=== PATIENT | female | born 1940 | race American Indian/Alaskan Native ===

== ENCOUNTER 2017-04-19 16:22 | Inpatient (IN) | payer MEDICARE, MEDICAID ==
[2017-04-19] MEDS ORDERED: Pantoprazole 40 MG in Sodium Chloride 0.9% 100 ML IV STA (16:45)
[2017-04-19] MEDS ORDERED: Sodium Chloride 0.9% 500 ML IV ONE (16:46)
--- NOTE | 2017-04-19 16:49 | ED PDOC ---
Arrival/HPI - General Chief Complaint: Abdominal Pain Time Seen by Provider: 04/19/17 16:27 Historian: Patient, EMS - History of Present Illness Time/Duration: Other (This morning) Symptom Onset: Gradual Symptom Course: Worsening Quality: Aching, Cramping Severity Level: Moderate Activities at Onset: Rest Associated Symptoms (Text): 04/19/17 16:47 Patient complains of generalized abdominal pain along with nausea vomiting and diarrhea beginning sometime this morning. There is chronic abdominal pain. She had CT scan and ultrasound of the abdomen in the spring which revealed cholelithiasis only. She denies fever or chills. Denies radiation. No back pain. No chest pain palpitations or dyspnea. No genitourinary symptoms. She is thin cachectic and chronically ill-appearing. Past Medical History - Infectious Disease Hx of Infectious Diseases: None - Reproductive Menopause: Yes - Cardiac Hx CT: Yes Hx Pacemaker: No - Neurological Hx Paralysis: No - Hematological/Oncological Hx Blood Transfusions: No Hx Blood Transfusion Reaction: No - Musculoskeletal/Rheumatological Hx Musculoskeletal Disorders: Yes - Psychiatric Hx Emotional Abuse: No Hx Physical Abuse: No Hx Substance Use: Yes (MARIJANA DAILY) - Surgical History Hx Hysterectomy: Yes - Anesthesia Hx Anesthesia: Yes Hx Anesthesia Reactions: No Hx Malignant Hyperthermia: No - Suicidal Assessment Feels Threatened In Home Enviroment: No Family/Social History - Physician Review Nursing Documentation Reviewed: Yes Family/Social History: Unknown Family HX Smoking Status: Never Smoked Hx Alcohol Use: Yes (6 PK/DAY BEER) Hx Substance Use: Yes (MARIJANA DAILY) Allergies/Home Meds Allergies/Adverse Reactions: Allergies No Known Allergies Allergy (Verified 07/06/13 11:01) Home Medications: Home Meds Medication Instructions Recorded Confirmed Atorvastatin Calcium [Lipitor] 40 mg PO DAILY 07/06/13 04/19/17 Esomeprazole Magnesium [Nexium] 40 mg PO DAILY 07/06/13 04/19/17 Aspirin [Ecotrin] 81 mg PO DAILY 04/04/16 04/19/17 Cholecalciferol (Vitamin D3) 1,000 unit PO DAILY 04/04/16 04/19/17 [Vitamin D3] Metoprolol Succinate [Metoprolol 100 mg PO DAILY 04/04/16 04/19/17 Succinate Xl] Valsartan [Diovan] 80 mg PO DAILY 04/04/16 04/19/17 Review of Systems - Physician Review All systems were reviewed & negative as marked: Yes - Review of Systems Constitutional: Fatigue. absent: Fevers Respiratory: absent: SOB, Cough, Wheezing Cardiovascular: absent: Chest Pain, Palpitations, Syncope Gastrointestinal: Abdominal Pain, Diarrhea, Nausea, Vomiting Genitourinary Female: absent: Dysuria, Frequency, Hematuria Neurological: absent: Headache, Dizziness Physical Exam Vital Signs Temp Pulse Resp BP Pulse Ox 04/19/17 18:29 60 15 147/82 100 04/19/17 17:45 57 L 13 151/80 H 100 04/19/17 16:31 98.6 F 57 L 19 150/78 100 Temperature: Afebrile Blood Pressure: Normal Pulse: Regular Respiratory Rate: Normal Appearance: Positive for: Well-Appearing, Non-Toxic, Uncomfortable, Cachectic Pain Distress: Mild Mental Status: Positive for: Alert and Oriented X 3 - Systems Exam Head: Present: Atraumatic, Normocephalic Pupils: Present: PERRL Extroacular Muscles: Present: EOMI Conjunctiva: Present: Normal Mouth: Present: Moist Mucous Membranes Pharnyx: No: ERYTHEMA, EXUDATE, TONSILS ENLARGED Neck: Present: Normal Range of Motion Respiratory/Chest: Present: Clear to Auscultation, Good Air Exchange, Decreased Breath Sounds. No: Respiratory Distress, Accessory Muscle Use Cardiovascular: Present: Regular Rate and Rhythm, Normal S1, S2. No: Murmurs Abdomen: Present: Tenderness (mild generalized tenderness with no guarding and no rebound), Normal Bowel Sounds. No: Distention, Peritoneal Signs, Rebound, Guarding Back: Present: Normal Inspection. No: CVA Tenderness, Midline Tenderness, Paraspinal Tenderness Upper Extremity: Present: Normal Inspection. No: Cyanosis, Edema Lower Extremity: Present: Normal Inspection. No: Edema Neurological: Present: GCS=15, CN II-XII Intact, Speech Normal, Motor Func Grossly Intact Skin: Present: Warm, Dry, Normal Color. No: Rashes Psychiatric: Present: Alert, Oriented x 3, Normal Insight, Normal Concentration Medical Decision Making ED Course and Treatment: 04/19/17 17:14 EKG shows normal sinus rhythm rate approximately 55 with poor R waves and no acute ST or T-wave changes 04/19/17 18:13 CT scan of the abdomen and pelvis as read by the radiologist shows a possible early small bowel obstruction. 04/19/17 18:34 Patient of 's. Hospitalist will admit - Lab Interpretations Lab Results: 04/19/17 17:05 04/19/17 17:05 Lab Results 04/19/17 17:26: Urine Color Yellow, Urine Appearance Clear, Urine pH 6.0, Ur Specific [place] 1.020, Urine Protein Negative, Urine Glucose (UA) Negative, Urine Ketones Negative, Urine Blood Small H, Urine Nitrate Negative, Urine Bilirubin Negative, Urine Urobilinogen 0.2, Ur Leukocyte Esterase Small H, Urine RBC 5 - 10, Urine WBC 10 - 15, Ur Epithelial Cells Many, Amorphous Sediment Small, Urine Bacteria Many, Urine Other Uyeast 04/19/17 17:05: Alcohol, Quantitative < 10 04/19/17 17:05: Sodium 140, Potassium 3.9, Chloride 107, Carbon Dioxide 22, Anion Gap 15, BUN 12, Creatinine 0.7, Est GFR ( Amer) > 60, Est GFR (Non- Af Amer) > 60, Random Glucose 114 H, Calcium 10.0, Total Bilirubin 0.5, AST 37 H , ALT 36, Alkaline Phosphatase 55, Lactate Dehydrogenase 550, Total Creatine Kinase 41, Troponin I < 0.01, Total Protein 7.0, Albumin 4.3, Globulin 2.7, Albumin/Globulin Ratio 1.6, Lipase 67 04/19/17 17:05: PT 10.2, INR 0.94, APTT 20.8 L 04/19/17 17:05: WBC 10.5 D, RBC 3.61, Hgb 12.7, Hct 36.6, MCV 101.4, MCH 35.2 H , MCHC 34.7, RDW 12.6, Plt Count 242, MPV 8.8, Gran % 75.4 H, Lymph % (Auto) 20.1 L, [place] % (Auto) 4.0, Eos % (Auto) 0.3 L, Baso % (Auto) 0.2, Gran # 7.90 H , Lymph # 2.1, [place] # 0.4, Eos # 0.0, Baso # 0.02 - RAD Interpretation Radiology Orders: 04/19/17 16:45 ABD & PELVIS W/O PO OR IV CONT [CT] Stat CHEST PORTABLE [RAD] Stat chest 1 view shows no infiltrate or effusion or cardiomegaly 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 - Medication Orders Current Medication Orders: Discontinued Medications Pantoprazole Sodium 40 mg/ (Sodium Chloride) 100 mls @ 400 mls/hr IV STAT STA Stop: 04/19/17 16:59 Last Admin: 04/19/17 17:00 Dose: 400 mls/hr eMAR Start Stop Document 04/19/17 17:00 GMI (Rec: 04/19/17 17:09 GMI [id number]) Intravenous Solution Start Date 04/19/17 Start Time 17:09 End Date 04/19/17 End time 17:50 Total Infusion Time 41 Sodium Chloride (Sodium Chloride 0.9%) 500 mls @ 500 mls/hr IV ONCE ONE Stop: 04/19/17 17:45 Last Admin: 04/19/17 17:06 Dose: 500 mls/hr eMAR Start Stop Document 04/19/17 17:06 GMI (Rec: 04/19/17 17:08 GMI [id number]) Intravenous Solution Start Date 04/19/17 Start Time 17:08 Ketorolac Tromethamine (Toradol) 15 mg IVP STAT STA Stop: 04/19/17 16:46 Last Admin: 04/19/17 17:20 Dose: 15 mg MAR Pain Assessment Document 04/19/17 17:20 GMI (Rec: 04/19/17 17:21 GMI [id number]) Pain Reassessment Is this a pain reassessment? Yes Sleep Is patient sleeping during reassessment? No Presence of Pain Presence of Pain Yes Pain Scale Used Pain Scale Used Numeric Location Pain Location Body Site Abdomen Description Description Constant Intensity of Pain at present 9 Pain Behavior Facial Grimacing Alleviating Factors/Management Position Change Techniques Distraction IVP Administration Document 04/19/17 17:20 GMI (Rec: 04/19/17 17:21 GMI [id number]) Charges for Administration # of IVP Administrations 1 Ondansetron HCl (Zofran Inj) 4 mg IVP STAT STA Stop: 04/19/17 16:46 Last Admin: 04/19/17 17:06 Dose: 4 mg IVP Administration Document 04/19/17 17:06 GMI (Rec: 04/19/17 17:06 GMI [id number]) Charges for Administration # of IVP Administrations 1 Disposition/Present on Arrival - Present on Arrival Any Indicators Present on Arrival: No History of DVT/PE: No History of Uncontrolled Diabetes: No Urinary Catheter: No History of Decub. Ulcer: No History Surgical Site Infection Following: None - Disposition Have Diagnosis and Disposition been Completed?: Yes Diagnosis: Abdominal pain, Nausea and vomiting, Partial small bowel obstruction Disposition: HOSPITALIZED Disposition Time: 18:22 Patient Plan: Observation Patient Problems: Current Active Problems Problem Status Onset Abdominal pain Acute Nausea and vomiting Acute Partial small bowel obstruction Acute Condition: FAIR Forms: [employer] (Guatemalan)
[2017-04-19 17:26] LABS: BASO # 0.02 K/mm3 (0.0-2.0); BASO % 0.2 % (0.0-3.0); EOS % 0.3 % (1.5-5.0); GRAN # 7.9 (1.4-6.5); GRAN % 75.4 % (50.0-68.0); HEMATOCRIT 36.6 % (36.0-48.0); LYMPH # 2.1 (1.2-3.4); LYMPH % 20.1 % (22.0-35.0); MEAN CELL VOLUME 101.4 fl (80.0-105.0); MEAN CORPUSCULAR HEMOGLOBIN 35.2 pg (25.0-35.0); MEAN CORPUSCULAR HGB CONC 34.7 g/dl (31.0-37.0); MEAN PLATELET VOLUME 8.8 fl (7.0-11.0); MONO # 0.4 (0.1-0.6); RED CELL DISTRIBUTION WIDTH 12.6 % (11.5-14.5); WHITE BLOOD COUNT 10.5 10^3/ul (4.5-11.0)
[2017-04-19 17:34] LABS: INR 0.94 (0.93-1.08); PARTIAL THROMBOPLASTIN TIME 20.8 Seconds (23.7-30.8)
[2017-04-19 17:38] LABS: URINE BILIRUBIN NEGATIVE (NEGATIVE); URINE BLOOD SMALL (NEGATIVE); URINE GLUCOSE (UA) NEGATIVE (NEGATIVE); URINE KETONE NEGATIVE (NEGATIVE); URINE LEUKOCYTE ESTERASE SMALL Leu/uL (NEGATIVE); URINE PROTEIN NEGATIVE mg/dL (<30 mg/dL); URINE UROBILINOGEN 0.2 E.U./dL (<1 E.U./dL)
[2017-04-19 17:43] LABS: URINE APPEARANCE CLEAR (CLEAR); URINE COLOR YELLOW (YELLOW)
[2017-04-19 17:54] LABS: URINE AMORPHOUS SEDIMENT SMALL; URINE BACTERIA MANY (NEG); URINE EPITHELIAL CELLS MANY /hpf (0-5)
[2017-04-19 17:57] LABS: ALB/GLOB RATIO 1.6 (1.1-1.8); ALKALINE PHOSPHATASE 55 U/L (38-126); ALT/SGPT 36 U/L (7-56); AST/SGOT 37 U/L (14-36); BILIRUBIN,TOTAL 0.5 mg/dL (0.2-1.3); BLOOD UREA NITROGEN 12 mg/dL (7-21); CARBON DIOXIDE 22 mmol/L (21-33); CHLORIDE 107 mmol/L (98-107); GFR AFRICAN-AMERICAN > 60; GLUCOSE,RANDOM 114 mg/dL (70-110); LIPASE 67 U/L (23-300); POTASSIUM 3.9 mmol/L (3.6-5.0); SODIUM 140 mmol/L (132-148)
--- NOTE | 2017-04-19 18:10 | CT ---
PROCEDURE: CT Abdomen and Pelvis without intravenous contrast HISTORY: Abdominal pain COMPARISON: 01/01/2017 CT abdomen and pelvis. 02/03/2017 abdominal ultrasound TECHNIQUE: Unenhanced study. Neither oral nor intravenous contrast administered. Sensitivity and specificity for acute inflammatory processes limited by the absence of oral and intravenous contrast. Radiation dose: Total exam DLP = 219.10 mGy-cm. This CT exam was performed using one or more of the following dose reduction techniques: Automated exposure control, adjustment of the mA and/or kV according to patient size, and/or use of iterative reconstruction technique. FINDINGS: LOWER THORAX: Unremarkable. LIVER: Unremarkable. No gross lesion or ductal dilatation. GALLBLADDER AND BILE DUCTS: Cholelithiasis without CT evidence of acute cholecystitis. PANCREAS: Unremarkable. No gross lesion or ductal dilatation. SPLEEN: Unremarkable. ADRENALS: Unremarkable. No mass. KIDNEYS AND URETERS: Unremarkable. No hydronephrosis. No solid mass. VASCULATURE: Unremarkable. No aortic aneurysm. BOWEL: Dilatation of distal loops of small bowel primarily affecting the ileum. No mechanical obstruction or extrinsic, mass lesion is identified. Distended colon filled with fecal debris. Gastric distension without mechanical, obstructing process. APPENDIX: Unremarkable. Normal appendix. PERITONEUM: Unremarkable. No free fluid. No free air. LYMPH NODES: Unremarkable. No enlarged lymph nodes. BLADDER: Unremarkable. REPRODUCTIVE: Unremarkable. BONES: No acute fracture. OTHER FINDINGS: None. IMPRESSION: Dilated loops of pelvic and right lower quadrant loops of small bowel. More proximally the small bowel is unremarkable. Differential considerations include ileus. Early, incomplete or Closed loop obstruction can also assume this appearance. Additional benign and/or incidental findings described above.
[2017-04-19 18:15] LABS: TROPONIN I < 0.01 ng/mL
[2017-04-19] MEDS ORDERED: Morphine 2 mg/ml ISec IVP PRN (20:40)
--- NOTE | 2017-04-19 20:46 | CP.PCM.HP ---
<Aroldo Bone - Last Filed: 04/20/17 05:03> History of Present Illness - History of Present Illness History of Present Illness: Chief Complaint Abdominal pain associated with severe nausea and vomiting HPI Patient is a 77 year old female with a past medical history of PUD, PVD, HTN, dyslipidemia, DE 96' who presents to [facility] ED on 04/19/17 with abdominal pain associated with nausea and vomiting. Patient states she went about her normal day had fish and grits for breakfast followed by ice cream for lunch. She states that she then took her heart and HTN medications. Around 1 pm while watching television patient states she felt sharp pins and needles diffusely throughout her abdomen radiating to her groin. Patient rated the pain a 10/10 which is exacerbated with any movement but especially towards the right side. Pain has no relieving factors. Patient admits to a surgical history including a hysterectomy which took place around 50 years ago. She states that she in the past frequently had colonoscopies done due to her first episode of bleeding ulcers when she was in her 30's; states that her last colonoscopy was between 5- 10 years prior. Patient admits to feeling dizzy from time to time which began a couple of months ago. Patient denies shortness of breath, headache, diarrhea, dysuria. PMD: Dr. Fitch Surgical history: hysterectomy Social history: states she quit smoking tobacco in 96', drinks 6 beers a day , admits to daily marijuana use Allergies: NKDA Family history: non-contributory Present on Admission - Present on Admission Any Indicators Present on Admission: No Review of Systems - Constitutional Constitutional: absent: Chills, Fever - EENT Eyes: absent: Blurred Vision, Diplopia Ears: absent: Decreased Hearing, Ear Discharge Nose/Mouth/Throat: absent: Nasal Congestion, Nasal Discharge - Cardiovascular Cardiovascular: absent: Chest Pain, Dyspnea, Edema - Respiratory Respiratory: absent: Cough, Dyspnea - Gastrointestinal Gastrointestinal: Abdominal Pain, Nausea, Vomiting - Genitourinary Genitourinary: absent: Change in Urinary Stream, Difficulty Urinating, Dysuria - Musculoskeletal Musculoskeletal: absent: Abnormal Gait, Back Pain - Integumentary Integumentary: absent: Alopecia, Bleeding Lesions - Neurological Neurological: absent: Abnormal Hearing, Abnormal Movements - Psychiatric Psychiatric: absent: Abnormal Sleep Pattern, Anhedonia - Endocrine Endocrine: absent: Change in Body Appearance, Cold Intolorance - Hematologic/Lymphatic Hematologic: absent: Easy Bleeding, Easy Bruising Past Patient History - Infectious Disease Hx of Infectious Diseases: None - Past Social History Smoking Status: Never Smoked - CARDIAC Hx Heart Attack: Yes Hx Pacemaker: No - NEUROLOGICAL Hx Paralysis: No - HEMATOLOGICAL/ONCOLOGICAL Hx Blood Transfusions: No Hx Blood Transfusion Reaction: No - MUSCULOSKELETAL/RHEUMATOLOGICAL Hx Musculoskeletal Disorders: Yes - PSYCHIATRIC Hx Emotional Abuse: No Hx Physical Abuse: No Hx Substance Use: Yes (MARIJANA DAILY) - SURGICAL HISTORY Hx Hysterectomy: Yes - ANESTHESIA Hx Anesthesia: Yes Hx Anesthesia Reactions: No Hx Malignant Hyperthermia: No Meds Allergies/Adverse Reactions: Allergies Allergy/AdvReac Type Severity Reaction Status Date / Time No Known Allergies Allergy Verified 07/06/13 11:01 Physical Exam - Constitutional Appears: Non-toxic - Head Exam Head Exam: ATRAUMATIC, NORMAL INSPECTION, NORMOCEPHALIC - Eye Exam Eye Exam: EOMI, Normal appearance - ENT Exam ENT Exam: Mucous Membranes Moist, Normal Exam - Neck Exam Neck exam: Positive for: Normal Inspection - Respiratory Exam Respiratory Exam: Clear to Auscultation Bilateral, NORMAL BREATHING PATTERN - Cardiovascular Exam Cardiovascular Exam: REGULAR RHYTHM, +S1, +S2. absent: Diastolic murmur, Irregular Rhythm, Systolic Murmur - GI/Abdominal Exam GI & Abdominal Exam: Soft, Tenderness (diffuse). absent: Distended, Normal Bowel Sounds - Back Exam Back exam: NORMAL INSPECTION - Neurological Exam Neurological exam: Alert, CN II-XII Intact, Oriented x3 Results - Vital Signs Recent Vital Signs: Last Vital Signs Temp 98.6 F 04/19/17 16:31 Pulse 60 04/19/17 18:29 Resp 15 04/19/17 18:29 BP 147/82 04/19/17 18:29 Pulse Ox 100 04/19/17 18:29 - Labs Result Diagrams: 04/19/17 17:05 04/19/17 17:05 Assessment & Plan - Assessment and Plan (Free Text) Assessment: Assessment 77 year old female with small bowel ileus Plan 1. Small Bowel Ileus -CT abdomen revealed dilated loops of pelvic and right lower quadrant loops of small bowel - NPO - IVF - Zofran - Toradol - GI consulted; recs appreciated - Surg consulted; recs appreciated 2. PUD - Protonix 3. HTN - Metoprolol 4. PVD - Aspirin 5. Dyslipidemia - Atorvastatin DVT/GI prophylaxis - Heparin/Protonix <Theresa Virgen - Last Filed: 04/20/17 18:45> Results - Vital Signs Recent Vital Signs: Last Vital Signs Temp 98.7 F 04/20/17 16:21 Pulse 61 04/20/17 16:21 Resp 20 04/20/17 16:21 BP 184/94 H 04/20/17 16:21 Pulse Ox 99 04/20/17 16:21 - Labs Result Diagrams: 04/20/17 06:00 04/20/17 06:00 Labs: Laboratory Results - last 24 hr 04/20/17 04/20/17 04/20/17 00:18 06:00 06:00 WBC 9.0 RBC 3.73 Hgb 12.8 Hct 37.7 MCV 101.1 MCH 34.3 MCHC 34.0 RDW 12.6 Plt Count 242 MPV 8.7 Gran % 81.3 H Lymph % (Auto) 15.7 L [place] % (Auto) 2.9 Eos % (Auto) 0.0 L Baso % (Auto) 0.1 Gran # 7.35 H Lymph # 1.4 [place] # 0.3 Eos # 0.0 Baso # 0.01 PT INR APTT Sodium 143 Potassium 3.6 Chloride 108 H Carbon Dioxide 26 Anion Gap 13 BUN 9 Creatinine 0.8 Est GFR ( Amer) > 60 Est GFR (Non-Af Amer) > 60 Random Glucose 116 H Calcium 9.9 Phosphorus 3.0 Magnesium 1.9 Total Bilirubin 0.5 AST 31 ALT 32 Alkaline Phosphatase 60 Total Protein 6.8 Albumin 4.2 Globulin 2.6 Albumin/Globulin Ratio 1.6 Urine Opiates Screen Negative Urine Methadone Screen Negative Ur Barbiturates Screen Negative Ur Phencyclidine Scrn Negative Ur Amphetamines Screen Negative U Benzodiazepines Scrn Negative U Oth Cocaine Metabols Negative U Cannabinoids Screen Positive H 04/20/17 06:00 WBC RBC Hgb Hct MCV MCH MCHC RDW Plt Count MPV Gran % Lymph % (Auto) [place] % (Auto) Eos % (Auto) Baso % (Auto) Gran # Lymph # [place] # Eos # Baso # PT 10.2 INR 0.94 APTT 24.5 Sodium Potassium Chloride Carbon Dioxide Anion Gap BUN Creatinine Est GFR ( Amer) Est GFR (Non-Af Amer) Random Glucose Calcium Phosphorus Magnesium Total Bilirubin AST ALT Alkaline Phosphatase Total Protein Albumin Globulin Albumin/Globulin Ratio Urine Opiates Screen Urine Methadone Screen Ur Barbiturates Screen Ur Phencyclidine Scrn Ur Amphetamines Screen U Benzodiazepines Scrn U Oth Cocaine Metabols U Cannabinoids Screen Attending/Attestation - Attestation I have personally seen and examined this patient.: Yes I have fully participated in the care of the patient.: Yes I have reviewed all pertinent clinical information: Yes Notes (Text): 04/20/17 18:45 Agree with history, physical examination, assessment and plan.
[2017-04-19] MEDS: Sodium Chloride 0.9% 1,000 ML IV SCH (20:49)
[2017-04-19 21:46] VITALS: BMI 17.2
[2017-04-19] MEDS ORDERED: Pneumococcal 23-Valent Vaccine IM ONE (21:47)
--- NOTE | 2017-04-20 00:41 | CP.PCM.CON ---
History of Present Illness - History of Present Illness History of Present Illness: Surgery Consult Note. Dr. Hernandez 77yo F with PMHx of PUD, PVD, HTN, HLD, SD here for evaluation of abdominal pain. Patient states that the pain started around 1PM yesterday afternoon after eating her "heart" and BP meds. She states that she ate fish and grits in the morning around 10AM and a cup of ice cream around 12PM. Abdominal pain is described as sharp and located in the periumbilical region and radiates throughout the entire abdomen. She reports associated nausea and vomiting x3 episodes, non bloody, non bilious. She denies any diarrhea. No recent sick contacts or illnesses. Denies fevers or chills. She also reports dysuria described as burning which started this morning. No headaches. No CP/SOB. PMHx: PUD, PVD, HTN, HLD, SD PSHx: Coronary Balloon Angioplasty ', Hysterectomy, Left breast bx (benign) Family Hx: Denies Social Hx: Lives alone in apartment. Previous heavy ETOH use (last drink in her 20s). Current Daily Marijuana use NKDA Review of Systems - Review of Systems All systems: reviewed and no additional remarkable complaints except - Constitutional Constitutional: absent: Chills, Fever - Cardiovascular Cardiovascular: absent: Chest Pain, Dyspnea - Respiratory Respiratory: absent: Dyspnea - Gastrointestinal Gastrointestinal: Abdominal Pain, Nausea, Vomiting. absent: Diarrhea, Dyspepsia , Hematemesis, Hematochezia, Melena - Genitourinary Genitourinary: Dysuria. absent: Flank Pain - Musculoskeletal Musculoskeletal: absent: Back Pain Past Patient History - Infectious Disease Hx of Infectious Diseases: None - Past Medical History & Family History Past Medical History?: Yes Past Family History: Reviewed and not pertinent - Past Social History Smoking Status: Never Smoked Chewing Tobacco Use: No Cigar Use: No Alcohol: None (Reports heavy ETOH use in her 20s, none currently) Drugs: Cannabis Home Situation {Lives}: Alone - CARDIAC Hx Heart Attack: Yes Hx Pacemaker: No - NEUROLOGICAL Hx Paralysis: No - HEMATOLOGICAL/ONCOLOGICAL Hx Blood Transfusions: No Hx Blood Transfusion Reaction: No - MUSCULOSKELETAL/RHEUMATOLOGICAL Hx Musculoskeletal Disorders: Yes - PSYCHIATRIC Hx Emotional Abuse: No Hx Physical Abuse: No Hx Substance Use: Yes (MARIJANA DAILY) - SURGICAL HISTORY Hx Hysterectomy: Yes - ANESTHESIA Hx Anesthesia: Yes Hx Anesthesia Reactions: No Hx Malignant Hyperthermia: No Meds Allergies/Adverse Reactions: Allergies Allergy/AdvReac Type Severity Reaction Status Date / Time No Known Allergies Allergy Verified 07/06/13 11:01 - Medications Medications: Current Medications Aspirin (Ecotrin) 81 mg PO DAILY [facility] Atorvastatin Calcium (Lipitor) 40 mg PO DAILY [facility] Heparin Sodium (Porcine) (Heparin) 5,000 units SC Q12 [facility] PRN Reason: Protocol Last Admin: 04/19/17 21:00 Dose: 5,000 units Sodium Chloride (Sodium Chloride 0.9%) 1,000 mls @ 100 mls/hr IV .Q10H [facility] Last Admin: 04/19/17 20:49 Dose: 100 mls/hr Ceftriaxone Sodium (Rocephin 1 Gram Ivpb) 1 gm in 100 mls @ 100 mls/hr IVPB DAILY [facility] PRN Reason: Protocol Ketorolac Tromethamine (Toradol) 30 mg IVP Q6 PRN PRN Reason: Nausea/Vomiting Last Admin: 04/19/17 22:03 Dose: 30 mg Metoprolol Succinate (Toprol Xl) 100 mg PO DAILY [facility] Ondansetron HCl (Zofran Inj) 4 mg IVP Q4H PRN PRN Reason: Nausea/Vomiting Last Admin: 04/19/17 21:00 Dose: 4 mg Pantoprazole Sodium (Protonix Inj) 40 mg IVP BID [facility] Physical Exam - Constitutional Appears: Well, No Acute Distress - Head Exam Head Exam: ATRAUMATIC, NORMAL INSPECTION, NORMOCEPHALIC - Eye Exam Eye Exam: EOMI - ENT Exam ENT Exam: Mucous Membranes Moist - Neck Exam Neck exam: Positive for: Full Rom - Respiratory Exam Respiratory Exam: NORMAL BREATHING PATTERN. absent: Decreased Breath Sounds, Rhonchi, Wheezes, Respiratory Distress - Cardiovascular Exam Cardiovascular Exam: RRR, +S1, +S2. absent: JVD - GI/Abdominal Exam GI & Abdominal Exam: Soft, Tenderness. absent: Distended, Firm, Guarding, Rebound, Rigid Additional comments: periumbilical tenderness. Diffusely tender to palpation, worse in lower abdomen. - Extremities Exam Extremities exam: Positive for: normal inspection. Negative for: calf tenderness, pedal edema - Neurological Exam Neurological exam: Alert, Oriented x3 Results - Vital Signs Recent Vital Signs: Last Vital Signs Temp 98.9 F 04/19/17 21:39 Pulse 60 10/07/17 21:39 Resp 15 04/19/17 21:39 BP 147/82 04/19/17 21:39 Pulse Ox 100 04/19/17 18:29 - Labs Result Diagrams: 04/20/17 06:00 04/20/17 06:00 Assessment & Plan - Assessment and Plan (Free Text) Assessment: 77yo F with Partial SBO - CT w/o oral or IV contrast with dilated distal SB, dilated stomach. Unremarkable proximal SB. No evidence of GB disease. - NPO for bowel rest - Zofran prn - Pain management - IVF - Will place NG for proximal decompression if continues to have N/V - F/u GI recs - No acute surgical plans - medical management as per primary Further recs as per Dr. David Cedeno PGY1 surgery pager: [phone]
[2017-04-20] MEDS: Sodium Chloride 0.9% 1,000 ML IV SCH (06:30)
[2017-04-20 07:00] LABS: BASO # 0.01 K/mm3 (0.0-2.0); BASO % 0.1 % (0.0-3.0); GRAN # 7.35 (1.4-6.5); GRAN % 81.3 % (50.0-68.0); HEMATOCRIT 37.7 % (36.0-48.0); LYMPH # 1.4 (1.2-3.4); LYMPH % 15.7 % (22.0-35.0); MEAN CELL VOLUME 101.1 fl (80.0-105.0); MEAN CORPUSCULAR HEMOGLOBIN 34.3 pg (25.0-35.0); MEAN PLATELET VOLUME 8.7 fl (7.0-11.0); MONO # 0.3 (0.1-0.6); MONO % 2.9 % (1.0-6.0); RED CELL DISTRIBUTION WIDTH 12.6 % (11.5-14.5)
[2017-04-20 07:07] LABS: INR 0.94 (0.93-1.08); PARTIAL THROMBOPLASTIN TIME 24.5 Seconds (23.7-30.8)
[2017-04-20 07:12] LABS: ALB/GLOB RATIO 1.6 (1.1-1.8); ALKALINE PHOSPHATASE 60 U/L (38-126); ALT/SGPT 32 U/L (7-56); AST/SGOT 31 U/L (14-36); BILIRUBIN,TOTAL 0.5 mg/dL (0.2-1.3); BLOOD UREA NITROGEN 9 mg/dL (7-21); CALCIUM 9.9 mg/dL (8.4-10.5); CARBON DIOXIDE 26 mmol/L (21-33); CHLORIDE 108 mmol/L (98-107); GFR AFRICAN-AMERICAN > 60; GLUCOSE,RANDOM 116 mg/dL (70-110); MAGNESIUM 1.9 mg/dL (1.7-2.2); POTASSIUM 3.6 mmol/L (3.6-5.0); SODIUM 143 mmol/L (132-148); TOTAL PROTEIN 6.8 g/dL (5.8-8.3)
[2017-04-20] MEDS: cefTRIAXone 1 gm 1 GM/100 ML BAG IVPB SCH (09:00)
[2017-04-20] MEDS: Metoprolol Succinate 100 mg XL Tab PO SCH (09:01)
[2017-04-20] MEDS ORDERED: Iohexol 240 (50 ml) ONE (15:20)
--- NOTE | 2017-04-20 16:20 | RAD ---
HISTORY: s/p NGT COMPARISON: April 19, 2017. FINDINGS: LUNGS: No active pulmonary disease. PLEURA: No significant pleural effusion identified, no pneumothorax apparent. CARDIOVASCULAR: No radiographic findings to suggest acute or significant cardiovascular disease. OSSEOUS STRUCTURES: No significant abnormalities. VISUALIZED UPPER ABDOMEN: Normal. OTHER FINDINGS: Nasogastric tube courses through the esophagus into a decompressed stomach. IMPRESSION: No active disease. Satisfactory position of recently placed nasogastric
--- NOTE | 2017-04-20 16:32 | CON ---
DATE: 04/20/2017 HISTORY OF PRESENT ILLNESS: Ms. De Leon was evaluated this morning. She is a 77-year-old female with a past medical history of coronary artery disease, peptic ulcer disease, hypertension, PA, hysterectomy, admitted with complaints of abdominal pain. She indicated periodic constipation, and for a day or so prior to admission, ate substantial amount of food more than usual. Several hours later, the patient developed diffuse abdominal pain especially in periumbilical area especially with abdominal distention, nausea, and vomiting. No fever or chills. The patient has not had anything like this before or previous episodes of diverticulitis. She has not had any colonic surgery. PHYSICAL EXAMINATION: VITAL SIGNS: I reviewed this patient's vital signs. HEENT: Significant for dry mouth. LUNGS: Decreased breath sounds basilar. HEART: Irregular rhythm. ABDOMEN: Mildly distended. She is tender over the right lower quadrant, right paraumbilical, right upper quadrant, and above the umbilicus to the right. She is also tender in the periumbilical area. The right half of the abdomen appears mildly distended. She has no tenderness elicited over the left upper quadrant nor left paraumbilical. Palpation of the left lower quadrant elicits some radiation and discomfort over to the right side and the periumbilical area. She has irregular bowel sounds. LABORATORY DATA: I reviewed this patient's laboratory results. CBC is noncontributory except for mildly elevated WBC. She has mild elevation of AST on her chemistry, but she is in the range of 115 for glucose. Remainder is noncontributory. Urine is positive for cannabinoids. I reviewed this patient's CT images plus report. The gallbladder shows evidence of some stones. There is no evidence of cholecystitis in the form of pericholecystic fluid with dilated bile duct. View of the bowel loops indicated impaction in the area of the ascending colon extending to the area of the proximal transverse. The distal colon appears decompressed. She does have some stool noted in the distal small bowel, but there are no other fluid levels. Remainder of the CT is noncontributory. ASSESSMENT AND PLAN: This is a 77-year-old female with complaints of abdominal pain, evidence of fecal impaction noted in the area of the proximal one-third of the colon that is involving ascending transverse. This correlates to her physical exam. We would suggest a trial of water enemas to facilitate movement of the impaction distally to the area of the descending colon and sigmoid. Note that because of nausea issues and a dilated small bowel plus proximal colon, a colon prep would most likely not be tolerated. Diet العلي, since recurrent nausea has been issue with this patient, we suggest n.p.o. with ice chips at least temporarily until she become less symptomatic. Surgery will reevaluate this patient later on this morning. Derik Berman DO, PhD MTDVikash
--- NOTE | 2017-04-20 17:08 | RAD ---
HISTORY: Abdominal pain COMPARISON: April 20, 2017. Time of examination 15:16 FINDINGS: LUNGS: No active pulmonary disease. PLEURA: No significant pleural effusion identified, no pneumothorax apparent. CARDIOVASCULAR: Normal. OSSEOUS STRUCTURES: No significant abnormalities. VISUALIZED UPPER ABDOMEN: Normal. OTHER FINDINGS: Removal of support apparatus since the prior study: Nasogastric tube IMPRESSION: No active disease. Concordant results with the preliminary interpretation rendered by the emergency department physician procedure.
--- NOTE | 2017-04-20 19:50 | CARD ---
APPROVED REPORT EKG Measurement Heart [id number] <Conclusion> Sinus bradycardia Cannot rule out Anterior infarct, age undetermined Abnormal ECG
[2017-04-21 07:19] LABS: HEMATOCRIT 41.2 % (36.0-48.0); MEAN CELL VOLUME 100.5 fl (80.0-105.0); MEAN CORPUSCULAR HEMOGLOBIN 34.4 pg (25.0-35.0); MEAN CORPUSCULAR HGB CONC 34.2 g/dl (31.0-37.0); MEAN PLATELET VOLUME 9.1 fl (7.0-11.0); RED CELL DISTRIBUTION WIDTH 12.4 % (11.5-14.5); WHITE BLOOD COUNT 8.6 10^3/ul (4.5-11.0)
[2017-04-21] MEDS ORDERED: Bisacodyl 5mg EC Tab PO ONE (07:23)
[2017-04-21 07:36] LABS: ALB/GLOB RATIO 1.5 (1.1-1.8); ALKALINE PHOSPHATASE 58 U/L (38-126); ALT/SGPT 34 U/L (7-56); AST/SGOT 22 U/L (14-36); BILIRUBIN,TOTAL 0.8 mg/dL (0.2-1.3); BLOOD UREA NITROGEN 10 mg/dL (7-21); CALCIUM 9.4 mg/dL (8.4-10.5); CARBON DIOXIDE 27 mmol/L (21-33); CHLORIDE 106 mmol/L (95-110); GFR AFRICAN-AMERICAN > 60; GLUCOSE,RANDOM 130 mg/dL (70-110); MAGNESIUM 1.9 mg/dL (1.7-2.2); POTASSIUM 5.4 mmol/L (3.6-5.0); SODIUM 141 mmol/L (132-148); TOTAL PROTEIN 6.4 g/dL (5.8-8.3)
--- NOTE | 2017-04-21 08:01 | CP.PCM.CON ---
<TannerCaitlyn - Last Filed: 04/21/17 09:32> History of Present Illness - History of Present Illness History of Present Illness: PGY 4 Initial GI Note Delbert De Leon is a 77F w/ hx of PUD, PVD, HTN, HL, and CAD who presented to the ER with complaints of severe abd pain. Pts stated that the onset was 1 day prior to arrival. She notes that she had a normal breakfast in the AM then proceeded to have Ice cream for lunch. Shortly afterwards, she started to experience 10 out of 10 abd pain and was diffuse. Pt states that initially it may have radiated to her right groin. Concurrently, pt states that she started to experience intractable nausea and vomiting. She states that the vomitus was bile like and denies any blood or coffee-ground emesis. Pt states that she then proceeded to to the ER for fever eval. Prior to the ER visit, the patient states that she was having daily BM and they there formed, but she recalls the feeling of incomplete evacuation. CT of the abd and pelvis revealed fecalization of the distal small bowel and dilated small bowel loops. She was kept NPO and given a water enema without significant relief. Eventually an NG tube was place for refractory vomiting. As per pt, 1.5 wall containers have been emptied. Today, the pt states that her pain is 4/5 out of 10. She notes that she is still nauseous., She states that she was an episode of flatus in the AM, but denies any additional BM. Pt established care with Dr Rodriguez and an outpt in 03/2016 for dysphagia and screening colonoscopy. EGD and colonoscopy on 04/08/16 revealed + h. pylori, 2 sessile polyps, gastritis, and diverticuli. Pt was then treated for H. Pylori with triple abx regiment. Breath test 2 months afterwards confirmed eradication. Pt was supposed to be on PPI daily for dyspepsia and dysphagia. PMHx: PUD, PVD, HTN, HLD, CA PSHx: Coronary Balloon Angioplasty ', Hysterectomy, Left breast bx (benign) Family Hx: Denies Social Hx: Lives alone in apartment. Previous heavy ETOH use (last drink in her 20s). Current Daily Marijuana use Endoscopy Hx: 07/09/13 EGD (Dr. Traylor): gastritis ; 04/08/16 EGD (Dr. Rodriguez) gastritis, + h.pylori, neg eosinophilic esophagitis; 04/08/16 Colonoscopy: diverticuli and x2 sessile poylps Past Patient History - Infectious Disease Hx of Infectious Diseases: None - Past Medical History & Family History Past Medical History?: Yes Past Family History: Reviewed and not pertinent - Past Social History Smoking Status: Never Smoked Chewing Tobacco Use: No Cigar Use: No Alcohol: None (Reports heavy ETOH use in her 20s, none currently) Drugs: Cannabis Home Situation {Lives}: Alone - CARDIAC Hx Heart Attack: Yes Hx Pacemaker: No - NEUROLOGICAL Hx Paralysis: No - HEMATOLOGICAL/ONCOLOGICAL Hx Blood Transfusions: No Hx Blood Transfusion Reaction: No - MUSCULOSKELETAL/RHEUMATOLOGICAL Hx Musculoskeletal Disorders: Yes - PSYCHIATRIC Hx Emotional Abuse: No Hx Physical Abuse: No Hx Substance Use: Yes (MARIJANA DAILY) - SURGICAL HISTORY Hx Hysterectomy: Yes - ANESTHESIA Hx Anesthesia: Yes Hx Anesthesia Reactions: No Hx Malignant Hyperthermia: No Meds Allergies/Adverse Reactions: Allergies Allergy/AdvReac Type Severity Reaction Status Date / Time No Known Allergies Allergy Verified 07/06/13 11:01 - Medications Medications: Current Medications Atorvastatin Calcium (Lipitor) 40 mg PO DAILY [facility] Last Admin: 04/20/17 09:01 Dose: 40 mg Heparin Sodium (Porcine) (Heparin) 5,000 units SC Q12 [facility] PRN Reason: Protocol Last Admin: 04/20/17 21:52 Dose: 5,000 units Ceftriaxone Sodium (Rocephin 1 Gram Ivpb) 1 gm in 100 mls @ 100 mls/hr IVPB DAILY [facility] PRN Reason: Protocol Last Admin: 04/20/17 09:00 Dose: 100 mls/hr Potassium Chloride 40 meq/ (Sodium Chloride) 1,020 mls @ 100 mls/hr IV .[id number] [facility] Last Admin: 04/20/17 11:52 Dose: 100 mls/hr Ketorolac Tromethamine (Toradol) 30 mg IVP Q6 PRN PRN Reason: Nausea/Vomiting Last Admin: 04/21/17 03:35 Dose: 30 mg Metoprolol Succinate (Toprol Xl) 100 mg PO DAILY [facility] Last Admin: 04/20/17 09:01 Dose: 100 mg Ondansetron HCl (Zofran Inj) 4 mg IVP Q4H PRN PRN Reason: Nausea/Vomiting Last Admin: 04/21/17 03:35 Dose: 4 mg Pantoprazole Sodium (Protonix Inj) 40 mg IVP BID [facility] Last Admin: 04/20/17 17:50 Dose: 40 mg Physical Exam - Head Exam Head Exam: ATRAUMATIC, NORMOCEPHALIC - Eye Exam Eye Exam: Normal appearance - ENT Exam ENT Exam: Mucous Membranes Moist Additional comments: +NG tube - Respiratory Exam Respiratory Exam: Clear to Auscultation Bilateral, NORMAL BREATHING PATTERN. absent: Rales, Rhonchi, Wheezes, Respiratory Distress - Cardiovascular Exam Cardiovascular Exam: REGULAR RHYTHM, +S1, +S2 - GI/Abdominal Exam GI & Abdominal Exam: Normal Bowel Sounds, Soft, Tenderness (Left lower and right lower quadrants). absent: Distended, Guarding, Rebound, Rigid - Extremities Exam Extremities exam: Negative for: joint swelling, pedal edema - Neurological Exam Neurological exam: Alert, Oriented x3 - Psychiatric Exam Psychiatric exam: Normal Affect, Normal Mood - Skin Skin Exam: Dry, Intact, Normal Color, Warm Results - Vital Signs Recent Vital Signs: Last Vital Signs Temp 98.1 F 04/21/17 07:30 Pulse 71 04/21/17 07:30 Resp 20 04/21/17 07:30 BP 177/91 H 04/21/17 07:30 Pulse Ox 98 04/21/17 07:30 - Labs Result Diagrams: 04/21/17 06:45 04/21/17 06:45 Labs: Laboratory Results - last 24 hr 04/21/17 06:45 WBC 8.6 RBC 4.10 Hgb 14.1 Hct 41.2 MCV 100.5 MCH 34.4 MCHC 34.2 RDW 12.4 Plt Count 231 MPV 9.1 Assessment & Plan - Assessment and Plan (Free Text) Assessment: Delbert De Leon is a 77 F w/ hx of H.Pylori s/p tx, PUD, PVD, HTN. HL, and CAD who presented with abd pain, nausea, and vomiting. Etiology of the pain is likely 2/2 ileus vs SBO vs severe constipation 1. Possible complete vs partial SBO 2. Colonic impaction 3. Acute on chronic constipation 3. Hx of incomplete bowel evacuation 4. Hx of H. Pylori s/p tx 5. Hx of dysphagia Plan: -NG NG tube as per surgical team -keep NPO -zofran sceduled -continue water enema q 4 hrs or until substantial relief - Dulcolax 10mg NH - Encourage ambulation - If NG is pulled by surgery, may attempt to start liquid diet - IV Pepcid for now then transition for PO PPI, once pt is able to take PO - Will nee to eventually start Bowel Regiment Will D/w Dr. Walter <Lewis Walter - Last Filed: 04/21/17 09:47> Meds - Medications Medications: Current Medications Atorvastatin Calcium (Lipitor) 40 mg PO DAILY [facility] Last Admin: 04/21/17 09:01 Dose: 40 mg Heparin Sodium (Porcine) (Heparin) 5,000 units SC Q12 [facility] PRN Reason: Protocol Last Admin: 04/21/17 09:01 Dose: 5,000 units Ceftriaxone Sodium (Rocephin 1 Gram Ivpb) 1 gm in 100 mls @ 100 mls/hr IVPB DAILY [facility] PRN Reason: Protocol Last Admin: 04/21/17 09:00 Dose: 100 mls/hr Potassium Chloride 40 meq/ (Sodium Chloride) 1,020 mls @ 100 mls/hr IV .[id number] [facility] Last Admin: 04/21/17 09:00 Dose: 100 mls/hr Ketorolac Tromethamine (Toradol) 30 mg IVP Q6 PRN PRN Reason: Nausea/Vomiting Last Admin: 04/21/17 03:35 Dose: 30 mg Metoprolol Succinate (Toprol Xl) 100 mg PO DAILY [facility] Last Admin: 04/21/17 09:05 Dose: 100 mg Ondansetron HCl (Zofran Inj) 4 mg IVP Q4H PRN PRN Reason: Nausea/Vomiting Last Admin: 04/21/17 03:35 Dose: 4 mg Pantoprazole Sodium (Protonix Inj) 40 mg IVP BID [facility] Last Admin: 04/21/17 09:01 Dose: 40 mg Results - Vital Signs Recent Vital Signs: Last Vital Signs Temp 98.1 F 04/21/17 07:30 Pulse 71 04/21/17 07:30 Resp 20 04/21/17 07:30 BP 177/91 H 04/21/17 09:05 Pulse Ox 98 04/21/17 07:30 - Labs Result Diagrams: 04/21/17 06:45 04/21/17 06:45 Labs: Laboratory Results - last 24 hr 04/20/17 04/21/17 04/21/17 06:00 06:45 06:45 WBC 8.6 RBC 4.10 Hgb 14.1 Hct 41.2 MCV 100.5 MCH 34.4 MCHC 34.2 RDW 12.4 Plt Count 231 MPV 9.1 Sodium 141 Potassium 5.4 H Chloride 106 Carbon Dioxide 27 Anion Gap 13 BUN 10 Creatinine 0.8 Est GFR ( Amer) > 60 Est GFR (Non-Af Amer) > 60 Random Glucose 130 H Hemoglobin A1c 5.5 Calcium 9.4 Magnesium 1.9 Total Bilirubin 0.8 AST 22 ALT 34 Alkaline Phosphatase 58 Total Protein 6.4 Albumin 3.9 Globulin 2.5 Albumin/Globulin Ratio 1.5 Attending/Attestation - Attestation I have personally seen and examined this patient.: Yes I have fully participated in the care of the patient.: Yes I have reviewed all pertinent clinical information: Yes Notes (Text): 04/21/17 09:39 I have seen and examined patient with GI fellow. Agree with above documentation with the following additions. In brief, this is a 77 year old female with history of HTN, hyperlipidemia, CAD who presented to hospital with complaint of sudden onset severe 10/10 intensity abdominal pain which began 2 days ago. Prior to this she was in usual state of health. She describes abdominal pain as diffuse and became worse following meal consumption. This was associated with multiple episodes of nausea and non-bloody emesis. She has a prior history of hysterectomy, no similar prior episodes. She typically has chronic constipation with once daily bowel movements with sensation of incomplete evacuation. She had an EGD/colonoscopy in March 2016 which showed diverticulosis, helicobacter pylori associated gastritis, and rectal non- adenomatous polyps. Additional physical examination: Abdomen: soft, hypoactive bowel sounds, no palpable hepato/splenomegaly HTN Hyperlipidemia CAD Sudden onset abdominal pain, NGT placed with 1.5 liters of bilious output suggestive of small bowel obstruction CT imaging reviewed by me showing fecal retention, dilated small bowel loops - NPO - Continue with IVF hydration therapy, pain control, supportive care - Continue with antibiotic therapy - Continue with NGT, monitor output and follow up surgical recommendations - Enema use for symptomatic relief - Will continue to monitor patient clinical course
[2017-04-21] MEDS ORDERED: Sod Polystyrene Sulf 15 gm/60 ml Susp PR ONE (08:56)
[2017-04-21] MEDS: cefTRIAXone 1 gm 1 GM/100 ML BAG IVPB SCH (09:00)
[2017-04-21] MEDS: Metoprolol Succinate 100 mg XL Tab PO SCH (09:05)
--- NOTE | 2017-04-21 09:32 | CP.PCM.PN ---
Subjective - Date & Time of Evaluation Date of Evaluation: 04/21/17 Time of Evaluation: 09:29 - Subjective Subjective: Surgery Progress Note for Dr. Hernandez HPI: Patient seen and examined at bedside. Still complaining of diffuse abdominal pain. Sore throat secondary to NGT. Passing gas. Ambulating. No other complaints at this time. Denies N/V/D/F/SOB Objective - Vital Signs/Intake and Output Vital Signs (last 24 hours): Temp Pulse Resp BP Pulse Ox 98.1 F 71 20 177/91 H 98 04/21/17 07:30 04/21/17 07:30 04/21/17 07:30 04/21/17 09:05 04/21/17 07:30 Intake and Output: 04/21/17 04/21/17 06:59 18:59 Intake Total 0 Output Total 502 Balance -502 - Medications Medications: Current Medications Atorvastatin Calcium (Lipitor) 40 mg PO DAILY [facility] Last Admin: 04/21/17 09:01 Dose: 40 mg Heparin Sodium (Porcine) (Heparin) 5,000 units SC Q12 [facility] PRN Reason: Protocol Last Admin: 04/21/17 09:01 Dose: 5,000 units Ceftriaxone Sodium (Rocephin 1 Gram Ivpb) 1 gm in 100 mls @ 100 mls/hr IVPB DAILY [facility] PRN Reason: Protocol Last Admin: 04/21/17 09:00 Dose: 100 mls/hr Potassium Chloride 40 meq/ (Sodium Chloride) 1,020 mls @ 100 mls/hr IV .[id number] [facility] Last Admin: 04/21/17 09:00 Dose: 100 mls/hr Ketorolac Tromethamine (Toradol) 30 mg IVP Q6 PRN PRN Reason: Nausea/Vomiting Last Admin: 04/21/17 03:35 Dose: 30 mg Metoprolol Succinate (Toprol Xl) 100 mg PO DAILY [facility] Last Admin: 04/21/17 09:05 Dose: 100 mg Ondansetron HCl (Zofran Inj) 4 mg IVP Q4H PRN PRN Reason: Nausea/Vomiting Last Admin: 04/21/17 03:35 Dose: 4 mg Pantoprazole Sodium (Protonix Inj) 40 mg IVP BID [facility] Last Admin: 04/21/17 09:01 Dose: 40 mg - Labs Labs: 04/21/17 06:45 04/21/17 06:45 PT 10.2 Seconds (9.9-11.8) 04/20/17 06:00 INR 0.94 (0.93-1.08) 04/20/17 06:00 APTT 24.5 Seconds (23.7-30.8) 04/20/17 06:00 - Constitutional Appears: Well, Non-toxic, No Acute Distress - Head Exam Head Exam: ATRAUMATIC, NORMAL INSPECTION, NORMOCEPHALIC - Eye Exam Eye Exam: EOMI Additional comments: NGT secured in place draining 1600 over 24hrs billious fluid - ENT Exam ENT Exam: Mucous Membranes Moist - Respiratory Exam Respiratory Exam: Clear to Ausculation Bilateral, NORMAL BREATHING PATTERN - Cardiovascular Exam Cardiovascular Exam: REGULAR RHYTHM - GI/Abdominal Exam GI & Abdominal Exam: Soft, Tenderness (moderate tenderness to palpation. belly softer than yesterday). absent: Distended, Firm - Extremities Exam Extremities Exam: absent: Joint Swelling, Tenderness - Back Exam Back Exam: absent: CVA tenderness (L), CVA tenderness (R) - Neurological Exam Neurological Exam: Alert, Awake, Oriented x3 - Psychiatric Exam Psychiatric exam: Normal Affect, Normal Mood - Skin Skin Exam: Dry, Intact, Normal Color, Warm Assessment and Plan - Assessment and Plan (Free Text) Assessment: 77F SBO Plan: * NGT * NPO * Ambulate * F/U CT abd/pelvis PO Contrast * Discussed w/ Dr. David Aldana PGY1
[2017-04-21] MEDS ORDERED: POLYETHYLENE GLYCOL 3350 17 GM/Dose PACKET PO SCH (10:00)
[2017-04-21] MEDS ORDERED: Barium Sulfate Susp 2.1% w/v, 2.0% w/w 450 mL Bottle PO ONE (10:08)
--- NOTE | 2017-04-21 13:04 | CP.PCM.PN ---
<Alesia Younger - Last Filed: 04/21/17 13:20> Subjective - Date & Time of Evaluation Date of Evaluation: 04/21/17 Time of Evaluation: 13:00 - Subjective Subjective: Hospitalist Service Progress Note: Patient seen and examined at bedside. Patient states that she is feeling a little better. Still having abdominal pain but denies nausea or vomiting. Passed flatus this morning. Reports NGT discomfort. Offers no other complaints at this time. Denies fevers, chills, headache, dizziness, cp, palpitations, sob , urinary symptoms. Objective - Vital Signs/Intake and Output Vital Signs (last 24 hours): Temp Pulse Resp BP Pulse Ox 98.1 F 71 20 177/91 H 98 04/21/17 07:30 04/21/17 07:30 04/21/17 07:30 04/21/17 09:05 04/21/17 07:30 Intake and Output: 04/21/17 04/21/17 06:59 18:59 Intake Total 0 Output Total 502 Balance -502 - Medications Medications: Current Medications Atorvastatin Calcium (Lipitor) 40 mg PO DAILY [facility] Last Admin: 04/21/17 09:01 Dose: 40 mg Heparin Sodium (Porcine) (Heparin) 5,000 units SC Q12 [facility] PRN Reason: Protocol Last Admin: 04/21/17 09:01 Dose: 5,000 units Ceftriaxone Sodium (Rocephin 1 Gram Ivpb) 1 gm in 100 mls @ 100 mls/hr IVPB DAILY [facility] PRN Reason: Protocol Last Admin: 04/21/17 09:00 Dose: 100 mls/hr Potassium Chloride 40 meq/ (Sodium Chloride) 1,020 mls @ 100 mls/hr IV .[id number] [facility] Last Admin: 04/21/17 09:00 Dose: 100 mls/hr Ketorolac Tromethamine (Toradol) 30 mg IVP Q6 PRN PRN Reason: Nausea/Vomiting Last Admin: 04/21/17 03:35 Dose: 30 mg Metoprolol Succinate (Toprol Xl) 100 mg PO DAILY [facility] Last Admin: 04/21/17 09:05 Dose: 100 mg Ondansetron HCl (Zofran Inj) 4 mg IVP Q4H PRN PRN Reason: Nausea/Vomiting Last Admin: 04/21/17 03:35 Dose: 4 mg Pantoprazole Sodium (Protonix Inj) 40 mg IVP BID [facility] Last Admin: 04/21/17 09:01 Dose: 40 mg - Labs Labs: 04/21/17 06:45 04/21/17 06:45 PT 10.2 Seconds (9.9-11.8) 04/20/17 06:00 INR 0.94 (0.93-1.08) 04/20/17 06:00 APTT 24.5 Seconds (23.7-30.8) 04/20/17 06:00 - Constitutional Appears: Non-toxic, No Acute Distress - Head Exam Head Exam: ATRAUMATIC, NORMAL INSPECTION - Eye Exam Eye Exam: EOMI, Normal appearance - ENT Exam ENT Exam: Mucous Membranes Moist Additional comments: NG tube in place - Neck Exam Neck Exam: Full ROM - Respiratory Exam Respiratory Exam: Clear to Ausculation Bilateral, NORMAL BREATHING PATTERN. absent: Rales, Rhonchi, Wheezes - Cardiovascular Exam Cardiovascular Exam: REGULAR RHYTHM, +S1, +S2 - GI/Abdominal Exam GI & Abdominal Exam: Guarding, Soft, Tenderness (Generalized). absent: Rigid, Rebound - Extremities Exam Extremities Exam: Full ROM, Normal Inspection. absent: Calf Tenderness, Pedal Edema - Back Exam Back Exam: NORMAL INSPECTION - Neurological Exam Neurological Exam: Alert, Awake, Oriented x3 - Psychiatric Exam Psychiatric exam: Normal Affect, Normal Mood - Skin Skin Exam: Normal Color, Warm Assessment and Plan - Assessment and Plan (Free Text) Assessment: 77 year old female with past medical history of HTN, peptic ulcer diease, peripheral vascular disease presents with small bowel obstruction Plan: 1. Small Bowel Obstruction - CT abdomen revealed dilated loops of pelvic and right lower quadrant loops of small bowel - Follow up repeat CT abd/pelvis with contrast - Diet NPO - Continue IVF - Zofran prn nausea - Water enema q4H, ducolax suppository - GI consulted; f/u recommendations - Surg consulted; f/u recommendations 2. Urinary Tract Infection - On Rochepin - F/U urine cx 3. Peptic Ulcer Disease - Continue Protonix 4. Hypertension - Metoprolol - Will add Vastotec prn 5. Peripheral Vascular Disease - Continue Aspirin 6. Dyslipidemia - Atorvastatin 7. Hyperkalemia - Potassium 5.4 today - S/P kayexylate - Will continue to monitor DVT/GI prophylaxis - Heparin/Protonix <Stephenson,Lesley Barnard - Last Filed: 04/22/17 18:13> Objective - Vital Signs/Intake and Output Vital Signs (last 24 hours): Temp Pulse Resp BP Pulse Ox 99.2 F 64 18 177/91 H 100 04/21/17 16:26 04/21/17 16:26 04/21/17 16:26 04/21/17 16:26 04/21/17 16:26 Intake and Output: 04/21/17 04/21/17 06:59 18:59 Intake Total 0 0 Output Total 502 1000 Balance -502 -1000 - Medications Medications: Current Medications Atorvastatin Calcium (Lipitor) 40 mg PO DAILY [facility] Last Admin: 04/21/17 09:01 Dose: 40 mg Heparin Sodium (Porcine) (Heparin) 5,000 units SC Q12 [facility] PRN Reason: Protocol Last Admin: 04/21/17 09:01 Dose: 5,000 units Hydralazine HCl (Apresoline) 10 mg IVP Q6 PRN PRN Reason: hypertension Ceftriaxone Sodium (Rocephin 1 Gram Ivpb) 1 gm in 100 mls @ 100 mls/hr IVPB DAILY [facility] PRN Reason: Protocol Last Admin: 04/21/17 09:00 Dose: 100 mls/hr Sodium Chloride (Sodium Chloride 0.9%) 1,000 mls @ 100 mls/hr IV .Q10H [facility] Last Admin: 04/21/17 13:24 Dose: 100 mls/hr Ketorolac Tromethamine (Toradol) 30 mg IVP Q6 PRN PRN Reason: Nausea/Vomiting Last Admin: 04/21/17 13:25 Dose: 30 mg Metoprolol Succinate (Toprol Xl) 100 mg PO DAILY [facility] Last Admin: 04/21/17 09:05 Dose: 100 mg Ondansetron HCl (Zofran Inj) 4 mg IVP Q4H PRN PRN Reason: Nausea/Vomiting Last Admin: 04/21/17 13:29 Dose: 4 mg Pantoprazole Sodium (Protonix Inj) 40 mg IVP BID [facility] Last Admin: 04/21/17 09:01 Dose: 40 mg - Labs Labs: 04/21/17 06:45 04/21/17 06:45 PT 10.2 Seconds (9.9-11.8) 04/20/17 06:00 INR 0.94 (0.93-1.08) 04/20/17 06:00 APTT 24.5 Seconds (23.7-30.8) 04/20/17 06:00 Attending/Attestation - Attestation I have personally seen and examined this patient.: Yes I have fully participated in the care of the patient.: Yes I have reviewed all pertinent clinical information, including history, physical exam and plan: Yes Notes (Text): I have seen and examined the patient at bedside. Agree with the above note with the following additions/ exceptions: Briefly this is 77 year old female with history of HTN, peptic ulcer disease, peripheral vascular disease presents with small bowel obstruction. She still complains of pain and tenderness in bilateral lower quadrants of abdomen. Abdomen is soft. GI and surgery on board. She remains NPO. Continue IVF, enema as per GI. Plan to repeat CT w contrast. Continue rocephin for UTI. Urine culture pending. BP is very high. Will start hydralazine prn. Upon discharge patient will follow up with Dr Greene. Dr Lesley Stephenson
[2017-04-21] MEDS ORDERED: EnalaprilAT 1.25 mg/ml Inj IVP PRN (13:07)
[2017-04-21] MEDS: Sodium Chloride 0.9% 1,000 ML IV SCH (13:24)
--- NOTE | 2017-04-21 15:04 | PN ---
DATE: 04/21/2017 SUBJECTIVE: The patient is seen to be afebrile. Blood pressure elevated at 180/90, 5 feet 7 inches, 110 pounds. She claims she has had multiple bowel movements, one recently, passing lots of gas. NG tube reportedly about 1600. Her abdomen is softer and nontender. There is a little bit of pain in the right lower quadrant. It is much better than yesterday. I believe this is real small-bowel obstruction and if it is not resolved, might need an operation, but presently she is improving. Carlos Alberto Hernandez MD
--- NOTE | 2017-04-21 17:51 | CT ---
CT abdomen and pelvis without IV contrast Indication: Rule out small bowel obstruction Technique: Contiguous axial images of the abdomen and pelvis. Oral contrast was administered. No IV contrast given. Coronal and Sagittal reformats generated and reviewed. This CT exam was performed using 1 or more of the following dose reduction techniques: Automated exposure control, adjustment of the MAA and/or kV according to patient size, and/or use of iterative reconstruction technique. Radiation dose: Total exam DLP = 212.02 mGy-cm. Comparison: CT of the abdomen and pelvis without oral or IV contrast performed 04/19/17 Findings: Bibasilar atelectasis. There is no visible pleural effusion or pneumothorax. The unenhanced liver, spleen, kidneys, pancreas, adrenal glands, and contracted gallbladder appear grossly unremarkable. Dilated fluid-filled loops of small bowel throughout the central abdomen ; transition point is not clearly identified. Interval development of abdominal and pelvic ascites. There is no definite free air. Dense atherosclerotic calcifications of the aorta and branches. Uterus is absent consistent with hysterectomy. The urinary bladder appears unremarkable. Degenerative changes. Impression: Interval increase in dilated fluid-filled loops of small bowel throughout the central abdomen ; transition point is not clearly identified. Interval development of abdominal and pelvic ascites. Appearance consistent with small bowel obstruction. Correlate clinically. Nasogastric tube extends to the stomach. Bibasilar atelectasis.
[2017-04-22 07:16] LABS: HEMATOCRIT 37.6 % (36.0-48.0); MEAN CELL VOLUME 100.5 fl (80.0-105.0); MEAN CORPUSCULAR HEMOGLOBIN 34.5 pg (25.0-35.0); MEAN CORPUSCULAR HGB CONC 34.3 g/dl (31.0-37.0); RED CELL DISTRIBUTION WIDTH 12.4 % (11.5-14.5); WHITE BLOOD COUNT 7.8 10^3/ul (4.5-11.0)
[2017-04-22 07:25] LABS: ALB/GLOB RATIO 1.4 (1.1-1.8); ALKALINE PHOSPHATASE 47 U/L (38-126); ALT/SGPT 30 U/L (7-56); AST/SGOT 20 U/L (14-36); BILIRUBIN,TOTAL 0.7 mg/dL (0.2-1.3); BLOOD UREA NITROGEN 11 mg/dL (7-21); CALCIUM 9.2 mg/dL (8.4-10.5); CARBON DIOXIDE 23 mmol/L (21-33); CHLORIDE 108 mmol/L (95-110); GFR AFRICAN-AMERICAN > 60; GLUCOSE,RANDOM 87 mg/dL (70-110); SODIUM 140 mmol/L (132-148); TOTAL PROTEIN 5.6 g/dL (5.8-8.3)
--- NOTE | 2017-04-22 08:54 | CP.PCM.PN ---
Subjective - Date & Time of Evaluation Date of Evaluation: 04/22/17 Time of Evaluation: 08:51 - Subjective Subjective: Surgery Progress Note for Dr. Hernandez HPI: Patient seen and examined at bedside. Doing well. Denies any nausea or vomiting. Still having belly pain that has not improved. Not passing gas or having BM. Objective - Vital Signs/Intake and Output Vital Signs (last 24 hours): Temp Pulse Resp BP Pulse Ox 98.8 F 73 18 142/71 99 04/22/17 07:30 04/22/17 07:30 04/22/17 07:30 04/22/17 07:30 04/22/17 07:30 Intake and Output: 04/22/17 04/22/17 06:59 18:59 Intake Total 0 Output Total 1100 Balance -1100 - Medications Medications: Current Medications Atorvastatin Calcium (Lipitor) 40 mg PO DAILY [facility] Last Admin: 04/21/17 09:01 Dose: 40 mg Heparin Sodium (Porcine) (Heparin) 5,000 units SC Q12 [facility] PRN Reason: Protocol Last Admin: 04/21/17 21:15 Dose: 5,000 units Hydralazine HCl (Apresoline) 10 mg IVP Q6 PRN PRN Reason: hypertension Ceftriaxone Sodium (Rocephin 1 Gram Ivpb) 1 gm in 100 mls @ 100 mls/hr IVPB DAILY [facility] PRN Reason: Protocol Last Admin: 04/21/17 09:00 Dose: 100 mls/hr Sodium Chloride (Sodium Chloride 0.9%) 1,000 mls @ 100 mls/hr IV .Q10H [facility] Last Admin: 04/21/17 13:24 Dose: 100 mls/hr Ketorolac Tromethamine (Toradol) 30 mg IVP Q6 PRN PRN Reason: Pain, severe (8-10) Ketorolac Tromethamine (Toradol) 15 mg IVP Q4 PRN PRN Reason: Pain, moderate (4-7) Metoprolol Succinate (Toprol Xl) 100 mg PO DAILY [facility] Last Admin: 04/21/17 09:05 Dose: 100 mg Ondansetron HCl (Zofran Inj) 4 mg IVP Q4H PRN PRN Reason: Nausea/Vomiting Last Admin: 04/21/17 13:29 Dose: 4 mg Pantoprazole Sodium (Protonix Inj) 40 mg IVP BID [facility] Last Admin: 04/21/17 18:07 Dose: 40 mg - Labs Labs: 04/22/17 07:10 04/22/17 07:10 PT 10.2 Seconds (9.9-11.8) 04/20/17 06:00 INR 0.94 (0.93-1.08) 04/20/17 06:00 APTT 24.5 Seconds (23.7-30.8) 04/20/17 06:00 - Constitutional Appears: Well, Non-toxic, No Acute Distress - Head Exam Head Exam: ATRAUMATIC, NORMAL INSPECTION, NORMOCEPHALIC - Eye Exam Eye Exam: EOMI Pupil Exam: NORMAL ACCOMODATION - ENT Exam ENT Exam: Mucous Membranes Moist - Respiratory Exam Respiratory Exam: Clear to Ausculation Bilateral, NORMAL BREATHING PATTERN - Cardiovascular Exam Cardiovascular Exam: REGULAR RHYTHM - GI/Abdominal Exam GI & Abdominal Exam: Soft, Tenderness (tenderness to palpation, moderate, more on the Left than the right. ). absent: Distended - Extremities Exam Extremities Exam: absent: Joint Swelling, Tenderness - Back Exam Back Exam: absent: CVA tenderness (L) - Neurological Exam Neurological Exam: Alert, Awake, Oriented x3 - Psychiatric Exam Psychiatric exam: Normal Affect, Normal Mood - Skin Skin Exam: Dry, Intact, Normal Color, Warm Assessment and Plan - Assessment and Plan (Free Text) Assessment: 77F SBO Plan: * Repeat CT yesterday shows worsening SBO * NPO * NGT * Further reccs per Dr. David Aldana PGY1
--- NOTE | 2017-04-22 09:20 | CP.PCM.PN ---
<Alesia Younger - Last Filed: 04/22/17 12:33> Subjective - Date & Time of Evaluation Date of Evaluation: 04/22/17 Time of Evaluation: 09:18 - Subjective Subjective: Hospitalist Service Progress Note: Patient seen and examined at bedside. Per nursing no acute events overnight. Still having abdominal pain, denies having nausea or vomiting currently but states she was gagging yesterday. Denies passing flatus or BM. Offers no other complaints at this time. Denies headache, dizziness, cp, palpitations, sob, urinary symptoms. Objective - Vital Signs/Intake and Output Vital Signs (last 24 hours): Temp Pulse Resp BP Pulse Ox 98.8 F 73 18 142/71 99 04/22/17 07:30 04/22/17 07:30 04/22/17 07:30 04/22/17 07:30 04/22/17 07:30 Intake and Output: 04/22/17 04/22/17 06:59 18:59 Intake Total 0 Output Total 1100 Balance -1100 - Medications Medications: Current Medications Atorvastatin Calcium (Lipitor) 40 mg PO DAILY [facility] Last Admin: 04/21/17 09:01 Dose: 40 mg Heparin Sodium (Porcine) (Heparin) 5,000 units SC Q12 [facility] PRN Reason: Protocol Last Admin: 04/21/17 21:15 Dose: 5,000 units Hydralazine HCl (Apresoline) 10 mg IVP Q6 PRN PRN Reason: hypertension Ceftriaxone Sodium (Rocephin 1 Gram Ivpb) 1 gm in 100 mls @ 100 mls/hr IVPB DAILY [facility] PRN Reason: Protocol Last Admin: 04/21/17 09:00 Dose: 100 mls/hr Sodium Chloride (Sodium Chloride 0.9%) 1,000 mls @ 100 mls/hr IV .Q10H [facility] Last Admin: 04/21/17 13:24 Dose: 100 mls/hr Ketorolac Tromethamine (Toradol) 30 mg IVP Q6 PRN PRN Reason: Pain, severe (8-10) Ketorolac Tromethamine (Toradol) 15 mg IVP Q4 PRN PRN Reason: Pain, moderate (4-7) Metoprolol Succinate (Toprol Xl) 100 mg PO DAILY [facility] Last Admin: 04/21/17 09:05 Dose: 100 mg Ondansetron HCl (Zofran Inj) 4 mg IVP Q4H PRN PRN Reason: Nausea/Vomiting Last Admin: 04/21/17 13:29 Dose: 4 mg Pantoprazole Sodium (Protonix Inj) 40 mg IVP BID [facility] Last Admin: 04/21/17 18:07 Dose: 40 mg - Labs Labs: 04/22/17 07:10 04/22/17 07:10 PT 10.2 Seconds (9.9-11.8) 04/20/17 06:00 INR 0.94 (0.93-1.08) 04/20/17 06:00 APTT 24.5 Seconds (23.7-30.8) 04/20/17 06:00 - Constitutional Appears: Non-toxic, No Acute Distress - Head Exam Head Exam: ATRAUMATIC, NORMAL INSPECTION - Eye Exam Eye Exam: EOMI, Normal appearance - ENT Exam ENT Exam: Mucous Membranes Moist - Neck Exam Neck Exam: Full ROM - Respiratory Exam Respiratory Exam: Clear to Ausculation Bilateral, NORMAL BREATHING PATTERN. absent: Rales, Rhonchi, Wheezes - Cardiovascular Exam Cardiovascular Exam: REGULAR RHYTHM, +S1, +S2 - GI/Abdominal Exam GI & Abdominal Exam: Guarding, Soft, Tenderness. absent: Rigid, Rebound Additional comments: Diffuse abdominal tenderness to palpation - Extremities Exam Extremities Exam: Normal Inspection. absent: Calf Tenderness - Back Exam Back Exam: NORMAL INSPECTION - Neurological Exam Neurological Exam: Alert, Awake, Oriented x3 - Psychiatric Exam Psychiatric exam: Normal Affect, Normal Mood - Skin Skin Exam: Normal Color, Warm Assessment and Plan - Assessment and Plan (Free Text) Assessment: 77 year old female with past medical history of HTN, peptic ulcer diease, peripheral vascular disease presents with small bowel obstruction Plan: 1. Small Bowel Obstruction - CT abdomen revealed dilated loops of pelvic and right lower quadrant loops of small bowel - Repeat CT with contrast showing interval increase in dilated fluid filled loops of small bowel (see full report) - Diet NPO - Continue IVF - Zofran prn nausea - Toradol prn pain - Enema per GI recs - Likely will go for surgery today - GI consulted; f/u recommendations - Surg consulted; f/u recommendations 2. Urinary Tract Infection - Continue Rochepin - Urine cx showing possible contaminant - Repeat Urine cx 3. Peptic Ulcer Disease - Continue Protonix 4. Hypertension - Metoprolol 100mg daily - Hydralazine 10mg Q6H prn 5. Peripheral Vascular Disease - Continue Aspirin 6. Dyslipidemia - Atorvastatin 40 mg daily 7. Hyperkalemia - Potassium 4.0 today - Will continue to monitor DVT/GI prophylaxis - Heparin/Protonix <Lesley Stephenson - Last Filed: 04/22/17 18:25> Objective - Vital Signs/Intake and Output Vital Signs (last 24 hours): Temp Pulse Resp BP Pulse Ox 97.9 F 72 20 167/89 H 97 04/22/17 16:25 04/22/17 16:25 04/22/17 16:25 04/22/17 16:25 04/22/17 16:25 Intake and Output: 04/22/17 04/22/17 06:59 18:59 Intake Total 0 0 Output Total 1100 Balance -1100 0 - Medications Medications: Current Medications Atorvastatin Calcium (Lipitor) 40 mg PO DAILY [facility] Last Admin: 04/22/17 13:21 Dose: Not Given Fentanyl (Fentanyl) 25 mcg IV Q5M PRN PRN Reason: Pain, moderate (4-7) Heparin Sodium (Porcine) (Heparin) 5,000 units SC Q12 [facility] PRN Reason: Protocol Last Admin: 04/21/17 21:15 Dose: 5,000 units Hydralazine HCl (Apresoline) 10 mg IVP Q6 PRN PRN Reason: hypertension Ceftriaxone Sodium (Rocephin 1 Gram Ivpb) 1 gm in 100 mls @ 100 mls/hr IVPB DAILY [facility] PRN Reason: Protocol Last Admin: 04/22/17 13:22 Dose: Not Given Sodium Chloride (Sodium Chloride 0.9%) 1,000 mls @ 100 mls/hr IV .Q10H [facility] Last Admin: 04/22/17 16:35 Dose: 100 mls/hr Ketorolac Tromethamine (Toradol) 30 mg IVP Q6 PRN PRN Reason: Pain, severe (8-10) Ketorolac Tromethamine (Toradol) 15 mg IVP Q4 PRN PRN Reason: Pain, moderate (4-7) Metoprolol Succinate (Toprol Xl) 100 mg PO DAILY [facility] Last Admin: 04/22/17 13:23 Dose: Not Given Morphine Sulfate (Morphine) 2 mg IVP Q15M PRN PRN Reason: Pain, moderate (4-7) Last Admin: 04/22/17 15:15 Dose: 2 mg Ondansetron HCl (Zofran Inj) 4 mg IVP Q4H PRN PRN Reason: Nausea/Vomiting Last Admin: 04/21/17 13:29 Dose: 4 mg Ondansetron HCl (Zofran Inj) 4 mg IVP ONCE PRN PRN Reason: Nausea/Vomiting Pantoprazole Sodium (Protonix Inj) 40 mg IVP BID [facility] Last Admin: 04/22/17 13:22 Dose: Not Given - Labs Labs: 04/22/17 07:10 04/22/17 07:10 PT 10.2 Seconds (9.9-11.8) 04/20/17 06:00 INR 0.94 (0.93-1.08) 04/20/17 06:00 APTT 24.5 Seconds (23.7-30.8) 04/20/17 06:00 Attending/Attestation - Attestation I have personally seen and examined this patient.: Yes I have fully participated in the care of the patient.: Yes I have reviewed all pertinent clinical information, including history, physical exam and plan: Yes Notes (Text): I have seen and examined the patient at bedside. Agree with the above note with the following additions/ exceptions: Briefly this is 77 year old female with history of HTN, peptic ulcer disease, peripheral vascular disease who was admitted with small bowel obstruction. She still complains of pain and tenderness in bilateral lower quadrants of abdomen. GI and surgery on board. She remains NPO. Repeat CT findings were noted. She did not have any BM or flatus. Patient will go to OR today. Continue IV hydration, analgesics and NGT decompression. Will repeat urine culture. Will continue hydralazine prn. Upon discharge patient will follow up with Dr Greene. Dr Lesley Stephenson
--- NOTE | 2017-04-22 11:43 | CP.PCM.PN ---
<Caitlyn Hart - Last Filed: 04/22/17 11:43> Subjective - Date & Time of Evaluation Date of Evaluation: 04/22/17 Time of Evaluation: 07:00 - Subjective Subjective: PGY4 GI Follow-up Pt seen and examined bedside still has abd pain denies any flatus since yesterday denies any BM still NPO NG oupt slowing down ROS: 10 point ROS conducted, neg other than above Objective - Vital Signs/Intake and Output Vital Signs (last 24 hours): Temp Pulse Resp BP Pulse Ox 98.5 F 69 18 153/73 H 99 04/22/17 11:15 04/22/17 11:15 04/22/17 11:15 04/22/17 11:15 04/22/17 11:15 Intake and Output: 04/22/17 04/22/17 06:59 18:59 Intake Total 0 Output Total 1100 Balance -1100 - Medications Medications: Current Medications Atorvastatin Calcium (Lipitor) 40 mg PO DAILY [facility] Last Admin: 04/21/17 09:01 Dose: 40 mg Heparin Sodium (Porcine) (Heparin) 5,000 units SC Q12 [facility]ALU[facility] PRN Reason: Protocol Last Admin: 04/21/17 21:15 Dose: 5,000 units Hydralazine HCl (Apresoline) 10 mg IVP Q6 PRN PRN Reason: hypertension Ceftriaxone Sodium (Rocephin 1 Gram Ivpb) 1 gm in 100 mls @ 100 mls/hr IVPB DAILY [facility] PRN Reason: Protocol Last Admin: 04/21/17 09:00 Dose: 100 mls/hr Sodium Chloride (Sodium Chloride 0.9%) 1,000 mls @ 100 mls/hr IV .Q10H [facility] Last Admin: 04/21/17 13:24 Dose: 100 mls/hr Ketorolac Tromethamine (Toradol) 30 mg IVP Q6 PRN PRN Reason: Pain, severe (8-10) Ketorolac Tromethamine (Toradol) 15 mg IVP Q4 PRN PRN Reason: Pain, moderate (4-7) Metoprolol Succinate (Toprol Xl) 100 mg PO DAILY [facility] Last Admin: 04/21/17 09:05 Dose: 100 mg Ondansetron HCl (Zofran Inj) 4 mg IVP Q4H PRN PRN Reason: Nausea/Vomiting Last Admin: 04/21/17 13:29 Dose: 4 mg Pantoprazole Sodium (Protonix Inj) 40 mg IVP BID [facility] Last Admin: 04/21/17 18:07 Dose: 40 mg - Labs Labs: 04/22/17 07:10 04/22/17 07:10 PT 10.2 Seconds (9.9-11.8) 04/20/17 06:00 INR 0.94 (0.93-1.08) 04/20/17 06:00 APTT 24.5 Seconds (23.7-30.8) 04/20/17 06:00 - Constitutional Appears: Non-toxic, No Acute Distress - Head Exam Head Exam: ATRAUMATIC, NORMOCEPHALIC - Eye Exam Eye Exam: Normal appearance - ENT Exam ENT Exam: Mucous Membranes Moist, Normal Exam Additional comments: + NG tube, right nostril - Respiratory Exam Respiratory Exam: Clear to Ausculation Bilateral, NORMAL BREATHING PATTERN. absent: Chest Wall Tenderness, Decreased Breath Sounds, Rales, Rhonchi, Wheezes - Cardiovascular Exam Cardiovascular Exam: REGULAR RHYTHM, +S1, +S2 - GI/Abdominal Exam GI & Abdominal Exam: Soft, Tenderness, Hypoactive Bowel Sounds, Normal Bowel Sounds. absent: Firm, Guarding, Rigid Additional comments: lower quadrants B/L - Extremities Exam Extremities Exam: absent: Joint Swelling, Pedal Edema - Neurological Exam Neurological Exam: Alert, Awake, Oriented x3 - Psychiatric Exam Psychiatric exam: Normal Affect, Normal Mood - Skin Skin Exam: Dry, Intact, Normal Color, Warm Assessment and Plan - Assessment and Plan (Free Text) Assessment: Delbert De Leon is a 77 F w/ hx of H.Pylori s/p tx, PUD, PVD, HTN. HL, and CAD who presented with abd pain, nausea, and vomiting. Etiology of the pain is likely 2/2 ileus vs SBO vs severe constipation 1. SBO 2. Colonic impaction 3. Acute on chronic constipation 3. Hx of incomplete bowel evacuation 4. Hx of H. Pylori s/p tx 5. Hx of dysphagia Plan: -going to the OR today, for SBO -zofran scheduled -follow surg recommendations, post op -can continue H2 or PPI for Gi px -will sign off Will D/w Dr. Rodriguez <Pablito Rodriguez - Last Filed: 04/22/17 12:35> Objective - Vital Signs/Intake and Output Vital Signs (last 24 hours): Temp Pulse Resp BP Pulse Ox 98.5 F 69 18 153/73 H 99 04/22/17 11:15 04/22/17 11:15 04/22/17 11:15 04/22/17 11:15 04/22/17 11:15 Intake and Output: 04/22/17 04/22/17 06:59 18:59 Intake Total 0 Output Total 1100 Balance -1100 - Medications Medications: Current Medications Atorvastatin Calcium (Lipitor) 40 mg PO DAILY [facility] Last Admin: 04/21/17 09:01 Dose: 40 mg Heparin Sodium (Porcine) (Heparin) 5,000 units SC Q12 [facility] PRN Reason: Protocol Last Admin: 04/21/17 21:15 Dose: 5,000 units Hydralazine HCl (Apresoline) 10 mg IVP Q6 PRN PRN Reason: hypertension Ceftriaxone Sodium (Rocephin 1 Gram Ivpb) 1 gm in 100 mls @ 100 mls/hr IVPB DAILY [facility] PRN Reason: Protocol Last Admin: 04/21/17 09:00 Dose: 100 mls/hr Sodium Chloride (Sodium Chloride 0.9%) 1,000 mls @ 100 mls/hr IV .Q10H [facility] Last Admin: 04/21/17 13:24 Dose: 100 mls/hr Ketorolac Tromethamine (Toradol) 30 mg IVP Q6 PRN PRN Reason: Pain, severe (8-10) Ketorolac Tromethamine (Toradol) 15 mg IVP Q4 PRN PRN Reason: Pain, moderate (4-7) Metoprolol Succinate (Toprol Xl) 100 mg PO DAILY [facility] Last Admin: 04/21/17 09:05 Dose: 100 mg Ondansetron HCl (Zofran Inj) 4 mg IVP Q4H PRN PRN Reason: Nausea/Vomiting Last Admin: 04/21/17 13:29 Dose: 4 mg Pantoprazole Sodium (Protonix Inj) 40 mg IVP BID [facility] Last Admin: 04/21/17 18:07 Dose: 40 mg - Labs Labs: 04/22/17 07:10 04/22/17 07:10 PT 10.2 Seconds (9.9-11.8) 04/20/17 06:00 INR 0.94 (0.93-1.08) 04/20/17 06:00 APTT 24.5 Seconds (23.7-30.8) 04/20/17 06:00 Attending/Attestation - Attestation I have personally seen and examined this patient.: Yes I have fully participated in the care of the patient.: Yes I have reviewed all pertinent clinical information, including history, physical exam and plan: Yes Notes (Text): 04/22/17 12:34 77 year old female with h/o HTN, HLD, CAD, PVD, PUD, H pylori s/p therapy admitted with small bowel obstruction. 1. Small bowel obstruction Plan: -did not resolve with conservative therapy -agree with plan to go to OR -await OR findings -supportive care with hydration / pain control / NG decompression in the interim
[2017-04-22] MEDS ORDERED: Bupivacaine 0.5% Inj(30mL) ONE (12:23)
[2017-04-22] MEDS ORDERED: cefTRIAXone (Rocephin) 1 gm Inj ONE (12:44)
[2017-04-22] MEDS ORDERED: Midazolam 2 MG/2 ML VIAL ONE (13:00)
[2017-04-22] MEDS ORDERED: Propofol 10 mg/ml Inj (20 ML) ONE (13:00)
[2017-04-22] MEDS: cefTRIAXone 1 gm 1 GM/100 ML BAG IVPB SCH (13:22)
[2017-04-22] MEDS: Metoprolol Succinate 100 mg XL Tab PO SCH (13:23)
[2017-04-22] MEDS ORDERED: Morphine 4 mg/ml ISec ONE (13:36)
[2017-04-22] MEDS ORDERED: Glycopyrrolate 0.2 mg/ml (2ml vial) ONE (13:58)
[2017-04-22] MEDS ORDERED: Neostigmine Methylsulfate 3mg/3ml Syringe IV ONE (14:20)
[2017-04-22] MEDS ORDERED: Labetalol 5 mg/ml Inj 20ML IV ONE (14:25)
--- NOTE | 2017-04-22 14:26 | PCM.SURG1 ---
Surgeon's Initial Post Op Note - Surgeon's Notes Surgeon: Dr. Hernandez Director Of Digital Platforms: Homero PGY2, Christie PGY1, Jovan PGY1, Aram SIERRA Type of Anesthesia: General Endo Anesthesia Administered By: Dr. Ace Pre-Operative Diagnosis: SBO Operative Findings: internal hernia(see operative report) Post-Operative Diagnosis: SBO Operation Performed: Exploratory Laparotomy, lysis of adhesions, internal hernia reduction, and appendectomy Specimen/Specimens Removed: Appendix Estimated Blood Loss: EBL {In ML}: 25 Blood Products Given: N/A Drains Used: No Drains Post-Op Condition: Good Date of Surgery/Procedure: 04/22/17 Time of Surgery/Procedure: 13:30
[2017-04-22] MEDS ORDERED: Lactated Ringer's 1,000 ML IV SCH (14:30)
[2017-04-22] MEDS ORDERED: Morphine 2 mg/ml ISec IVP ONE (14:45)
[2017-04-22] MEDS ORDERED: Morphine 2 mg/ml ISec ONE (15:14)
[2017-04-22] MEDS: Morphine 2 mg/ml ISec IVP PRN ×2 (15:15→19:14)
[2017-04-22] MEDS: Sodium Chloride 0.9% 1,000 ML IV SCH (16:35)
[2017-04-23] MEDS: Sodium Chloride 0.9% 1,000 ML IV SCH ×3 (02:42→21:46)
[2017-04-23 07:14] LABS: HEMATOCRIT 33.9 % (36.0-48.0); MEAN CELL VOLUME 102.4 fl (80.0-105.0); MEAN CORPUSCULAR HEMOGLOBIN 34.7 pg (25.0-35.0); MEAN CORPUSCULAR HGB CONC 33.9 g/dl (31.0-37.0); RED CELL DISTRIBUTION WIDTH 12.4 % (11.5-14.5); WHITE BLOOD COUNT 7.5 10^3/ul (4.5-11.0)
[2017-04-23 07:43] LABS: ALB/GLOB RATIO 1.2 (1.1-1.8); ALKALINE PHOSPHATASE 37 U/L (38-126); ALT/SGPT 24 U/L (7-56); AST/SGOT 19 U/L (14-36); BILIRUBIN,TOTAL 0.5 mg/dL (0.2-1.3); BLOOD UREA NITROGEN 10 mg/dL (7-21); CALCIUM 8.7 mg/dL (8.4-10.5); CARBON DIOXIDE 20 mmol/L (21-33); CHLORIDE 111 mmol/L (98-107); GFR AFRICAN-AMERICAN > 60; GLUCOSE,RANDOM 68 mg/dL (70-110); MAGNESIUM 1.8 mg/dL (1.7-2.2); PHOSPHOROUS 3.2 mg/dL (2.5-4.5); POTASSIUM 4.1 mmol/L (3.6-5.0); SODIUM 143 mmol/L (132-148); TOTAL PROTEIN 5.1 g/dL (5.8-8.3)
--- NOTE | 2017-04-23 07:59 | CP.PCM.PN ---
Subjective - Date & Time of Evaluation Date of Evaluation: 04/23/17 Time of Evaluation: 06:50 - Subjective Subjective: Surgery note for Dr. Freeman 77F seen and examined at bedside. Patient states pain is much more improved. Denies nausea, vomiting, denies Bowel movement and flatus. Objective - Vital Signs/Intake and Output Vital Signs (last 24 hours): Temp Pulse Resp BP Pulse Ox 97.9 F 72 20 167/89 H 97 04/22/17 16:25 04/22/17 16:25 04/22/17 16:25 04/22/17 16:25 04/22/17 16:25 Intake and Output: 04/23/17 04/23/17 06:59 18:59 Intake Total 1200 Balance 1200 - Medications Medications: Current Medications Atorvastatin Calcium (Lipitor) 40 mg PO DAILY [facility] Last Admin: 04/22/17 13:21 Dose: Not Given Fentanyl (Fentanyl) 25 mcg IV Q5M PRN PRN Reason: Pain, moderate (4-7) Heparin Sodium (Porcine) (Heparin) 5,000 units SC Q12 [facility] PRN Reason: Protocol Last Admin: 04/22/17 22:01 Dose: 5,000 units Hydralazine HCl (Apresoline) 10 mg IVP Q6 PRN PRN Reason: hypertension Ceftriaxone Sodium (Rocephin 1 Gram Ivpb) 1 gm in 100 mls @ 100 mls/hr IVPB DAILY [facility] PRN Reason: Protocol Last Admin: 04/22/17 13:22 Dose: Not Given Sodium Chloride (Sodium Chloride 0.9%) 1,000 mls @ 100 mls/hr IV .Q10H [facility] Last Admin: 04/23/17 02:42 Dose: 100 mls/hr Ketorolac Tromethamine (Toradol) 30 mg IVP Q6 PRN PRN Reason: Pain, severe (8-10) Ketorolac Tromethamine (Toradol) 15 mg IVP Q4 PRN PRN Reason: Pain, moderate (4-7) Last Admin: 04/23/17 00:15 Dose: 15 mg Metoprolol Succinate (Toprol Xl) 100 mg PO DAILY [facility] Last Admin: 04/22/17 13:23 Dose: Not Given Morphine Sulfate (Morphine) 2 mg IVP Q15M PRN PRN Reason: Pain, moderate (4-7) Last Admin: 04/22/17 19:14 Dose: 2 mg Ondansetron HCl (Zofran Inj) 4 mg IVP Q4H PRN PRN Reason: Nausea/Vomiting Last Admin: 04/21/17 13:29 Dose: 4 mg Ondansetron HCl (Zofran Inj) 4 mg IVP ONCE PRN PRN Reason: Nausea/Vomiting Pantoprazole Sodium (Protonix Inj) 40 mg IVP BID [facility] Last Admin: 04/22/17 19:34 Dose: 40 mg - Labs Labs: 04/23/17 07:09 04/23/17 07:09 PT 10.2 Seconds (9.9-11.8) 04/20/17 06:00 INR 0.94 (0.93-1.08) 04/20/17 06:00 APTT 24.5 Seconds (23.7-30.8) 04/20/17 06:00 - Constitutional Appears: No Acute Distress - Respiratory Exam Respiratory Exam: Clear to Ausculation Bilateral, NORMAL BREATHING PATTERN - Cardiovascular Exam Cardiovascular Exam: REGULAR RHYTHM, +S1, +S2 - GI/Abdominal Exam GI & Abdominal Exam: Soft, Tenderness. absent: Distended, Firm, Guarding, Rigid , Rebound Additional comments: incision CDI - Neurological Exam Neurological Exam: Alert, Awake - Skin Skin Exam: Dry, Intact, Normal Color, Warm Assessment and Plan - Assessment and Plan (Free Text) Assessment: 77F s/p ex-laparotomy, reduction of internal hernia, lysis of adhesion, appendectomy POD1 Plan: - Continue to monitor for bowel function - pain control - monitor NG tube output - encourage ambulation - incentive spirometer GI/DVT ppx Further recs discuss with Dr. David Valentin, PGY2
--- NOTE | 2017-04-23 09:18 | CP.PCM.PN ---
<Caitlyn Hart - Last Filed: 04/23/17 09:21> Subjective - Date & Time of Evaluation Date of Evaluation: 04/23/17 Time of Evaluation: 07:00 - Subjective Subjective: PGY4 GI Follow-up Pt seen and examined bedside S/P OR Denies any abd pain still NPO NG still in place ROS: 10 point ROS conducted, neg other than above Objective - Vital Signs/Intake and Output Vital Signs (last 24 hours): Temp Pulse Resp BP Pulse Ox 98.6 F 66 20 116/56 L 96 04/23/17 08:00 04/23/17 08:00 04/23/17 08:00 04/23/17 08:00 04/23/17 08:00 Intake and Output: 04/23/17 04/23/17 06:59 18:59 Intake Total 1200 Balance 1200 - Medications Medications: Current Medications Atorvastatin Calcium (Lipitor) 40 mg PO DAILY [facility] Last Admin: 04/22/17 13:21 Dose: Not Given Heparin Sodium (Porcine) (Heparin) 5,000 units SC Q12 [facility] PRN Reason: Protocol Last Admin: 04/22/17 22:01 Dose: 5,000 units Hydralazine HCl (Apresoline) 10 mg IVP Q6 PRN PRN Reason: hypertension Ceftriaxone Sodium (Rocephin 1 Gram Ivpb) 1 gm in 100 mls @ 100 mls/hr IVPB DAILY [facility] PRN Reason: Protocol Last Admin: 04/22/17 13:22 Dose: Not Given Sodium Chloride (Sodium Chloride 0.9%) 1,000 mls @ 100 mls/hr IV .Q10H [facility] Last Admin: 04/23/17 02:42 Dose: 100 mls/hr Ketorolac Tromethamine (Toradol) 30 mg IVP Q6 PRN PRN Reason: Pain, severe (8-10) Ketorolac Tromethamine (Toradol) 15 mg IVP Q4 PRN PRN Reason: Pain, moderate (4-7) Last Admin: 04/23/17 00:15 Dose: 15 mg Metoprolol Succinate (Toprol Xl) 100 mg PO DAILY [facility] Last Admin: 04/22/17 13:23 Dose: Not Given Morphine Sulfate (Morphine) 2 mg IVP Q15M PRN PRN Reason: Pain, moderate (4-7) Last Admin: 04/22/17 19:14 Dose: 2 mg Ondansetron HCl (Zofran Inj) 4 mg IVP Q4H PRN PRN Reason: Nausea/Vomiting Last Admin: 04/21/17 13:29 Dose: 4 mg Ondansetron HCl (Zofran Inj) 4 mg IVP ONCE PRN PRN Reason: Nausea/Vomiting Pantoprazole Sodium (Protonix Inj) 40 mg IVP BID [facility] Last Admin: 04/22/17 19:34 Dose: 40 mg - Labs Labs: 04/23/17 07:09 04/23/17 07:09 PT 10.2 Seconds (9.9-11.8) 04/20/17 06:00 INR 0.94 (0.93-1.08) 04/20/17 06:00 APTT 24.5 Seconds (23.7-30.8) 04/20/17 06:00 - Constitutional Appears: Well, No Acute Distress - Head Exam Head Exam: ATRAUMATIC, NORMOCEPHALIC - Eye Exam Eye Exam: Normal appearance - ENT Exam ENT Exam: Mucous Membranes Moist, Normal Exam - Respiratory Exam Respiratory Exam: Clear to Ausculation Bilateral, NORMAL BREATHING PATTERN. absent: Rales, Rhonchi, Wheezes, Respiratory Distress - Cardiovascular Exam Cardiovascular Exam: REGULAR RHYTHM, +S1, +S2 - GI/Abdominal Exam GI & Abdominal Exam: Soft, Hypoactive Bowel Sounds. absent: Guarding, Rigid, Tenderness, Organomegaly Additional comments: midline incision, bandaged - Psychiatric Exam Psychiatric exam: Normal Affect, Normal Mood - Skin Skin Exam: Dry, Intact, Normal Color, Warm Assessment and Plan - Assessment and Plan (Free Text) Assessment: Delbert De Leon is a 77 F w/ hx of H.Pylori s/p tx, PUD, PVD, HTN. HL, and CAD who presented with abd pain, nausea, and vomiting. Etiology of the pain is likely 2/2 SBO 1. SBO, s/p ex lap, adhesion lysis, internal hernia reduction 2. Chronic constipation 3. Hx of incomplete bowel evacuation 4. Hx of H. Pylori s/p tx 5. Hx of dysphagia Plan: -follow surg recommendations, post op -upon discharge recommend daily miralax for constipation - NG tube management as per surgery -can continue H2 or PPI for Gi px -will sign off D/W Dr. Zuñiga <Jaya Zuñiga MD - Last Filed: 04/23/17 10:12> Objective - Vital Signs/Intake and Output Vital Signs (last 24 hours): Temp Pulse Resp BP Pulse Ox 98.6 F 66 20 116/56 L 96 04/23/17 08:00 04/23/17 08:00 04/23/17 08:00 04/23/17 08:00 04/23/17 08:00 Intake and Output: 04/23/17 04/23/17 06:59 18:59 Intake Total 1200 Balance 1200 - Medications Medications: Current Medications Atorvastatin Calcium (Lipitor) 40 mg PO DAILY [facility] Last Admin: 04/22/17 13:21 Dose: Not Given Heparin Sodium (Porcine) (Heparin) 5,000 units SC Q12 [facility] PRN Reason: Protocol Last Admin: 04/22/17 22:01 Dose: 5,000 units Hydralazine HCl (Apresoline) 10 mg IVP Q6 PRN PRN Reason: hypertension Ceftriaxone Sodium (Rocephin 1 Gram Ivpb) 1 gm in 100 mls @ 100 mls/hr IVPB DAILY [facility] PRN Reason: Protocol Last Admin: 04/22/17 13:22 Dose: Not Given Sodium Chloride (Sodium Chloride 0.9%) 1,000 mls @ 100 mls/hr IV .Q10H [facility] Last Admin: 04/23/17 02:42 Dose: 100 mls/hr Ketorolac Tromethamine (Toradol) 30 mg IVP Q6 PRN PRN Reason: Pain, severe (8-10) Ketorolac Tromethamine (Toradol) 15 mg IVP Q4 PRN PRN Reason: Pain, moderate (4-7) Last Admin: 04/23/17 00:15 Dose: 15 mg Metoprolol Succinate (Toprol Xl) 100 mg PO DAILY [facility] Last Admin: 04/22/17 13:23 Dose: Not Given Morphine Sulfate (Morphine) 2 mg IVP Q15M PRN PRN Reason: Pain, moderate (4-7) Last Admin: 04/22/17 19:14 Dose: 2 mg Ondansetron HCl (Zofran Inj) 4 mg IVP Q4H PRN PRN Reason: Nausea/Vomiting Last Admin: 04/21/17 13:29 Dose: 4 mg Ondansetron HCl (Zofran Inj) 4 mg IVP ONCE PRN PRN Reason: Nausea/Vomiting Pantoprazole Sodium (Protonix Inj) 40 mg IVP BID [facility] Last Admin: 04/22/17 19:34 Dose: 40 mg - Labs Labs: 04/23/17 07:09 04/23/17 07:09 PT 10.2 Seconds (9.9-11.8) 04/20/17 06:00 INR 0.94 (0.93-1.08) 04/20/17 06:00 APTT 24.5 Seconds (23.7-30.8) 04/20/17 06:00 Attending/Attestation - Attestation I have personally seen and examined this patient.: Yes I have fully participated in the care of the patient.: Yes I have reviewed all pertinent clinical information, including history, physical exam and plan: Yes Notes (Text): 04/23/17 10:02 Patient seen with GI fellow on am rounds. Agree with plan. This is a 77 year old female with h/o HTN, HLD, CAD, PVD, PUD, H pylori s/p therapy admitted with small bowel obstruction s/p ex lap and adhesion lysis and hernia repair. Still with NGT with no output. No flatus yet. Rest of plan as per surgery. Will sign off now. Thank you for letting us participate in the care of your patient
[2017-04-23] MEDS: cefTRIAXone 1 gm 1 GM/100 ML BAG IVPB SCH (10:20)
[2017-04-23] MEDS: Metoprolol Succinate 100 mg XL Tab PO SCH (12:43)
--- NOTE | 2017-04-23 13:41 | CP.PCM.PN ---
<Alesia Younger - Last Filed: 04/23/17 13:48> Subjective - Date & Time of Evaluation Date of Evaluation: 04/23/17 Time of Evaluation: 13:39 - Subjective Subjective: Hospitalist Service Progress Note: Patient seen and examined at bedside. Per nursing no acute events overnights. Patient is doing well, pain is controlled. Tolerating ice chips. Denies passing flatus or BM. ISS at the bedside. Denies headaches, dizziness, cp, palpitations , sob, urinary symptom. Objective - Vital Signs/Intake and Output Vital Signs (last 24 hours): Temp Pulse Resp BP Pulse Ox 98.6 F 66 20 116/56 L 96 04/23/17 08:00 04/23/17 08:00 04/23/17 08:00 04/23/17 08:00 04/23/17 08:00 Intake and Output: 04/23/17 04/23/17 06:59 18:59 Intake Total 1200 Balance 1200 - Medications Medications: Current Medications Atorvastatin Calcium (Lipitor) 40 mg PO DAILY [facility] Last Admin: 04/23/17 10:31 Dose: 40 mg Heparin Sodium (Porcine) (Heparin) 5,000 units SC Q12 [facility] PRN Reason: Protocol Last Admin: 04/23/17 10:21 Dose: 5,000 units Hydralazine HCl (Apresoline) 10 mg IVP Q6 PRN PRN Reason: hypertension Ceftriaxone Sodium (Rocephin 1 Gram Ivpb) 1 gm in 100 mls @ 100 mls/hr IVPB DAILY [facility] PRN Reason: Protocol Last Admin: 04/23/17 10:20 Dose: 100 mls/hr Sodium Chloride (Sodium Chloride 0.9%) 1,000 mls @ 100 mls/hr IV .Q10H [facility] Last Admin: 04/23/17 12:47 Dose: 100 mls/hr Ketorolac Tromethamine (Toradol) 30 mg IVP Q6 PRN PRN Reason: Pain, severe (8-10) Last Admin: 04/23/17 10:22 Dose: 30 mg Ketorolac Tromethamine (Toradol) 15 mg IVP Q4 PRN PRN Reason: Pain, moderate (4-7) Last Admin: 04/23/17 00:15 Dose: 15 mg Metoprolol Succinate (Toprol Xl) 100 mg PO DAILY [facility] Last Admin: 04/23/17 12:43 Dose: 100 mg Morphine Sulfate (Morphine) 2 mg IVP Q15M PRN PRN Reason: Pain, moderate (4-7) Last Admin: 04/22/17 19:14 Dose: 2 mg Ondansetron HCl (Zofran Inj) 4 mg IVP Q4H PRN PRN Reason: Nausea/Vomiting Last Admin: 04/23/17 10:22 Dose: 4 mg Ondansetron HCl (Zofran Inj) 4 mg IVP ONCE PRN PRN Reason: Nausea/Vomiting Pantoprazole Sodium (Protonix Inj) 40 mg IVP BID [facility] Last Admin: 04/23/17 10:21 Dose: 40 mg - Labs Labs: 04/23/17 07:09 04/23/17 07:09 PT 10.2 Seconds (9.9-11.8) 04/20/17 06:00 INR 0.94 (0.93-1.08) 04/20/17 06:00 APTT 24.5 Seconds (23.7-30.8) 04/20/17 06:00 - Constitutional Appears: Non-toxic, No Acute Distress - Head Exam Head Exam: ATRAUMATIC, NORMAL INSPECTION - Eye Exam Eye Exam: EOMI, Normal appearance - ENT Exam ENT Exam: Mucous Membranes Moist Additional comments: NGT in place - Neck Exam Neck Exam: Full ROM - Respiratory Exam Respiratory Exam: Clear to Ausculation Bilateral, NORMAL BREATHING PATTERN. absent: Rales, Rhonchi, Wheezes - Cardiovascular Exam Cardiovascular Exam: REGULAR RHYTHM, +S1, +S2 - GI/Abdominal Exam GI & Abdominal Exam: Soft, Tenderness, Hypoactive Bowel Sounds. absent: Guarding, Rigid Additional comments: Dressing c/d/i - Extremities Exam Extremities Exam: Full ROM, Normal Inspection. absent: Calf Tenderness - Back Exam Back Exam: NORMAL INSPECTION - Neurological Exam Neurological Exam: Alert, Awake, Oriented x3 - Psychiatric Exam Psychiatric exam: Normal Affect, Normal Mood - Skin Skin Exam: Dry, Normal Color, Warm Assessment and Plan - Assessment and Plan (Free Text) Assessment: 77 year old female with past medical history of HTN, peptic ulcer diease, peripheral vascular disease presents with small bowel obstruction, S/P exploratory laparotomy, lysis of adhesions, reduction of internal hernia, appendectomy POD#1 Plan: 1. Small Bowel Obstruction, s/p Ex lap, LORRAINE, Internal reduction of hernia, appendectomy POD#1 - Stable, afebrile - Pain control : morphine, toradol prn - Diet NPO - Continue IVF - Zofran prn nausea - F/U ascitic fluid culture - Diet advancement per surgery recs - Encourage ambulation and ISS use - Monitor for return of bowel function - GI consulted; f/u recommendations - Surg consulted; f/u recommendations 2. Urinary Tract Infection - Continue Rochepin - Urine cx showing possible contaminant - F/U repeat Urine cx 3. Peptic Ulcer Disease - Continue Protonix 4. Hypertension - Metoprolol 100mg daily - Hydralazine 10mg Q6H prn 5. Peripheral Vascular Disease - Continue Aspirin 6. Dyslipidemia - Atorvastatin 40 mg daily 7. Hyperkalemia - Potassium 4.1 today - Will continue to monitor DVT/GI prophylaxis - Heparin/Protonix <Lesley Stephenson - Last Filed: 04/24/17 17:48> Objective - Vital Signs/Intake and Output Vital Signs (last 24 hours): Temp Pulse Resp BP Pulse Ox 99.8 F H 79 18 163/81 H 96 04/24/17 09:05 04/24/17 09:05 04/24/17 09:05 04/24/17 09:05 04/24/17 09:05 Intake and Output: 04/24/17 04/24/17 06:59 18:59 Intake Total 1320 Output Total 500 Balance 820 - Medications Medications: Current Medications Atorvastatin Calcium (Lipitor) 40 mg PO DAILY [facility] Last Admin: 04/24/17 09:00 Dose: Not Given Heparin Sodium (Porcine) (Heparin) 5,000 units SC Q12 [facility] PRN Reason: Protocol Last Admin: 04/23/17 21:44 Dose: 5,000 units Hydralazine HCl (Apresoline) 10 mg IVP Q6 PRN PRN Reason: hypertension Ceftriaxone Sodium (Rocephin 1 Gram Ivpb) 1 gm in 100 mls @ 100 mls/hr IVPB DAILY [facility] PRN Reason: Protocol Last Admin: 04/24/17 10:01 Dose: 100 mls/hr Sodium Chloride (Sodium Chloride 0.9%) 1,000 mls @ 100 mls/hr IV .Q10H [facility] Last Admin: 04/24/17 08:55 Dose: 100 mls/hr Ketorolac Tromethamine (Toradol) 30 mg IVP Q6 PRN PRN Reason: Pain, severe (8-10) Last Admin: 04/23/17 17:15 Dose: 30 mg Ketorolac Tromethamine (Toradol) 15 mg IVP Q4 PRN PRN Reason: Pain, moderate (4-7) Last Admin: 04/23/17 00:15 Dose: 15 mg Losartan Potassium (Cozaar) 50 mg PO DAILY [facility] Metoprolol Succinate (Toprol Xl) 100 mg PO DAILY [facility] Last Admin: 04/24/17 09:00 Dose: Not Given Morphine Sulfate (Morphine) 2 mg IVP Q15M PRN PRN Reason: Pain, moderate (4-7) Last Admin: 04/22/17 19:14 Dose: 2 mg Ondansetron HCl (Zofran Inj) 4 mg IVP Q4H PRN PRN Reason: Nausea/Vomiting Last Admin: 04/24/17 03:30 Dose: 4 mg Pantoprazole Sodium (Protonix Inj) 40 mg IVP BID [facility] Last Admin: 04/24/17 10:02 Dose: 40 mg - Labs Labs: 04/24/17 07:20 04/24/17 07:20 PT 10.2 Seconds (9.9-11.8) 04/20/17 06:00 INR 0.94 (0.93-1.08) 04/20/17 06:00 APTT 24.5 Seconds (23.7-30.8) 04/20/17 06:00 Attending/Attestation - Attestation I have personally seen and examined this patient.: Yes I have fully participated in the care of the patient.: Yes I have reviewed all pertinent clinical information, including history, physical exam and plan: Yes Notes (Text): I have seen and examined the patient at bedside. Agree with the above note with the following additions/ exceptions: Briefly this is 77 year old female with history of HTN, peptic ulcer disease, peripheral vascular disease who was admitted with small bowel obstruction. GI and surgery on board. Repeat CT findings were noted and patient was taken to OR for ex-lap, LORRAINE, reduction of internal hernia and appendectomy. Today is POD#1. She had no BM or flatus. Advance diet as per surgery. Will continue hydralazine prn. Upon discharge patient will follow up with Dr Greene. Dr Lesley Stephenson
[2017-04-24 07:35] LABS: HEMATOCRIT 30.4 % (36.0-48.0); MEAN CELL VOLUME 99.3 fl (80.0-105.0); MEAN CORPUSCULAR HEMOGLOBIN 34.3 pg (25.0-35.0); MEAN CORPUSCULAR HGB CONC 34.5 g/dl (31.0-37.0); MEAN PLATELET VOLUME 9.1 fl (7.0-11.0); RED CELL DISTRIBUTION WIDTH 12.2 % (11.5-14.5); WHITE BLOOD COUNT 9.3 10^3/ul (4.5-11.0)
[2017-04-24 07:49] LABS: ALB/GLOB RATIO 1.2 (1.1-1.8); ALKALINE PHOSPHATASE 52 U/L (38-126); ALT/SGPT 32 U/L (7-56); AST/SGOT 22 U/L (14-36); BILIRUBIN,TOTAL 0.7 mg/dL (0.2-1.3); BLOOD UREA NITROGEN 5 mg/dL (7-21); CARBON DIOXIDE 21 mmol/L (21-33); CHLORIDE 109 mmol/L (95-110); GFR AFRICAN-AMERICAN > 60; GLUCOSE,RANDOM 95 mg/dL (70-110); POTASSIUM 3.1 mmol/L (3.6-5.0); SODIUM 141 mmol/L (132-148); TOTAL PROTEIN 5.4 g/dL (5.8-8.3)
--- NOTE | 2017-04-24 07:53 | CP.PCM.PN ---
<Aruna Mckeon - Last Filed: 04/24/17 13:05> Subjective - Date & Time of Evaluation Date of Evaluation: 04/24/17 Time of Evaluation: 07:00 - Subjective Subjective: Dr. Sachin Lewis Pt was seen and examined at bedside. Pt states she was unable to tolerate her dinner last night and experienced an episode of vomitting right after finishing dinner. Pt denied flatus, or bowel movement at this time. Pt states she has been belching, however. Pt has been ambulating with assistance. She states her pain is under control. Abdominal dressing is in place, cdi. Pt denied fever, chills, sob, chest pains, abdominal pains, or urinary symptoms. Objective - Vital Signs/Intake and Output Vital Signs (last 24 hours): Temp Pulse Resp BP Pulse Ox 97.9 F 82 18 161/64 H 98 04/23/17 22:00 04/23/17 22:00 04/23/17 22:00 04/23/17 22:00 04/23/17 22:00 Intake and Output: 04/24/17 04/24/17 06:59 18:59 Intake Total 120 Balance 120 - Medications Medications: Current Medications Atorvastatin Calcium (Lipitor) 40 mg PO DAILY [facility] Last Admin: 04/23/17 10:31 Dose: 40 mg Heparin Sodium (Porcine) (Heparin) 5,000 units SC Q12 [facility] PRN Reason: Protocol Last Admin: 04/23/17 21:44 Dose: 5,000 units Hydralazine HCl (Apresoline) 10 mg IVP Q6 PRN PRN Reason: hypertension Ceftriaxone Sodium (Rocephin 1 Gram Ivpb) 1 gm in 100 mls @ 100 mls/hr IVPB DAILY [facility] PRN Reason: Protocol Last Admin: 04/23/17 10:20 Dose: 100 mls/hr Sodium Chloride (Sodium Chloride 0.9%) 1,000 mls @ 100 mls/hr IV .Q10H [facility] Last Admin: 04/23/17 21:46 Dose: 100 mls/hr Ketorolac Tromethamine (Toradol) 30 mg IVP Q6 PRN PRN Reason: Pain, severe (8-10) Last Admin: 04/23/17 17:15 Dose: 30 mg Ketorolac Tromethamine (Toradol) 15 mg IVP Q4 PRN PRN Reason: Pain, moderate (4-7) Last Admin: 04/23/17 00:15 Dose: 15 mg Metoprolol Succinate (Toprol Xl) 100 mg PO DAILY [facility] Last Admin: 04/23/17 12:43 Dose: 100 mg Morphine Sulfate (Morphine) 2 mg IVP Q15M PRN PRN Reason: Pain, moderate (4-7) Last Admin: 04/22/17 19:14 Dose: 2 mg Ondansetron HCl (Zofran Inj) 4 mg IVP Q4H PRN PRN Reason: Nausea/Vomiting Last Admin: 04/24/17 03:30 Dose: 4 mg Ondansetron HCl (Zofran Inj) 4 mg IVP ONCE PRN PRN Reason: Nausea/Vomiting Pantoprazole Sodium (Protonix Inj) 40 mg IVP BID [facility] Last Admin: 04/23/17 17:11 Dose: 40 mg - Labs Labs: 04/24/17 07:20 04/23/17 07:09 PT 10.2 Seconds (9.9-11.8) 04/20/17 06:00 INR 0.94 (0.93-1.08) 04/20/17 06:00 APTT 24.5 Seconds (23.7-30.8) 04/20/17 06:00 Assessment and Plan - Assessment and Plan (Free Text) Assessment: 77 year old female with past medical history of HTN, peptic ulcer diease, peripheral vascular disease presents with small bowel obstruction, S/P exploratory laparotomy, lysis of adhesions, reduction of internal hernia, appendectomy POD#2 1. Small Bowel Obstruction, s/p Ex lap, LORRAINE, Internal reduction of hernia, appendectomy POD#1 - Stable, afebrile - Pain control : morphine, toradol prn - Diet CLD, advance as tolerated - Continue IVF - Zofran prn nausea - F/U ascitic fluid culture - Diet advancement per surgery recs - Encourage ambulation and ISS use - Monitor for return of bowel function - GI consulted; f/u recommendations - Surg consulted; f/u recommendations 2. Urinary Tract Infection - Continue Rochepin - F/U repeat Urine cx 3. Peptic Ulcer Disease - Continue Protonix 4. Hypertension - Metoprolol 100mg daily - Diovan 80mg - Hydralazine 10mg Q6H prn 5. Peripheral Vascular Disease - Continue Aspirin 6. Dyslipidemia - Atorvastatin 40 mg daily 7. Hyperkalemia - Potassium 4.1 today - Will continue to monitor DVT/GI prophylaxis - Heparin/Protonix Seen reviewed and discussed with attending <Lesley Stephenson - Last Filed: 04/24/17 17:56> Objective - Vital Signs/Intake and Output Vital Signs (last 24 hours): Temp Pulse Resp BP Pulse Ox 99.8 F H 79 18 163/81 H 96 04/24/17 09:05 04/24/17 09:05 04/24/17 09:05 04/24/17 09:05 04/24/17 09:05 Intake and Output: 04/24/17 04/24/17 06:59 18:59 Intake Total 1320 Output Total 500 Balance 820 - Medications Medications: Current Medications Atorvastatin Calcium (Lipitor) 40 mg PO DAILY [facility] Last Admin: 04/24/17 09:00 Dose: Not Given Heparin Sodium (Porcine) (Heparin) 5,000 units SC Q12 [facility] PRN Reason: Protocol Last Admin: 04/23/17 21:44 Dose: 5,000 units Hydralazine HCl (Apresoline) 10 mg IVP Q6 PRN PRN Reason: hypertension Sodium Chloride (Sodium Chloride 0.9%) 1,000 mls @ 100 mls/hr IV .Q10H [facility] Last Admin: 04/24/17 08:55 Dose: 100 mls/hr Ketorolac Tromethamine (Toradol) 30 mg IVP Q6 PRN PRN Reason: Pain, severe (8-10) Last Admin: 04/23/17 17:15 Dose: 30 mg Ketorolac Tromethamine (Toradol) 15 mg IVP Q4 PRN PRN Reason: Pain, moderate (4-7) Last Admin: 04/23/17 00:15 Dose: 15 mg Losartan Potassium (Cozaar) 50 mg PO DAILY [facility] Metoprolol Succinate (Toprol Xl) 100 mg PO DAILY [facility] Last Admin: 04/24/17 09:00 Dose: Not Given Morphine Sulfate (Morphine) 2 mg IVP Q15M PRN PRN Reason: Pain, moderate (4-7) Last Admin: 04/22/17 19:14 Dose: 2 mg Ondansetron HCl (Zofran Inj) 4 mg IVP Q4H PRN PRN Reason: Nausea/Vomiting Last Admin: 04/24/17 03:30 Dose: 4 mg Pantoprazole Sodium (Protonix Inj) 40 mg IVP BID [facility] Last Admin: 04/24/17 10:02 Dose: 40 mg - Labs Labs: 04/24/17 07:20 04/24/17 07:20 PT 10.2 Seconds (9.9-11.8) 04/20/17 06:00 INR 0.94 (0.93-1.08) 04/20/17 06:00 APTT 24.5 Seconds (23.7-30.8) 04/20/17 06:00 Attending/Attestation - Attestation I have personally seen and examined this patient.: Yes I have fully participated in the care of the patient.: Yes I have reviewed all pertinent clinical information, including history, physical exam and plan: Yes Notes (Text): I have seen and examined the patient at bedside. Agree with the above note with the following additions/ exceptions: Briefly this is 77 year old female with history of HTN, peptic ulcer disease, peripheral vascular disease who was admitted with small bowel obstruction now s/p ex-lap, LORRAINE, reduction of internal hernia and appendectomy. Today is POD#2. Patient has been having pain in the abdomen along with coffee ground emesis. She was made NPO and NGT was inserted. Manage as per surgery. Will continue metoprolol, diovan and hydralazine prn. Will stop rocephin. Upon discharge patient will follow up with Dr Greene. Dr Lesley Stephenson
[2017-04-24] MEDS ORDERED: Potassium Chloride 20 mEq ER Tab PO ONE (08:47)
[2017-04-24] MEDS: Sodium Chloride 0.9% 1,000 ML IV SCH ×3 (08:55→20:34)
[2017-04-24] MEDS: Metoprolol Succinate 100 mg XL Tab PO SCH (09:00)
[2017-04-24] MEDS: cefTRIAXone 1 gm 1 GM/100 ML BAG IVPB SCH (10:01)
--- NOTE | 2017-04-24 14:30 | CP.PCM.PN ---
Subjective - Date & Time of Evaluation Date of Evaluation: 04/24/17 Time of Evaluation: 06:50 - Subjective Subjective: Surgery progress note for Dr. Hernandez 77F seen and examined at bedside. Patient continues to complain of nausea and vomiting, denies pain, denies flatus or BM. Objective - Vital Signs/Intake and Output Vital Signs (last 24 hours): Temp Pulse Resp BP Pulse Ox 99.8 F H 79 18 163/81 H 96 04/24/17 09:05 04/24/17 09:05 04/24/17 09:05 04/24/17 09:05 04/24/17 09:05 Intake and Output: 04/24/17 04/24/17 06:59 18:59 Intake Total 1320 Output Total 500 Balance 820 - Medications Medications: Current Medications Atorvastatin Calcium (Lipitor) 40 mg PO DAILY [facility] Last Admin: 04/24/17 09:00 Dose: Not Given Heparin Sodium (Porcine) (Heparin) 5,000 units SC Q12 [facility] PRN Reason: Protocol Last Admin: 04/23/17 21:44 Dose: 5,000 units Hydralazine HCl (Apresoline) 10 mg IVP Q6 PRN PRN Reason: hypertension Ceftriaxone Sodium (Rocephin 1 Gram Ivpb) 1 gm in 100 mls @ 100 mls/hr IVPB DAILY [facility] PRN Reason: Protocol Last Admin: 04/24/17 10:01 Dose: 100 mls/hr Sodium Chloride (Sodium Chloride 0.9%) 1,000 mls @ 100 mls/hr IV .Q10H [facility] Last Admin: 04/24/17 08:55 Dose: 100 mls/hr Ketorolac Tromethamine (Toradol) 30 mg IVP Q6 PRN PRN Reason: Pain, severe (8-10) Last Admin: 04/23/17 17:15 Dose: 30 mg Ketorolac Tromethamine (Toradol) 15 mg IVP Q4 PRN PRN Reason: Pain, moderate (4-7) Last Admin: 04/23/17 00:15 Dose: 15 mg Losartan Potassium (Cozaar) 50 mg PO DAILY [facility] Metoprolol Succinate (Toprol Xl) 100 mg PO DAILY [facility] Last Admin: 04/24/17 09:00 Dose: Not Given Morphine Sulfate (Morphine) 2 mg IVP Q15M PRN PRN Reason: Pain, moderate (4-7) Last Admin: 04/22/17 19:14 Dose: 2 mg Ondansetron HCl (Zofran Inj) 4 mg IVP Q4H PRN PRN Reason: Nausea/Vomiting Last Admin: 04/24/17 03:30 Dose: 4 mg Pantoprazole Sodium (Protonix Inj) 40 mg IVP BID [facility] Last Admin: 04/24/17 10:02 Dose: 40 mg - Labs Labs: 04/24/17 07:20 04/24/17 07:20 PT 10.2 Seconds (9.9-11.8) 04/20/17 06:00 INR 0.94 (0.93-1.08) 04/20/17 06:00 APTT 24.5 Seconds (23.7-30.8) 04/20/17 06:00 - Constitutional Appears: Non-toxic, No Acute Distress - Head Exam Head Exam: ATRAUMATIC - Respiratory Exam Respiratory Exam: Clear to Ausculation Bilateral, NORMAL BREATHING PATTERN - Cardiovascular Exam Cardiovascular Exam: REGULAR RHYTHM, +S1, +S2 - GI/Abdominal Exam GI & Abdominal Exam: Soft. absent: Distended, Firm, Guarding, Rigid, Tenderness , Rebound Additional comments: incision clean dry intact - Neurological Exam Neurological Exam: Alert, Awake Assessment and Plan - Assessment and Plan (Free Text) Assessment: 77F s/p ex-laparotomy, reduction of internal hernia, lysis of adhesion Plan: - place NGT this evening - f/u CXR - Monitor bowel function - DVT/GI ppx Further recs discuss with Dr. David Valentin, PGY2
[2017-04-25 07:30] LABS: HEMATOCRIT 32.6 % (36.0-48.0); MEAN CELL VOLUME 97.9 fl (80.0-105.0); MEAN CORPUSCULAR HEMOGLOBIN 35.1 pg (25.0-35.0); MEAN CORPUSCULAR HGB CONC 35.9 g/dl (31.0-37.0); WHITE BLOOD COUNT 9.8 10^3/ul (4.5-11.0)
[2017-04-25 07:39] LABS: BLOOD UREA NITROGEN 3 mg/dL (7-21); CALCIUM 9.3 mg/dL (8.4-10.5); CARBON DIOXIDE 22 mmol/L (21-33); CHLORIDE 104 mmol/L (95-110); GFR AFRICAN-AMERICAN > 60; GLUCOSE,RANDOM 81 mg/dL (70-110); POTASSIUM 3.5 mmol/L (3.6-5.0); SODIUM 141 mmol/L (132-148)
[2017-04-25] MEDS ORDERED: Potassium Chl 10 mEq in D5-1/2 1,000 ML IV SCH (08:45)
--- NOTE | 2017-04-25 09:05 | CP.PCM.PN ---
Subjective - Date & Time of Evaluation Date of Evaluation: 04/25/17 Time of Evaluation: 08:54 - Subjective Subjective: Surgery progress note for Dr. Hernandez Patient seen and examined at bedside. Patient resting comfortably in bed with no new complaints at this time. Patient says she is thirsty and asking for water. Patient says she has not passed gas or had a BM. She denies nausea, vomiting, CP/SOB, leg pain. Objective - Vital Signs/Intake and Output Vital Signs (last 24 hours): Temp Pulse Resp BP Pulse Ox 99 F 68 18 148/93 H 97 04/25/17 07:00 04/25/17 07:00 04/25/17 07:00 04/25/17 07:00 04/25/17 07:00 Intake and Output: 04/25/17 04/25/17 06:59 18:59 Intake Total 720 Output Total 2 Balance 718 - Medications Medications: Current Medications Atorvastatin Calcium (Lipitor) 40 mg PO DAILY [facility] Last Admin: 04/24/17 09:00 Dose: Not Given Heparin Sodium (Porcine) (Heparin) 5,000 units SC Q12 JOSE GUADALUPE PRN Reason: Protocol Last Admin: 04/24/17 21:50 Dose: 5,000 units Hydralazine HCl (Apresoline) 10 mg IVP Q6 PRN PRN Reason: hypertension Sodium Chloride (Sodium Chloride 0.9%) 1,000 mls @ 100 mls/hr IV .Q10H [facility] Last Admin: 04/24/17 20:34 Dose: Not Given Potassium Chloride/Dextrose/Sod Cl (Potassium Chl 10 Meq In D5-1/2ns) 1,000 mls @ 100 mls/hr IV .Q10H [facility] Ketorolac Tromethamine (Toradol) 30 mg IVP Q6 PRN PRN Reason: Pain, severe (8-10) Last Admin: 04/23/17 17:15 Dose: 30 mg Ketorolac Tromethamine (Toradol) 15 mg IVP Q4 PRN PRN Reason: Pain, moderate (4-7) Last Admin: 04/23/17 00:15 Dose: 15 mg Losartan Potassium (Cozaar) 50 mg PO DAILY [facility] Last Admin: 04/24/17 13:40 Dose: Not Given Metoprolol Succinate (Toprol Xl) 100 mg PO DAILY [facility] Last Admin: 04/24/17 09:00 Dose: Not Given Morphine Sulfate (Morphine) 2 mg IVP Q15M PRN PRN Reason: Pain, moderate (4-7) Last Admin: 04/22/17 19:14 Dose: 2 mg Ondansetron HCl (Zofran Inj) 4 mg IVP Q4H PRN PRN Reason: Nausea/Vomiting Last Admin: 04/24/17 03:30 Dose: 4 mg Pantoprazole Sodium (Protonix Inj) 40 mg IVP BID JOSE GUADALUPE Last Admin: 04/24/17 18:59 Dose: 40 mg - Labs Labs: 04/25/17 07:27 04/25/17 07:27 PT 10.2 Seconds (9.9-11.8) 04/20/17 06:00 INR 0.94 (0.93-1.08) 04/20/17 06:00 APTT 24.5 Seconds (23.7-30.8) 04/20/17 06:00 - Constitutional Appears: Non-toxic, No Acute Distress - Head Exam Head Exam: NORMAL INSPECTION - Eye Exam Eye Exam: EOMI - ENT Exam ENT Exam: Mucous Membranes Dry Additional comments: NG tube in place - Respiratory Exam Respiratory Exam: NORMAL BREATHING PATTERN. absent: Accessory Muscle Use, Respiratory Distress - Cardiovascular Exam Cardiovascular Exam: REGULAR RHYTHM. absent: Bradycardia, Tachycardia - GI/Abdominal Exam GI & Abdominal Exam: Soft, Tenderness (epigastric TTP ). absent: Distended - Extremities Exam Extremities Exam: absent: Calf Tenderness - Neurological Exam Neurological Exam: Alert, Awake - Psychiatric Exam Psychiatric exam: Normal Affect, Normal Mood - Skin Skin Exam: Dry, Intact, Normal Color, Warm Assessment and Plan - Assessment and Plan (Free Text) Assessment: 77F s/p exploratory laparotomy with appendectomy, lysis of adhesions, and reduction of internal hernia POD#3 Plan: - NG tube and monitor output (2L since placement yesterday) - analgesics - zofran prn - IVF - sips and chips - further recs to be discussed with Dr. David Jerome PGY1
--- NOTE | 2017-04-25 09:15 | RAD ---
HISTORY: NGT placement COMPARISON: 04/20/2017 FINDINGS: LUNGS: Minimal bibasilar atelectasis PLEURA: No significant pleural effusion identified, no pneumothorax apparent. CARDIOVASCULAR: Normal. OSSEOUS STRUCTURES: No significant abnormalities. VISUALIZED UPPER ABDOMEN: The nasogastric tube is seen in satisfactory position OTHER FINDINGS: None. IMPRESSION: Nasogastric tube in satisfactory position
[2017-04-25] MEDS: Metoprolol Succinate 100 mg XL Tab PO SCH (09:23)
--- NOTE | 2017-04-25 13:28 | CP.PCM.PN ---
<Alesia Younger - Last Filed: 04/25/17 13:32> Subjective - Date & Time of Evaluation Date of Evaluation: 04/25/17 Time of Evaluation: 13:26 - Subjective Subjective: Hospitalist Service Progress Note: Patient seen and examined at bedside. Per nursing no acute events overnight. Patient is NPO, was having nausea and vomiting yesterday. NGT in place. Pain is controlled, denies passing flatus or BM. Denies headaches, dizziness, cp, palpitations, sob, urinary symptoms. Objective - Vital Signs/Intake and Output Vital Signs (last 24 hours): Temp Pulse Resp BP Pulse Ox 99 F 68 18 148/93 H 97 04/25/17 07:00 04/25/17 09:24 04/25/17 07:00 04/25/17 09:24 04/25/17 07:00 Intake and Output: 04/25/17 04/25/17 06:59 18:59 Intake Total 720 720 Output Total 2 Balance 718 720 - Medications Medications: Current Medications Atorvastatin Calcium (Lipitor) 40 mg PO DAILY [facility] Last Admin: 04/25/17 09:23 Dose: 40 mg Heparin Sodium (Porcine) (Heparin) 5,000 units SC Q12 JOSE GUADALUPE PRN Reason: Protocol Last Admin: 04/25/17 09:22 Dose: 5,000 units Hydralazine HCl (Apresoline) 10 mg IVP Q6 PRN PRN Reason: hypertension Sodium Chloride (Sodium Chloride 0.9%) 1,000 mls @ 100 mls/hr IV .Q10H [facility] Last Admin: 04/24/17 20:34 Dose: Not Given Potassium Chloride/Dextrose/Sod Cl (Potassium Chl 10 Meq In D5-1/2ns) 1,000 mls @ 100 mls/hr IV .Q10H [facility] Last Admin: 04/25/17 10:34 Dose: 100 mls/hr Ketorolac Tromethamine (Toradol) 30 mg IVP Q6 PRN PRN Reason: Pain, severe (8-10) Last Admin: 04/23/17 17:15 Dose: 30 mg Ketorolac Tromethamine (Toradol) 15 mg IVP Q4 PRN PRN Reason: Pain, moderate (4-7) Last Admin: 04/23/17 00:15 Dose: 15 mg Losartan Potassium (Cozaar) 50 mg PO DAILY [facility] Last Admin: 04/25/17 09:24 Dose: 50 mg Metoprolol Succinate (Toprol Xl) 100 mg PO DAILY [facility] Last Admin: 04/25/17 09:23 Dose: 100 mg Morphine Sulfate (Morphine) 2 mg IVP Q15M PRN PRN Reason: Pain, moderate (4-7) Last Admin: 04/22/17 19:14 Dose: 2 mg Ondansetron HCl (Zofran Inj) 4 mg IVP Q4H PRN PRN Reason: Nausea/Vomiting Last Admin: 04/24/17 03:30 Dose: 4 mg Pantoprazole Sodium (Protonix Inj) 40 mg IVP BID [facility] Last Admin: 04/25/17 09:24 Dose: 40 mg - Labs Labs: 04/25/17 07:27 04/25/17 07:27 PT 10.2 Seconds (9.9-11.8) 04/20/17 06:00 INR 0.94 (0.93-1.08) 04/20/17 06:00 APTT 24.5 Seconds (23.7-30.8) 04/20/17 06:00 - Constitutional Appears: Well, Non-toxic, No Acute Distress - Head Exam Head Exam: ATRAUMATIC, NORMAL INSPECTION - Eye Exam Eye Exam: EOMI, Normal appearance Pupil Exam: NORMAL ACCOMODATION - ENT Exam ENT Exam: Mucous Membranes Moist - Neck Exam Neck Exam: Full ROM - Respiratory Exam Respiratory Exam: Clear to Ausculation Bilateral, NORMAL BREATHING PATTERN. absent: Rales, Rhonchi, Wheezes - Cardiovascular Exam Cardiovascular Exam: REGULAR RHYTHM, +S1, +S2 - GI/Abdominal Exam GI & Abdominal Exam: Soft, Tenderness, Hypoactive Bowel Sounds. absent: Guarding, Rigid Additional comments: Incision c/d/i with dio - Extremities Exam Extremities Exam: Full ROM, Normal Inspection. absent: Calf Tenderness - Back Exam Back Exam: NORMAL INSPECTION - Neurological Exam Neurological Exam: Alert, Awake, Oriented x3 - Psychiatric Exam Psychiatric exam: Normal Affect, Normal Mood - Skin Skin Exam: Normal Color, Warm Assessment and Plan - Assessment and Plan (Free Text) Assessment: 77 year old female with past medical history of HTN, peptic ulcer diease, peripheral vascular disease presents with small bowel obstruction, S/P exploratory laparotomy, lysis of adhesions, reduction of internal hernia, appendectomy POD#3 Plan: 1. Small Bowel Obstruction, s/p Ex lap, LORRAINE, Internal reduction of hernia, appendectomy POD#3 - Stable, afebrile - Pain control : morphine, toradol prn - Diet NPO, advancement per surgery recs - Monitor NGT output - Continue IVF - Zofran prn nausea - Ascitic fluid culture showing no growth - Encourage ambulation and ISS use - Monitor for return of bowel function - Surg consulted; f/u recommendations - PT evaluation ordered 2. Urinary Tract Infection - Rochepin discontinued yesterday 3. Peptic Ulcer Disease - Continue Protonix 4. Hypertension - Metoprolol 100mg daily - Cozaar 50 mg daily - Hydralazine 10mg Q6H prn 5. Peripheral Vascular Disease - Continue Aspirin 6. Dyslipidemia - Atorvastatin 40 mg daily 7. Hyperkalemia - Potassium 3.5 today - Repleted, Will continue to monitor DVT/GI prophylaxis - Heparin/Protonix Seen reviewed and discussed with attending <Lesley Stephenson - Last Filed: 04/25/17 17:04> Objective - Vital Signs/Intake and Output Vital Signs (last 24 hours): Temp Pulse Resp BP Pulse Ox 99 F 68 18 148/93 H 97 04/25/17 07:00 04/25/17 09:24 04/25/17 07:00 04/25/17 09:24 04/25/17 07:00 Intake and Output: 04/25/17 04/25/17 06:59 18:59 Intake Total 720 720 Output Total 2 Balance 718 720 - Medications Medications: Current Medications Atorvastatin Calcium (Lipitor) 40 mg PO DAILY [facility] Last Admin: 04/25/17 09:23 Dose: 40 mg Heparin Sodium (Porcine) (Heparin) 5,000 units SC Q12 JOSE GUADALUPE PRN Reason: Protocol Last Admin: 04/25/17 09:22 Dose: 5,000 units Hydralazine HCl (Apresoline) 10 mg IVP Q6 PRN PRN Reason: hypertension Sodium Chloride (Sodium Chloride 0.9%) 1,000 mls @ 100 mls/hr IV .Q10H [facility] Last Admin: 04/24/17 20:34 Dose: Not Given Ketorolac Tromethamine (Toradol) 30 mg IVP Q6 PRN PRN Reason: Pain, severe (8-10) Last Admin: 04/23/17 17:15 Dose: 30 mg Ketorolac Tromethamine (Toradol) 15 mg IVP Q4 PRN PRN Reason: Pain, moderate (4-7) Last Admin: 04/23/17 00:15 Dose: 15 mg Losartan Potassium (Cozaar) 50 mg PO DAILY [facility] Last Admin: 04/25/17 09:24 Dose: 50 mg Metoprolol Succinate (Toprol Xl) 100 mg PO DAILY [facility] Last Admin: 04/25/17 09:23 Dose: 100 mg Morphine Sulfate (Morphine) 2 mg IVP Q15M PRN PRN Reason: Pain, moderate (4-7) Last Admin: 04/22/17 19:14 Dose: 2 mg Ondansetron HCl (Zofran Inj) 4 mg IVP Q4H PRN PRN Reason: Nausea/Vomiting Last Admin: 04/24/17 03:30 Dose: 4 mg Pantoprazole Sodium (Protonix Inj) 40 mg IVP BID [facility] Last Admin: 04/25/17 09:24 Dose: 40 mg - Labs Labs: 04/25/17 07:27 04/25/17 07:27 PT 10.2 Seconds (9.9-11.8) 04/20/17 06:00 INR 0.94 (0.93-1.08) 04/20/17 06:00 APTT 24.5 Seconds (23.7-30.8) 04/20/17 06:00 Attending/Attestation - Attestation I have personally seen and examined this patient.: Yes I have fully participated in the care of the patient.: Yes I have reviewed all pertinent clinical information, including history, physical exam and plan: Yes Notes (Text): I have seen and examined the patient at bedside. Agree with the above note with the following additions/ exceptions: Briefly this is 77 year old female with history of HTN, peptic ulcer disease, peripheral vascular disease who was admitted with small bowel obstruction now s/p ex-lap, LORRAINE, reduction of internal hernia and appendectomy. Today is POD#3. NGT was placed again last evening. Denies abdominal pain, nausea or vomiting. Patient remains NPO. Manage as per surgery. Will continue metoprolol, diovan and hydralazine prn. Will stop rocephin. Upon discharge patient will follow up with Dr Greene. Dr Lesley Stephenson
[2017-04-25] MEDS: Lactated Ringer's 1,000 ML IV SCH ×2 (22:13→22:15)
[2017-04-26 07:45] LABS: BASO # 0.01 K/mm3 (0.0-2.0); BASO % 0.2 % (0.0-3.0); EOS % 0.6 % (1.5-5.0); GRAN # 4.87 (1.4-6.5); GRAN % 76.2 % (50.0-68.0); HEMATOCRIT 30.9 % (36.0-48.0); LYMPH % 16.1 % (22.0-35.0); MEAN CELL VOLUME 96.3 fl (80.0-105.0); MEAN CORPUSCULAR HEMOGLOBIN 34.6 pg (25.0-35.0); MEAN CORPUSCULAR HGB CONC 35.9 g/dl (31.0-37.0); MEAN PLATELET VOLUME 9.2 fl (7.0-11.0); MONO # 0.4 (0.1-0.6); MONO % 6.9 % (1.0-6.0); RED CELL DISTRIBUTION WIDTH 11.6 % (11.5-14.5); WHITE BLOOD COUNT 6.4 10^3/ul (4.5-11.0)
[2017-04-26 08:02] LABS: ALB/GLOB RATIO 1.2 (1.1-1.8); ALKALINE PHOSPHATASE 56 U/L (38-126); ALT/SGPT 30 U/L (7-56); AST/SGOT 21 U/L (14-36); BILIRUBIN,TOTAL 0.6 mg/dL (0.2-1.3); BLOOD UREA NITROGEN 3 mg/dL (7-21); CALCIUM 9.4 mg/dL (8.4-10.5); CARBON DIOXIDE 27 mmol/L (21-33); CHLORIDE 103 mmol/L (98-107); GFR AFRICAN-AMERICAN > 60; GLUCOSE,RANDOM 103 mg/dL (70-110); MAGNESIUM 1.6 mg/dL (1.7-2.2); PHOSPHOROUS 1.8 mg/dL (2.5-4.5); SODIUM 138 mmol/L (132-148); TOTAL PROTEIN 5.5 g/dL (5.8-8.3)
[2017-04-26] MEDS: Lactated Ringer's 1,000 ML IV SCH ×2 (08:04→08:08)
[2017-04-26] MEDS ORDERED: Potassium Phosphate 15 MMOLE in Dextrose 5% In Water 250 ML IVPB ONE (08:05)
[2017-04-26] MEDS: Magnesium Sulfate 2 GM in Sodium Chloride 0.9% 100 ML IVPB ONE ×2 (08:45→10:07)
--- NOTE | 2017-04-26 08:46 | CP.PCM.PN ---
Subjective - Date & Time of Evaluation Date of Evaluation: 04/26/17 Time of Evaluation: 08:41 - Subjective Subjective: Surgery progress note for Dr. Hernandez Patient seen and examined at bedside. Patient resting comfortably in bed with no new complaints at this time. Patient says she is feeling a little better today. Patient says she has passed gas but she has not had a BM. She denies nausea, vomiting, CP/SOB, leg pain. Objective - Vital Signs/Intake and Output Vital Signs (last 24 hours): Temp Pulse Resp BP Pulse Ox 99 F 68 18 148/93 H 97 04/25/17 07:00 04/25/17 09:24 04/25/17 07:00 04/25/17 09:24 04/25/17 07:00 Intake and Output: 04/26/17 04/26/17 06:59 18:59 Intake Total 0 Balance 0 - Medications Medications: Current Medications Atorvastatin Calcium (Lipitor) 40 mg PO DAILY [facility] Last Admin: 04/25/17 09:23 Dose: 40 mg Heparin Sodium (Porcine) (Heparin) 5,000 units SC Q12 JOSE GUADALUPE PRN Reason: Protocol Last Admin: 04/25/17 21:20 Dose: 5,000 units Hydralazine HCl (Apresoline) 10 mg IVP Q6 PRN PRN Reason: hypertension Lactated Ringer's (Lactated Ringer's) 1,000 mls @ 100 mls/hr IV .Q10H [facility] Last Admin: 04/26/17 08:08 Dose: 100 mls/hr Magnesium Sulfate 2 gm/ Sodium (Chloride) 104 mls @ 102 mls/hr IVPB ONCE ONE Stop: 04/26/17 09:06 Potassium Chloride (Potassium Chloride 20 Meq/100 Ml) 20 meq in 100 mls @ 50 mls/hr IVPB Q2H JOSE GUADALUPE Stop: 04/26/17 12:14 Potassium Phosphate 15 mmole/ (Dextrose) 255 mls @ 42.5 mls/hr IVPB ONCE ONE Stop: 04/26/17 14:04 Ketorolac Tromethamine (Toradol) 30 mg IVP Q6 PRN PRN Reason: Pain, severe (8-10) Last Admin: 04/25/17 20:43 Dose: 30 mg Ketorolac Tromethamine (Toradol) 15 mg IVP Q4 PRN PRN Reason: Pain, moderate (4-7) Last Admin: 04/23/17 00:15 Dose: 15 mg Losartan Potassium (Cozaar) 50 mg PO DAILY [facility] Last Admin: 04/25/17 09:24 Dose: 50 mg Metoprolol Succinate (Toprol Xl) 100 mg PO DAILY [facility] Last Admin: 04/25/17 09:23 Dose: 100 mg Morphine Sulfate (Morphine) 2 mg IVP Q15M PRN PRN Reason: Pain, moderate (4-7) Last Admin: 04/22/17 19:14 Dose: 2 mg Ondansetron HCl (Zofran Inj) 4 mg IVP Q4H PRN PRN Reason: Nausea/Vomiting Last Admin: 04/24/17 03:30 Dose: 4 mg Pantoprazole Sodium (Protonix Inj) 40 mg IVP BID [facility] Last Admin: 04/25/17 17:24 Dose: 40 mg - Labs Labs: 04/26/17 07:30 04/26/17 07:30 PT 10.2 Seconds (9.9-11.8) 04/20/17 06:00 INR 0.94 (0.93-1.08) 04/20/17 06:00 APTT 24.5 Seconds (23.7-30.8) 04/20/17 06:00 - Constitutional Appears: Non-toxic, No Acute Distress - Head Exam Head Exam: NORMAL INSPECTION - Eye Exam Eye Exam: EOMI - ENT Exam Additional comments: NG tube in place with 1200 cc output over past 24 hours - Respiratory Exam Respiratory Exam: NORMAL BREATHING PATTERN. absent: Accessory Muscle Use, Wheezes, Respiratory Distress - Cardiovascular Exam Cardiovascular Exam: REGULAR RHYTHM. absent: Bradycardia, Tachycardia - GI/Abdominal Exam GI & Abdominal Exam: Soft, Tenderness (appropriate post op tenderness near incision site ). absent: Distended Additional comments: Midline incision with dio in place, C/D/I - Extremities Exam Extremities Exam: Normal Inspection. absent: Calf Tenderness - Neurological Exam Neurological Exam: Alert, Awake - Psychiatric Exam Psychiatric exam: Normal Affect, Normal Mood - Skin Skin Exam: Dry, Intact, Normal Color, Warm Assessment and Plan - Assessment and Plan (Free Text) Assessment: 77F s/p exploratory laparotomy with appendectomy, lysis of adhesions, and reduction of internal hernia POD#4 Plan: - NG tube and monitor output (1200 cc since yesterday morning) - analgesics - zofran prn - IVF - sips and chips - further recs to be discussed with Dr. David Jerome PGY1
[2017-04-26] MEDS: Metoprolol Succinate 100 mg XL Tab PO SCH (09:23)
--- NOTE | 2017-04-26 12:52 | CP.PCM.PN ---
<Kristofer Hart - Last Filed: 04/26/17 12:43> Subjective - Date & Time of Evaluation Date of Evaluation: 04/26/17 Time of Evaluation: 09:00 - Subjective Subjective: Subjective: Patient seen and examined at bedside. Resting comfortably in bed. No acute overnight events. Patient states abdominal pain has improved relative to baseline. Offers no new complaints at this time. Admits to experiencing flatulence but denies bm. Denies f/c/cp/sob/abdominal pain/n/v/d/c/urinary sxs. Physical Examination: - Constitutional Appears: Non-toxic, No Acute Distress - Head Exam Head Exam: NORMAL INSPECTION - Eye Exam Eye Exam: EOMI - ENT Exam Additional comments: NG tube in place with output noted in container - Respiratory Exam Respiratory Exam: NORMAL BREATHING PATTERN. absent: Accessory Muscle Use, Wheezes, Respiratory Distress - Cardiovascular Exam Cardiovascular Exam: REGULAR RHYTHM. absent: Bradycardia, Tachycardia - GI/Abdominal Exam GI & Abdominal Exam: Soft, Tenderness (appropriate post op tenderness near incision site ), positive bowel sounds; absent: Distended Additional comments: Midline incision with dio in place, C/D/I - Extremities Exam Extremities Exam: Normal Inspection. absent: Calf Tenderness - Neurological Exam Neurological Exam: Patient is awake, alert, responds to verbal stimuli, answers questions appropriately, follows commands, and moves extremities past midline - Psychiatric Exam Psychiatric exam: Normal Affect, Normal Mood - Skin Skin Exam: Dry, Intact, Normal Color, Warm Assessment and Plan: 77 year old female with past medical history of HTN, peptic ulcer diease, peripheral vascular disease presents with small bowel obstruction, S/P exploratory laparotomy, lysis of adhesions, reduction of internal hernia, appendectomy POD#4 Small Bowel Obstruction, s/p Ex lap, LORRAINE, Internal reduction of hernia, appendectomy POD#4 - Stable, afebrile - Pain control : morphine, toradol prn - Diet NPO, advancement per surgery recs - Monitor NGT output - Continue IVF - Zofran prn nausea - Ascitic fluid culture showing no growth - Encourage ambulation and ISS use - Monitor for return of bowel function - Surg consulted; f/u recommendations - PT evaluation ordered Urinary Tract Infection - Rochepin discontinued yesterday Peptic Ulcer Disease - Continue Protonix Hypertension - Metoprolol 100mg daily - Cozaar 50 mg daily - Hydralazine 10mg Q6H prn Peripheral Vascular Disease - continue to monitor extremities Dyslipidemia - Atorvastatin 40 mg daily Hypokalemia and Hypomagnesemia - Repleted, Will monitor closely with AM labs DVT/GI prophylaxis - Heparin/Protonix Patient seen, case discussed with, and plan approved by attending physician, Dr. Stephenson. Objective - Vital Signs/Intake and Output Vital Signs (last 24 hours): Temp Pulse Resp BP Pulse Ox 98.4 F 78 18 154/84 H 96 04/26/17 08:00 04/26/17 09:23 04/26/17 08:00 04/26/17 09:23 04/26/17 08:00 Intake and Output: 04/26/17 04/26/17 06:59 18:59 Intake Total 0 Balance 0 - Medications Medications: Current Medications Atorvastatin Calcium (Lipitor) 40 mg PO DAILY [facility] Last Admin: 04/26/17 09:23 Dose: 40 mg Heparin Sodium (Porcine) (Heparin) 5,000 units SC Q12 JOSE GUADALUPE PRN Reason: Protocol Last Admin: 04/26/17 09:34 Dose: 5,000 units Hydralazine HCl (Apresoline) 10 mg IVP Q6 PRN PRN Reason: hypertension Lactated Ringer's (Lactated Ringer's) 1,000 mls @ 100 mls/hr IV .Q10H [facility] Last Admin: 04/26/17 08:08 Dose: 100 mls/hr Potassium Phosphate 15 mmole/ (Dextrose) 255 mls @ 42.5 mls/hr IVPB ONCE ONE Stop: 04/26/17 14:04 Last Admin: 04/26/17 09:51 Dose: 42.5 mls/hr Ketorolac Tromethamine (Toradol) 30 mg IVP Q6 PRN PRN Reason: Pain, severe (8-10) Last Admin: 04/25/17 20:43 Dose: 30 mg Ketorolac Tromethamine (Toradol) 15 mg IVP Q4 PRN PRN Reason: Pain, moderate (4-7) Last Admin: 04/23/17 00:15 Dose: 15 mg Losartan Potassium (Cozaar) 50 mg PO DAILY [facility] Last Admin: 04/26/17 09:23 Dose: 50 mg Metoprolol Succinate (Toprol Xl) 100 mg PO DAILY [facility] Last Admin: 04/26/17 09:23 Dose: 100 mg Morphine Sulfate (Morphine) 2 mg IVP Q15M PRN PRN Reason: Pain, moderate (4-7) Last Admin: 04/22/17 19:14 Dose: 2 mg Ondansetron HCl (Zofran Inj) 4 mg IVP Q4H PRN PRN Reason: Nausea/Vomiting Last Admin: 04/26/17 09:33 Dose: 4 mg Pantoprazole Sodium (Protonix Inj) 40 mg IVP BID [facility] Last Admin: 04/26/17 09:22 Dose: 40 mg - Labs Labs: 04/26/17 07:30 04/26/17 07:30 PT 10.2 Seconds (9.9-11.8) 04/20/17 06:00 INR 0.94 (0.93-1.08) 04/20/17 06:00 APTT 24.5 Seconds (23.7-30.8) 04/20/17 06:00 <Lesley Stephenson - Last Filed: 04/26/17 13:11> Objective - Vital Signs/Intake and Output Vital Signs (last 24 hours): Temp Pulse Resp BP Pulse Ox 98.4 F 78 18 154/84 H 96 04/26/17 08:00 04/26/17 09:23 04/26/17 08:00 04/26/17 09:23 04/26/17 08:00 Intake and Output: 04/26/17 04/26/17 06:59 18:59 Intake Total 0 Balance 0 - Medications Medications: Current Medications Atorvastatin Calcium (Lipitor) 40 mg PO DAILY [facility] Last Admin: 04/26/17 09:23 Dose: 40 mg Heparin Sodium (Porcine) (Heparin) 5,000 units SC Q12 JOSE GUADALUPE PRN Reason: Protocol Last Admin: 04/26/17 09:34 Dose: 5,000 units Hydralazine HCl (Apresoline) 10 mg IVP Q6 PRN PRN Reason: hypertension Lactated Ringer's (Lactated Ringer's) 1,000 mls @ 100 mls/hr IV .Q10H [facility] Last Admin: 04/26/17 08:08 Dose: 100 mls/hr Potassium Phosphate 15 mmole/ (Dextrose) 255 mls @ 42.5 mls/hr IVPB ONCE ONE Stop: 04/26/17 14:04 Last Admin: 04/26/17 09:51 Dose: 42.5 mls/hr Ketorolac Tromethamine (Toradol) 30 mg IVP Q6 PRN PRN Reason: Pain, severe (8-10) Last Admin: 04/25/17 20:43 Dose: 30 mg Ketorolac Tromethamine (Toradol) 15 mg IVP Q4 PRN PRN Reason: Pain, moderate (4-7) Last Admin: 04/23/17 00:15 Dose: 15 mg Losartan Potassium (Cozaar) 50 mg PO DAILY [facility] Last Admin: 04/26/17 09:23 Dose: 50 mg Metoprolol Succinate (Toprol Xl) 100 mg PO DAILY [facility] Last Admin: 04/26/17 09:23 Dose: 100 mg Morphine Sulfate (Morphine) 2 mg IVP Q15M PRN PRN Reason: Pain, moderate (4-7) Last Admin: 04/22/17 19:14 Dose: 2 mg Ondansetron HCl (Zofran Inj) 4 mg IVP Q4H PRN PRN Reason: Nausea/Vomiting Last Admin: 04/26/17 09:33 Dose: 4 mg Pantoprazole Sodium (Protonix Inj) 40 mg IVP BID [facility] Last Admin: 04/26/17 09:22 Dose: 40 mg - Labs Labs: 04/26/17 07:30 04/26/17 07:30 PT 10.2 Seconds (9.9-11.8) 04/20/17 06:00 INR 0.94 (0.93-1.08) 04/20/17 06:00 APTT 24.5 Seconds (23.7-30.8) 04/20/17 06:00 Attending/Attestation - Attestation I have personally seen and examined this patient.: Yes I have fully participated in the care of the patient.: Yes I have reviewed all pertinent clinical information, including history, physical exam and plan: Yes Notes (Text): I have seen and examined the patient at bedside. Agree with the above note with the following additions/ exceptions: Briefly this is 77 year old female with history of HTN, peptic ulcer disease, peripheral vascular disease who was admitted with small bowel obstruction now s/p ex-lap, LORRAINE, reduction of internal hernia and appendectomy. Today is POD#4. NGT was placed again 2 days ago. Denies abdominal pain, nausea or vomiting. Patient remains NPO and feels much better. Manage as per surgery. Will continue metoprolol, diovan and hydralazine prn. Upon discharge patient will follow up with Dr Greene. Dr Lesley Stephenson
[2017-04-27 08:07] LABS: BASO # 0.01 K/mm3 (0.0-2.0); BASO % 0.2 % (0.0-3.0); EOS % 0.6 % (1.5-5.0); GRAN # 3.74 (1.4-6.5); GRAN % 69.2 % (50.0-68.0); HEMATOCRIT 30.9 % (36.0-48.0); LYMPH # 1.1 (1.2-3.4); LYMPH % 21.1 % (22.0-35.0); MEAN CELL VOLUME 96.3 fl (80.0-105.0); MEAN CORPUSCULAR HEMOGLOBIN 34.6 pg (25.0-35.0); MEAN CORPUSCULAR HGB CONC 35.9 g/dl (31.0-37.0); MEAN PLATELET VOLUME 8.8 fl (7.0-11.0); MONO # 0.5 (0.1-0.6); MONO % 8.9 % (1.0-6.0); RED CELL DISTRIBUTION WIDTH 11.5 % (11.5-14.5); WHITE BLOOD COUNT 5.4 10^3/ul (4.5-11.0)
--- NOTE | 2017-04-27 08:22 | CP.PCM.PN ---
Subjective - Date & Time of Evaluation Date of Evaluation: 04/27/17 Time of Evaluation: 08:19 - Subjective Subjective: Surgery progress note for Dr. Hernandez Patient seen and examined at bedside. Patient resting comfortably in bed with no new complaints at this time. Patient says she is having some mild abdominal pain but only when she coughs. Patient is passing flatus but denies having a BM. She denies fever, chills, nausea, vomiting, diarrhea, constipation, SOB. Objective - Vital Signs/Intake and Output Vital Signs (last 24 hours): Temp Pulse Resp BP Pulse Ox 98.1 F 76 20 155/78 H 100 04/26/17 16:00 04/26/17 16:00 04/26/17 16:00 04/26/17 16:00 04/26/17 16:00 Intake and Output: 04/27/17 04/27/17 06:59 18:59 Intake Total 0 1450 Output Total 500 Balance 0 950 - Medications Medications: Current Medications Amlodipine Besylate (Norvasc) 5 mg PO DAILY [facility] Atorvastatin Calcium (Lipitor) 40 mg PO DAILY [facility] Last Admin: 04/26/17 09:23 Dose: 40 mg Heparin Sodium (Porcine) (Heparin) 5,000 units SC Q12 [facility] PRN Reason: Protocol Last Admin: 04/26/17 21:15 Dose: 5,000 units Hydralazine HCl (Apresoline) 10 mg IVP Q6 PRN PRN Reason: hypertension Lactated Ringer's (Lactated Ringer's) 1,000 mls @ 100 mls/hr IV .Q10H [facility] Last Admin: 04/26/17 08:08 Dose: 100 mls/hr Ketorolac Tromethamine (Toradol) 30 mg IVP Q6 PRN PRN Reason: Pain, severe (8-10) Last Admin: 04/25/17 20:43 Dose: 30 mg Ketorolac Tromethamine (Toradol) 15 mg IVP Q4 PRN PRN Reason: Pain, moderate (4-7) Last Admin: 04/23/17 00:15 Dose: 15 mg Losartan Potassium (Cozaar) 50 mg PO DAILY [facility] Last Admin: 04/26/17 09:23 Dose: 50 mg Metoprolol Succinate (Toprol Xl) 100 mg PO DAILY [facility] Last Admin: 10/14/17 09:23 Dose: 100 mg Ondansetron HCl (Zofran Inj) 4 mg IVP Q4H PRN PRN Reason: Nausea/Vomiting Last Admin: 04/26/17 09:33 Dose: 4 mg Pantoprazole Sodium (Protonix Inj) 40 mg IVP BID [facility] Last Admin: 04/26/17 18:49 Dose: 40 mg - Labs Labs: 04/27/17 07:40 04/26/17 07:30 PT 10.2 Seconds (9.9-11.8) 04/20/17 06:00 INR 0.94 (0.93-1.08) 04/20/17 06:00 APTT 24.5 Seconds (23.7-30.8) 04/20/17 06:00 - Constitutional Appears: Non-toxic, No Acute Distress - Head Exam Head Exam: NORMAL INSPECTION - Eye Exam Eye Exam: EOMI - ENT Exam Additional comments: NG tube in place with 20 cc bilious drainage (emptied at midnight last night per nursing) Total drainage of 520 in last 12 hours - Respiratory Exam Respiratory Exam: NORMAL BREATHING PATTERN. absent: Accessory Muscle Use, Respiratory Distress - Cardiovascular Exam Cardiovascular Exam: REGULAR RHYTHM. absent: Bradycardia, Tachycardia - GI/Abdominal Exam GI & Abdominal Exam: Soft. absent: Distended, Tenderness - Extremities Exam Extremities Exam: absent: Calf Tenderness - Neurological Exam Neurological Exam: Alert, Awake - Psychiatric Exam Psychiatric exam: Normal Affect, Normal Mood - Skin Skin Exam: Dry, Intact, Normal Color, Warm Assessment and Plan - Assessment and Plan (Free Text) Assessment: 77F s/p exploratory laparotomy with appendectomy, lysis of adhesions, and reduction of internal hernia POD#5 Plan: - monitor NG tube output and consider removal (520 in 12 hours) - analgesics - zofran prn - IVF - sips and chips - further recs to be discussed with Dr. David Jerome PGY1
[2017-04-27 08:25] LABS: ALB/GLOB RATIO 1.3 (1.1-1.8); ALKALINE PHOSPHATASE 55 U/L (38-126); ALT/SGPT 44 U/L (7-56); AST/SGOT 24 U/L (14-36); BILIRUBIN,TOTAL 0.7 mg/dL (0.2-1.3); BLOOD UREA NITROGEN 4 mg/dL (7-21); CALCIUM 9.7 mg/dL (8.4-10.5); CARBON DIOXIDE 26 mmol/L (21-33); CHLORIDE 100 mmol/L (95-110); GFR AFRICAN-AMERICAN > 60; GLUCOSE,RANDOM 75 mg/dL (70-110); MAGNESIUM 1.4 mg/dL (1.7-2.2); PHOSPHOROUS 2.6 mg/dL (2.5-4.5); POTASSIUM 3.1 mmol/L (3.6-5.0); SODIUM 138 mmol/L (132-148); TOTAL PROTEIN 5.6 g/dL (5.8-8.3)
[2017-04-27] MEDS: Metoprolol Succinate 100 mg XL Tab PO SCH (10:08)
[2017-04-27] MEDS ORDERED: Magnesium Sulfate 1 gm in D5W 1 GM/100 ML BAG IVPB ONE (10:44)
--- NOTE | 2017-04-27 10:53 | CP.PCM.PN ---
<Kristofer Hart - Last Filed: 04/27/17 10:39> Subjective - Date & Time of Evaluation Date of Evaluation: 04/27/17 Time of Evaluation: 09:10 - Subjective Subjective: Subjective: Patient seen and examined at bedside. Resting comfortably in bed. Elevated BP noted overnight. Admits to abdominal pain but only when she coughs. Admits to experiencing flatulence but denies bm. Denies f/c/cp/sob/n/v/d/c/urinary sxs. Physical Examination: - Constitutional Appears: Non-toxic, No Acute Distress - Head Exam Head Exam: NORMAL INSPECTION - Eye Exam Eye Exam: EOMI - ENT Exam Additional comments: NG tube in place with output noted in container - Respiratory Exam Respiratory Exam: NORMAL BREATHING PATTERN. absent: Accessory Muscle Use, Wheezes, Respiratory Distress - Cardiovascular Exam Cardiovascular Exam: REGULAR RHYTHM. absent: Bradycardia, Tachycardia - GI/Abdominal Exam GI & Abdominal Exam: Soft, Tenderness (appropriate post op tenderness near incision site ), positive bowel sounds; absent: Distended Additional comments: Midline incision with dio in place, C/D/I - Extremities Exam Extremities Exam: Normal Inspection. absent: Calf Tenderness - Neurological Exam Neurological Exam: Patient is awake, alert, responds to verbal stimuli, answers questions appropriately, follows commands, and moves extremities past midline - Psychiatric Exam Psychiatric exam: Normal Affect, Normal Mood - Skin Skin Exam: Dry, Intact, Normal Color, Warm Assessment and Plan: 77 year old female with past medical history of HTN, peptic ulcer diease, peripheral vascular disease presents with small bowel obstruction, S/P exploratory laparotomy, lysis of adhesions, reduction of internal hernia, appendectomy POD#4 Small Bowel Obstruction, s/p Ex lap, LORRAINE, Internal reduction of hernia, appendectomy POD#4 - Stable, afebrile - Pain control : morphine, toradol prn - Diet NPO, advancement per surgery recs - Monitor NGT output - Continue IVF - Zofran prn nausea - Ascitic fluid culture showing no growth - Encourage ambulation and ISS use - Monitor for return of bowel function - Surg consulted; f/u recommendations - PT evaluation ordered Urinary Tract Infection - Rochepin discontinued Peptic Ulcer Disease - Continue Protonix Hypertension - Metoprolol 100mg daily - Cozaar 50 mg daily - Hydralazine 10mg Q6H prn - norvasc was added for better BP control Peripheral Vascular Disease - continue to monitor extremities Dyslipidemia - Atorvastatin 40 mg daily Hypokalemia and Hypomagnesemia - still low - repleted, Will monitor closely with AM labs DVT/GI prophylaxis - Heparin/Protonix Patient seen, case discussed with, and plan approved by attending physician, Dr. Stephenson. Objective - Vital Signs/Intake and Output Vital Signs (last 24 hours): Temp Pulse Resp BP Pulse Ox 98.1 F 70 20 162/78 H 99 04/27/17 08:00 04/27/17 10:09 04/27/17 08:00 04/27/17 10:09 04/27/17 08:00 Intake and Output: 04/27/17 04/27/17 06:59 18:59 Intake Total 0 1450 Output Total 500 Balance 0 950 - Medications Medications: Current Medications Amlodipine Besylate (Norvasc) 5 mg PO DAILY [facility] Last Admin: 04/27/17 10:05 Dose: 5 mg Atorvastatin Calcium (Lipitor) 40 mg PO DAILY [facility] Last Admin: 04/27/17 10:08 Dose: 40 mg Heparin Sodium (Porcine) (Heparin) 5,000 units SC Q12 JO[facility] GUADALUPE PRN Reason: Protocol Last Admin: 04/27/17 10:05 Dose: 5,000 units Hydralazine HCl (Apresoline) 10 mg IVP Q6 PRN PRN Reason: hypertension Lactated Ringer's (Lactated Ringer's) 1,000 mls @ 100 mls/hr IV .Q10H [facility] Last Admin: 04/26/17 08:08 Dose: 100 mls/hr Ketorolac Tromethamine (Toradol) 30 mg IVP Q6 PRN PRN Reason: Pain, severe (8-10) Last Admin: 04/25/17 20:43 Dose: 30 mg Ketorolac Tromethamine (Toradol) 15 mg IVP Q4 PRN PRN Reason: Pain, moderate (4-7) Last Admin: 04/23/17 00:15 Dose: 15 mg Losartan Potassium (Cozaar) 50 mg PO DAILY [facility] Last Admin: 04/27/17 10:09 Dose: 50 mg Metoprolol Succinate (Toprol Xl) 100 mg PO DAILY [facility] Last Admin: 04/27/17 10:08 Dose: 100 mg Ondansetron HCl (Zofran Inj) 4 mg IVP Q4H PRN PRN Reason: Nausea/Vomiting Last Admin: 04/26/17 09:33 Dose: 4 mg Pantoprazole Sodium (Protonix Inj) 40 mg IVP BID [facility] Last Admin: 04/27/17 10:05 Dose: 40 mg - Labs Labs: 04/27/17 07:40 04/27/17 07:40 PT 10.2 Seconds (9.9-11.8) 04/20/17 06:00 INR 0.94 (0.93-1.08) 04/20/17 06:00 APTT 24.5 Seconds (23.7-30.8) 04/20/17 06:00 <Lesley Stephenson - Last Filed: 04/27/17 14:04> Objective - Vital Signs/Intake and Output Vital Signs (last 24 hours): Temp Pulse Resp BP Pulse Ox 98.1 F 70 20 162/78 H 99 04/27/17 08:00 04/27/17 10:09 04/27/17 08:00 04/27/17 10:09 04/27/17 08:00 Intake and Output: 04/27/17 04/27/17 06:59 18:59 Intake Total 0 1450 Output Total 500 Balance 0 950 - Medications Medications: Current Medications Amlodipine Besylate (Norvasc) 5 mg PO DAILY [facility] Last Admin: 04/27/17 10:05 Dose: 5 mg Atorvastatin Calcium (Lipitor) 40 mg PO DAILY [facility] Last Admin: 04/27/17 10:08 Dose: 40 mg Heparin Sodium (Porcine) (Heparin) 5,000 units SC Q12 [facility] PRN Reason: Protocol Last Admin: 04/27/17 10:05 Dose: 5,000 units Hydralazine HCl (Apresoline) 10 mg IVP Q6 PRN PRN Reason: hypertension Potassium Chloride (Potassium Chloride 20 Meq/100 Ml) 20 meq in 100 mls @ 50 mls/hr IVPB Q2H [facility] Stop: 04/27/17 14:44 Last Admin: 04/27/17 12:31 Dose: 50 mls/hr Dextrose/Sodium Chloride (Dextrose 5%/0.45% Ns 1000 Ml) 1,000 mls @ 90 mls/hr IV .Q11H7M [facility] Last Admin: 04/27/17 12:32 Dose: 90 mls/hr Ketorolac Tromethamine (Toradol) 30 mg IVP Q6 PRN PRN Reason: Pain, severe (8-10) Last Admin: 04/25/17 20:43 Dose: 30 mg Ketorolac Tromethamine (Toradol) 15 mg IVP Q4 PRN PRN Reason: Pain, moderate (4-7) Last Admin: 04/23/17 00:15 Dose: 15 mg Losartan Potassium (Cozaar) 50 mg PO DAILY [facility] Last Admin: 04/27/17 10:09 Dose: 50 mg Metoprolol Succinate (Toprol Xl) 100 mg PO DAILY [facility] Last Admin: 04/27/17 10:08 Dose: 100 mg Ondansetron HCl (Zofran Inj) 4 mg IVP Q4H PRN PRN Reason: Nausea/Vomiting Last Admin: 04/26/17 09:33 Dose: 4 mg Pantoprazole Sodium (Protonix Inj) 40 mg IVP BID [facility] Last Admin: 04/27/17 10:05 Dose: 40 mg - Labs Labs: 04/27/17 07:40 04/27/17 07:40 PT 10.2 Seconds (9.9-11.8) 04/20/17 06:00 INR 0.94 (0.93-1.08) 04/20/17 06:00 APTT 24.5 Seconds (23.7-30.8) 04/20/17 06:00 Attending/Attestation - Attestation I have personally seen and examined this patient.: Yes I have fully participated in the care of the patient.: Yes I have reviewed all pertinent clinical information, including history, physical exam and plan: Yes Notes (Text): I have seen and examined the patient at bedside. Agree with the above note with the following additions/ exceptions: Briefly this is 77 year old female with history of HTN, peptic ulcer disease, peripheral vascular disease who was admitted with small bowel obstruction now s/p ex-lap, LORRAINE, reduction of internal hernia and appendectomy. Today is POD#5. NGT in place. Denies abdominal pain, nausea or vomiting. She has been passing flatus. Patient is hungry and wants to eat. Will discuss with surgery team regarding possible NGT removal today. Manage as per surgery. Will continue metoprolol, diovan and hydralazine prn. Norvasc was added. Upon discharge patient will follow up with Dr Greene. Dr Lesley Stephenson
[2017-04-27] MEDS: Dextrose 5%/0.45% NS 1,000 ML IV SCH (12:32)
[2017-04-28 07:05] LABS: BASO # 0.01 K/mm3 (0.0-2.0); BASO % 0.2 % (0.0-3.0); EOS % 0.7 % (1.5-5.0); GRAN # 4.27 (1.4-6.5); GRAN % 71.9 % (50.0-68.0); HEMATOCRIT 31.1 % (36.0-48.0); LYMPH # 1.3 (1.2-3.4); MEAN CELL VOLUME 94.5 fl (80.0-105.0); MEAN CORPUSCULAR HEMOGLOBIN 34.3 pg (25.0-35.0); MEAN CORPUSCULAR HGB CONC 36.3 g/dl (31.0-37.0); MEAN PLATELET VOLUME 8.9 fl (7.0-11.0); MONO # 0.4 (0.1-0.6); MONO % 6.2 % (1.0-6.0); RED CELL DISTRIBUTION WIDTH 11.5 % (11.5-14.5); WHITE BLOOD COUNT 5.9 10^3/ul (4.5-11.0)
[2017-04-28] MEDS: Dextrose 5%/0.45% NS 1,000 ML IV SCH (07:06)
[2017-04-28 07:21] LABS: ALB/GLOB RATIO 1.2 (1.1-1.8); ALKALINE PHOSPHATASE 57 U/L (38-126); ALT/SGPT 33 U/L (7-56); AST/SGOT 24 U/L (14-36); BILIRUBIN,TOTAL 0.4 mg/dL (0.2-1.3); BLOOD UREA NITROGEN 2 mg/dL (7-21); CARBON DIOXIDE 35 mmol/L (21-33); CHLORIDE 98 mmol/L (98-107); GFR AFRICAN-AMERICAN > 60; GLUCOSE,RANDOM 158 mg/dL (70-110); MAGNESIUM 1.5 mg/dL (1.7-2.2); PHOSPHOROUS 1.8 mg/dL (2.5-4.5); SODIUM 136 mmol/L (132-148); TOTAL PROTEIN 5.4 g/dL (5.8-8.3)
[2017-04-28 07:33] LABS: POTASSIUM 2.3 mmol/L (3.6-5.0)
[2017-04-28] MEDS ORDERED: Magnesium Sulfate 2 GM in Sodium Chloride 0.9% 100 ML IVPB ONE (07:41)
[2017-04-28] MEDS: Metoprolol Succinate 100 mg XL Tab PO SCH (10:47)
[2017-04-28] MEDS ORDERED: Potassium Phosphate 21 MMOLE in Sodium Chloride 0.9% 250 ML IVPB ONE (11:33)
--- NOTE | 2017-04-28 12:21 | CP.PCM.PN ---
<Alesia Younger - Last Filed: 04/28/17 12:26> Subjective - Date & Time of Evaluation Date of Evaluation: 04/28/17 Time of Evaluation: 12:18 - Subjective Subjective: Hospitalist Service Progress Note: Patient seen and examined at bedside. Per nursing no acute events overnight. Patient is doing well, pain is controlled. Tolerating diet. Patient is passing flatus and had a BM this morning. Denies nausea/vomiting, fevers, chills, headaches, dizziness, cp, palpitation, sob, urinary symptoms. Objective - Vital Signs/Intake and Output Vital Signs (last 24 hours): Temp Pulse Resp BP Pulse Ox 98.6 F 74 20 134/79 96 04/28/17 07:48 04/28/17 07:48 04/28/17 07:48 04/28/17 07:48 04/28/17 07:48 Intake and Output: 04/28/17 04/28/17 06:59 18:59 Intake Total 1170 Output Total 400 Balance 770 - Medications Medications: Current Medications Amlodipine Besylate (Norvasc) 5 mg PO DAILY [facility] Last Admin: 04/28/17 10:47 Dose: 5 mg Atorvastatin Calcium (Lipitor) 40 mg PO DAILY [facility] Last Admin: 04/28/17 10:47 Dose: 40 mg Heparin Sodium (Porcine) (Heparin) 5,000 units SC Q12 [facility] PRN Reason: Protocol Last Admin: 04/28/17 10:46 Dose: 5,000 units Hydralazine HCl (Apresoline) 10 mg IVP Q6 PRN PRN Reason: hypertension Potassium Chloride 40 meq/ (Sodium Chloride) 1,020 mls @ 100 mls/hr IV .[id number] [facility] Potassium Phosphate 21 mmole/ (Sodium Chloride) 257 mls @ 42.833 mls/hr IVPB ONCE ONE Stop: 04/28/17 17:32 Losartan Potassium (Cozaar) 50 mg PO DAILY [facility] Last Admin: 04/28/17 10:47 Dose: 50 mg Metoprolol Succinate (Toprol Xl) 100 mg PO DAILY [facility] Last Admin: 04/28/17 10:47 Dose: 100 mg Ondansetron HCl (Zofran Inj) 4 mg IVP Q4H PRN PRN Reason: Nausea/Vomiting Last Admin: 04/28/17 10:47 Dose: 4 mg Pantoprazole Sodium (Protonix Inj) 40 mg IVP BID [facility] Last Admin: 04/28/17 10:46 Dose: 40 mg - Labs Labs: 04/28/17 06:51 04/28/17 06:47 PT 10.2 Seconds (9.9-11.8) 04/20/17 06:00 INR 0.94 (0.93-1.08) 04/20/17 06:00 APTT 24.5 Seconds (23.7-30.8) 04/20/17 06:00 - Constitutional Appears: Well, Non-toxic, No Acute Distress - Head Exam Head Exam: ATRAUMATIC, NORMAL INSPECTION - Eye Exam Eye Exam: EOMI, Normal appearance Pupil Exam: NORMAL ACCOMODATION - ENT Exam ENT Exam: Mucous Membranes Moist - Neck Exam Neck Exam: Full ROM - Respiratory Exam Respiratory Exam: Clear to Ausculation Bilateral, NORMAL BREATHING PATTERN. absent: Rales, Rhonchi, Wheezes - Cardiovascular Exam Cardiovascular Exam: REGULAR RHYTHM, +S1, +S2 - GI/Abdominal Exam GI & Abdominal Exam: Soft. absent: Guarding, Rigid, Tenderness Additional comments: Incision c/d/i with dio - Rectal Exam Rectal Exam: Deferred - Extremities Exam Extremities Exam: Full ROM, Normal Inspection. absent: Calf Tenderness - Back Exam Back Exam: NORMAL INSPECTION - Neurological Exam Neurological Exam: Alert, Awake, Oriented x3 - Psychiatric Exam Psychiatric exam: Normal Affect, Normal Mood - Skin Skin Exam: Normal Color, Warm Assessment and Plan - Assessment and Plan (Free Text) Assessment: 77 year old female with past medical history of HTN, peptic ulcer diease, peripheral vascular disease presents with small bowel obstruction, S/P exploratory laparotomy, lysis of adhesions, reduction of internal hernia, appendectomy POD#3 Plan: 1. Small Bowel Obstruction, s/p Ex lap, LORRAINE, Internal reduction of hernia, appendectomy POD# - Stable, afebrile - Pain control : morphine, toradol prn - Diet CLD, advancement per surgery recs - NGT removed yesterday - Zofran prn nausea - Ascitic fluid culture showing no growth - Encourage ambulation and ISS use - Monitor for return of bowel function - Surg consulted; f/u recommendations - PT evaluation ordered 2. Peptic Ulcer Disease - Continue Protonix 3. Hypertension - BPs improving - Metoprolol 100mg daily - Cozaar 50 mg daily - Norvasc 5mg daily - Hydralazine 10mg Q6H prn 4. Peripheral Vascular Disease - Continue Aspirin 5. Dyslipidemia - Atorvastatin 40 mg daily 6. Hypokalemia/Hypomagnesemia - Potassium 2.3 today - Mag 1.5 today - Repleted, will order repeat BMP this afternoon DVT/GI prophylaxis - Heparin/Protonix Seen reviewed and discussed with attending <Yoan Hansen - Last Filed: 04/28/17 19:02> Objective - Vital Signs/Intake and Output Vital Signs (last 24 hours): Temp Pulse Resp BP Pulse Ox 98 F 78 16 125/74 95 04/28/17 16:06 04/28/17 16:06 04/28/17 16:06 04/28/17 16:06 04/28/17 16:06 Intake and Output: 04/28/17 04/29/17 18:59 06:59 Intake Total 1890 Output Total 400 Balance 1490 - Medications Medications: Current Medications Amlodipine Besylate (Norvasc) 5 mg PO DAILY [facility] Last Admin: 04/28/17 10:47 Dose: 5 mg Atorvastatin Calcium (Lipitor) 40 mg PO DAILY [facility] Last Admin: 04/28/17 10:47 Dose: 40 mg Heparin Sodium (Porcine) (Heparin) 5,000 units SC Q12 [facility] PRN Reason: Protocol Last Admin: 04/28/17 10:46 Dose: 5,000 units Hydralazine HCl (Apresoline) 10 mg IVP Q6 PRN PRN Reason: hypertension Potassium Chloride 40 meq/ (Sodium Chloride) 1,020 mls @ 100 mls/hr IV .[id number] [facility] Last Admin: 04/28/17 18:36 Dose: 100 mls/hr Losartan Potassium (Cozaar) 50 mg PO DAILY [facility] Last Admin: 04/28/17 10:47 Dose: 50 mg Metoprolol Succinate (Toprol Xl) 100 mg PO DAILY [facility] Last Admin: 04/28/17 10:47 Dose: 100 mg Ondansetron HCl (Zofran Inj) 4 mg IVP Q4H PRN PRN Reason: Nausea/Vomiting Last Admin: 04/28/17 10:47 Dose: 4 mg Pantoprazole Sodium (Protonix Inj) 40 mg IVP BID [facility] Last Admin: 04/28/17 17:32 Dose: 40 mg - Labs Labs: 04/28/17 06:51 04/28/17 15:24 PT 10.2 Seconds (9.9-11.8) 04/20/17 06:00 INR 0.94 (0.93-1.08) 04/20/17 06:00 APTT 24.5 Seconds (23.7-30.8) 04/20/17 06:00 Attending/Attestation - Attestation I have personally seen and examined this patient.: Yes I have fully participated in the care of the patient.: Yes I have reviewed all pertinent clinical information, including history, physical exam and plan: Yes Notes (Text): 04/28/17 19:00 Attending note; Patient seen and examined with the resident. Patient is a 77 year old female with history of HTN, peptic ulcer disease, peripheral vascular disease who was admitted with small bowel obstruction now s/ p ex-lap, LORRAINE, reduction of internal hernia and appendectomy. Today is POD#6. NG tube removed yesterday .tolerating liquid diet . Denies abdominal pain, nausea or vomiting. She has been passing flatus and had bowel movement today. Hypertension ; controlled. Hypokalemia/hypomagnesemia; IV supplementation given. PT evaluation requested. Possible transfer to TCU. Upon discharge patient will follow up with .
--- NOTE | 2017-04-28 12:41 | CP.PCM.PN ---
Subjective - Date & Time of Evaluation Date of Evaluation: 04/28/17 Time of Evaluation: 12:38 - Subjective Subjective: Surgery progress note for Dr. Hernandez Patient seen and examined at bedside. Patient resting comfortably in bed with no new complaints at this time. Patient says she is feeling much better with minimal abdominal pain. Patient is passing flatus but denies having a BM. She is tolerating clear liquids. She denies fever, chills, nausea, vomiting, diarrhea, constipation, SOB. Objective - Vital Signs/Intake and Output Vital Signs (last 24 hours): Temp Pulse Resp BP Pulse Ox 98.6 F 74 20 134/79 96 04/28/17 07:48 04/28/17 07:48 04/28/17 07:48 04/28/17 07:48 04/28/17 07:48 Intake and Output: 04/28/17 04/28/17 06:59 18:59 Intake Total 1170 Output Total 400 Balance 770 - Medications Medications: Current Medications Amlodipine Besylate (Norvasc) 5 mg PO DAILY [facility] Last Admin: 04/28/17 10:47 Dose: 5 mg Atorvastatin Calcium (Lipitor) 40 mg PO DAILY [facility] Last Admin: 04/28/17 10:47 Dose: 40 mg Heparin Sodium (Porcine) (Heparin) 5,000 units SC Q12 [facility] PRN Reason: Protocol Last Admin: 04/28/17 10:46 Dose: 5,000 units Hydralazine HCl (Apresoline) 10 mg IVP Q6 PRN PRN Reason: hypertension Potassium Chloride 40 meq/ (Sodium Chloride) 1,020 mls @ 100 mls/hr IV .[id number] [facility] Potassium Phosphate 21 mmole/ (Sodium Chloride) 257 mls @ 42.833 mls/hr IVPB ONCE ONE Stop: 04/28/17 17:32 Losartan Potassium (Cozaar) 50 mg PO DAILY [facility] Last Admin: 04/28/17 10:47 Dose: 50 mg Metoprolol Succinate (Toprol Xl) 100 mg PO DAILY [facility] Last Admin: 04/28/17 10:47 Dose: 100 mg Ondansetron HCl (Zofran Inj) 4 mg IVP Q4H PRN PRN Reason: Nausea/Vomiting Last Admin: 04/28/17 10:47 Dose: 4 mg Pantoprazole Sodium (Protonix Inj) 40 mg IVP BID [facility] Last Admin: 04/28/17 10:46 Dose: 40 mg - Labs Labs: 04/28/17 06:51 04/28/17 06:47 PT 10.2 Seconds (9.9-11.8) 04/20/17 06:00 INR 0.94 (0.93-1.08) 04/20/17 06:00 APTT 24.5 Seconds (23.7-30.8) 04/20/17 06:00 - Constitutional Appears: Non-toxic, No Acute Distress - Head Exam Head Exam: NORMAL INSPECTION - Eye Exam Eye Exam: EOMI - ENT Exam ENT Exam: Mucous Membranes Moist - Respiratory Exam Respiratory Exam: NORMAL BREATHING PATTERN. absent: Accessory Muscle Use, Wheezes, Respiratory Distress - Cardiovascular Exam Cardiovascular Exam: REGULAR RHYTHM. absent: Bradycardia, Tachycardia - GI/Abdominal Exam GI & Abdominal Exam: Soft. absent: Distended, Tenderness - Extremities Exam Extremities Exam: Normal Inspection - Neurological Exam Neurological Exam: Alert, Awake - Psychiatric Exam Psychiatric exam: Normal Affect, Normal Mood - Skin Skin Exam: Dry, Intact, Normal Color, Warm Assessment and Plan - Assessment and Plan (Free Text) Assessment: 77F s/p exploratory laparotomy with appendectomy, lysis of adhesions, and reduction of internal hernia POD#6 Plan: - monitor for BM - advanced to FLD - analgesics and zofran PRN - IVF - potassium replaced (2.3 today) - will discuss with Dr. David Jerome
--- NOTE | 2017-04-28 19:06 | OP ---
PROCEDURE DATE: INDICATIONS: Delbert De Leon was seen in the operating room where a successful timeout was obtained. PREOPERATIVE DIAGNOSIS: Small-bowel obstruction. POSTOPERATIVE DIAGNOSIS: Small-bowel obstruction. SURGEON: Carlos Alberto Hernandez MD. ASSISTANTS: Arron Calle MD and Jaya Zuñiga MD. FINDINGS: An internal hernia secondary to adhesions. DESCRIPTION OF PROCEDURE: An upper midline incision was made that was extended down through the belly button and the abdomen entered. There were multiple loops of bowel that were pulled out very nicely by Dr. Vaz. There clearly in the right lower quadrant was a loop that when it came out was somewhat hemorrhagic, but not infarcted and viable, using warm towels to ascertain this. Intestinal content was seen to go through this very nicely. In the right lower quadrant by the cecum was a band that was the source for this obstruction. It was easily lysed under direct vision. The appendix was then pulled up, the mesentery taken and the base of the appendix was doubly clamped and tied, divided and removed. The base was anteverted with a suture of Vicryl. The cecum was then well taken care of. The abdomen was then closed, irrigated and dried. The incision was closed with running #1 PDS above and below and tied in the middle, the skin with dio. The patient was taken to recovery room in good condition after sponge and needle counts were declared correct. Carlos Alberto Hernandez MD
[2017-04-29 07:33] LABS: HEMATOCRIT 31.3 % (36.0-48.0); MEAN CELL VOLUME 98.1 fl (80.0-105.0); MEAN CORPUSCULAR HEMOGLOBIN 34.2 pg (25.0-35.0); MEAN CORPUSCULAR HGB CONC 34.8 g/dl (31.0-37.0); MEAN PLATELET VOLUME 9.1 fl (7.0-11.0); RED CELL DISTRIBUTION WIDTH 11.9 % (11.5-14.5); WHITE BLOOD COUNT 5.7 10^3/ul (4.5-11.0)
[2017-04-29 07:44] LABS: BLOOD UREA NITROGEN 2 mg/dL (7-21); CALCIUM 9.4 mg/dL (8.4-10.5); CARBON DIOXIDE 30 mmol/L (21-33); CHLORIDE 107 mmol/L (95-110); GFR AFRICAN-AMERICAN > 60; GLUCOSE,RANDOM 97 mg/dL (70-110); MAGNESIUM 1.8 mg/dL (1.7-2.2); POTASSIUM 4.6 mmol/L (3.6-5.0); SODIUM 139 mmol/L (132-148)
[2017-04-29] MEDS: Metoprolol Succinate 100 mg XL Tab PO SCH (10:15)
--- NOTE | 2017-04-29 11:13 | CP.PCM.PN ---
Subjective - Date & Time of Evaluation Date of Evaluation: 04/29/17 Time of Evaluation: 11:09 - Subjective Subjective: Surgery progress note for Dr. Hernandez Patient seen and examined at bedside. Patient resting comfortably in bed with no new complaints at this time. Patient says she is feeling much better today. Patient says she had a BM this morning. She is tolerating her diet. She denies fever, chills, nausea, vomiting, diarrhea, constipation, SOB. Objective - Vital Signs/Intake and Output Vital Signs (last 24 hours): Temp Pulse Resp BP Pulse Ox 98 F 68 20 144/82 99 04/29/17 08:14 04/29/17 10:15 04/29/17 08:14 04/29/17 10:15 04/29/17 08:14 Intake and Output: 04/29/17 04/29/17 06:59 18:59 Intake Total 2480 Output Total 400 Balance 2080 - Medications Medications: Current Medications Amlodipine Besylate (Norvasc) 5 mg PO DAILY [facility] Last Admin: 04/29/17 10:15 Dose: 5 mg Atorvastatin Calcium (Lipitor) 40 mg PO DAILY [facility] Last Admin: 04/29/17 10:15 Dose: 40 mg Heparin Sodium (Porcine) (Heparin) 5,000 units SC Q12 [facility] PRN Reason: Protocol Last Admin: 04/29/17 10:16 Dose: 5,000 units Hydralazine HCl (Apresoline) 10 mg IVP Q6 PRN PRN Reason: hypertension Losartan Potassium (Cozaar) 50 mg PO DAILY [facility] Last Admin: 04/29/17 10:14 Dose: 50 mg Metoprolol Succinate (Toprol Xl) 100 mg PO DAILY [facility] Last Admin: 04/29/17 10:15 Dose: 100 mg Ondansetron HCl (Zofran Inj) 4 mg IVP Q4H PRN PRN Reason: Nausea/Vomiting Last Admin: 04/28/17 10:47 Dose: 4 mg Pantoprazole Sodium (Protonix Inj) 40 mg IVP BID [facility] Last Admin: 04/29/17 10:14 Dose: 40 mg - Labs Labs: 04/29/17 07:27 04/29/17 07:27 PT 10.2 Seconds (9.9-11.8) 04/20/17 06:00 INR 0.94 (0.93-1.08) 04/20/17 06:00 APTT 24.5 Seconds (23.7-30.8) 04/20/17 06:00 - Constitutional Appears: Non-toxic, No Acute Distress - Head Exam Head Exam: NORMAL INSPECTION - Eye Exam Eye Exam: EOMI - ENT Exam ENT Exam: Mucous Membranes Moist - Respiratory Exam Respiratory Exam: NORMAL BREATHING PATTERN. absent: Accessory Muscle Use, Wheezes, Respiratory Distress - Cardiovascular Exam Cardiovascular Exam: REGULAR RHYTHM. absent: Bradycardia, Tachycardia - GI/Abdominal Exam GI & Abdominal Exam: Soft. absent: Distended, Tenderness Additional comments: incision clean, dry, and intact with dio in place - Extremities Exam Extremities Exam: absent: Calf Tenderness - Neurological Exam Neurological Exam: Alert, Awake - Psychiatric Exam Psychiatric exam: Normal Affect, Normal Mood - Skin Skin Exam: Dry, Normal Color, Warm Assessment and Plan - Assessment and Plan (Free Text) Assessment: 77F s/p exploratory laparotomy with appendectomy, lysis of adhesions, and reduction of internal hernia POD#7 Plan: - advanced to regular diet - patient clear for discharge from a surgical perspective if tolerating diet - f/u with Dr. Hernandez in office in 1 week - will discuss with Dr. David Jerome, PGY1
--- NOTE | 2017-04-29 15:16 | CP.PCM.PN ---
<Alesia Younger - Last Filed: 04/29/17 15:21> Subjective - Date & Time of Evaluation Date of Evaluation: 04/29/17 Time of Evaluation: 15:14 - Subjective Subjective: Hospitalist Service Progress Note: Patient seen and examined at bedside. Per nursing no acute events overnight. Patient is doing well, pain is controlled. Not requiring pain medication. Patient is ambulating and tolerating diet. Reports passing flatus and having BMs. No complaints at this time. Denies fevers, chills, headaches, dizziness, cp , palpitations, sob, urinary symptoms. Objective - Vital Signs/Intake and Output Vital Signs (last 24 hours): Temp Pulse Resp BP Pulse Ox 98 F 68 20 144/82 99 04/29/17 08:14 04/29/17 10:15 04/29/17 08:14 04/29/17 10:15 04/29/17 08:14 Intake and Output: 04/29/17 04/29/17 06:59 18:59 Intake Total 2480 640 Output Total 400 Balance 2080 640 - Medications Medications: Current Medications Amlodipine Besylate (Norvasc) 5 mg PO DAILY [facility] Last Admin: 04/29/17 10:15 Dose: 5 mg Atorvastatin Calcium (Lipitor) 40 mg PO DAILY [facility] Last Admin: 04/29/17 10:15 Dose: 40 mg Heparin Sodium (Porcine) (Heparin) 5,000 units SC Q12 [facility] PRN Reason: Protocol Last Admin: 04/29/17 10:16 Dose: 5,000 units Hydralazine HCl (Apresoline) 10 mg IVP Q6 PRN PRN Reason: hypertension Losartan Potassium (Cozaar) 50 mg PO DAILY [facility] Last Admin: 04/29/17 10:14 Dose: 50 mg Metoprolol Succinate (Toprol Xl) 100 mg PO DAILY [facility] Last Admin: 04/29/17 10:15 Dose: 100 mg Ondansetron HCl (Zofran Inj) 4 mg IVP Q4H PRN PRN Reason: Nausea/Vomiting Last Admin: 04/28/17 10:47 Dose: 4 mg Pantoprazole Sodium (Protonix Inj) 40 mg IVP BID [facility] Last Admin: 04/29/17 10:14 Dose: 40 mg - Labs Labs: 04/29/17 07:27 04/29/17 07:27 PT 10.2 Seconds (9.9-11.8) 04/20/17 06:00 INR 0.94 (0.93-1.08) 04/20/17 06:00 APTT 24.5 Seconds (23.7-30.8) 04/20/17 06:00 - Constitutional Appears: Well, No Acute Distress - Head Exam Head Exam: ATRAUMATIC, NORMAL INSPECTION - Eye Exam Eye Exam: EOMI, Normal appearance Pupil Exam: NORMAL ACCOMODATION - ENT Exam ENT Exam: Mucous Membranes Moist - Neck Exam Neck Exam: Full ROM - Respiratory Exam Respiratory Exam: Clear to Ausculation Bilateral, NORMAL BREATHING PATTERN. absent: Rales, Rhonchi, Wheezes - Cardiovascular Exam Cardiovascular Exam: REGULAR RHYTHM, +S1, +S2 - GI/Abdominal Exam GI & Abdominal Exam: Soft, Normal Bowel Sounds. absent: Guarding, Rigid Additional comments: Incision c/d/i with toyr - Extremities Exam Extremities Exam: Full ROM, Normal Inspection. absent: Calf Tenderness - Back Exam Back Exam: NORMAL INSPECTION - Neurological Exam Neurological Exam: Alert, Awake, Oriented x3 - Psychiatric Exam Psychiatric exam: Normal Affect, Normal Mood - Skin Skin Exam: Dry, Normal Color, Warm Assessment and Plan - Assessment and Plan (Free Text) Assessment: 77 year old female with past medical history of HTN, peptic ulcer diease, peripheral vascular disease presents with small bowel obstruction, S/P exploratory laparotomy, lysis of adhesions, reduction of internal hernia, appendectomy POD#7 Plan: 1. Small Bowel Obstruction, s/p Ex lap, LORRAINE, Internal reduction of hernia, appendectomy POD#7 - Stable, afebrile - Surgery to advance to regular diet today - Zofran prn nausea - Ascitic fluid culture showing no growth - Encourage ambulation and ISS use - Tory to be removed after 10-14 days - Surg consulted; f/u recommendations - PT evaluation recommending TCU for disposition, awaiting authorization 2. Peptic Ulcer Disease - Continue Protonix 3. Hypertension - BPs improving - Metoprolol 100mg daily - Cozaar 50 mg daily - Norvasc 5mg daily - Hydralazine 10mg Q6H prn 4. Peripheral Vascular Disease - Continue Aspirin 5. Dyslipidemia - Atorvastatin 40 mg daily 6. Hypokalemia/Hypomagnesemia - Potassium 4.6 today - Mag 1.8 today - Continue to monitor DVT/GI prophylaxis - Heparin/Protonix Seen reviewed and discussed with attending <Yoan Hansen - Last Filed: 04/29/17 17:03> Objective - Vital Signs/Intake and Output Vital Signs (last 24 hours): Temp Pulse Resp BP Pulse Ox 99.2 F 86 17 137/72 99 04/29/17 16:24 04/29/17 16:24 04/29/17 16:24 04/29/17 16:24 04/29/17 16:24 Intake and Output: 04/29/17 04/29/17 06:59 18:59 Intake Total 2480 640 Output Total 400 Balance 2080 640 - Medications Medications: Current Medications Amlodipine Besylate (Norvasc) 5 mg PO DAILY [facility] Last Admin: 04/29/17 10:15 Dose: 5 mg Atorvastatin Calcium (Lipitor) 40 mg PO DAILY [facility] Last Admin: 04/29/17 10:15 Dose: 40 mg Heparin Sodium (Porcine) (Heparin) 5,000 units SC Q12 [facility] PRN Reason: Protocol Last Admin: 04/29/17 10:16 Dose: 5,000 units Hydralazine HCl (Apresoline) 10 mg IVP Q6 PRN PRN Reason: hypertension Losartan Potassium (Cozaar) 50 mg PO DAILY [facility] Last Admin: 04/29/17 10:14 Dose: 50 mg Metoprolol Succinate (Toprol Xl) 100 mg PO DAILY [facility] Last Admin: 04/29/17 10:15 Dose: 100 mg Ondansetron HCl (Zofran Inj) 4 mg IVP Q4H PRN PRN Reason: Nausea/Vomiting Last Admin: 04/28/17 10:47 Dose: 4 mg Pantoprazole Sodium (Protonix Inj) 40 mg IVP BID [facility] Last Admin: 04/29/17 10:14 Dose: 40 mg - Labs Labs: 04/29/17 07:27 04/29/17 07:27 PT 10.2 Seconds (9.9-11.8) 04/20/17 06:00 INR 0.94 (0.93-1.08) 04/20/17 06:00 APTT 24.5 Seconds (23.7-30.8) 04/20/17 06:00 Attending/Attestation - Attestation I have personally seen and examined this patient.: Yes I have fully participated in the care of the patient.: Yes I have reviewed all pertinent clinical information, including history, physical exam and plan: Yes Notes (Text): 04/29/17 17:00 Attending note; Patient seen and examined with the resident. Patient is a 77 year old female with history of HTN, peptic ulcer disease, peripheral vascular disease who was admitted with small bowel obstruction now s/ p ex-lap, LORRAINE, reduction of internal hernia and appendectomy. Today is POD#7. tolerating regular diet. Denies abdominal pain, nausea or vomiting. had bowel movement today. Hypokalemia/hypomagnesemia; resolved. PT evaluation appreciated. TCU recommended. awaiting for insurance authorization. Upon discharge patient will follow up with . case discussed with PMD in detail. 04/29/17 17:02
[2017-04-30] MEDS: Pantoprazole 40 mg EC Tab PO SCH ×2 (06:19→17:00)
[2017-04-30 08:18] LABS: BASO # 0.02 K/mm3 (0.0-2.0); BASO % 0.3 % (0.0-3.0); EOS % 0.5 % (1.5-5.0); GRAN # 4.44 (1.4-6.5); GRAN % 67.4 % (50.0-68.0); HEMATOCRIT 30.5 % (36.0-48.0); LYMPH # 1.7 (1.2-3.4); LYMPH % 25.4 % (22.0-35.0); MEAN CORPUSCULAR HEMOGLOBIN 34.7 pg (25.0-35.0); MEAN CORPUSCULAR HGB CONC 35.1 g/dl (31.0-37.0); MEAN PLATELET VOLUME 8.6 fl (7.0-11.0); MONO # 0.4 (0.1-0.6); MONO % 6.4 % (1.0-6.0); RED CELL DISTRIBUTION WIDTH 12.1 % (11.5-14.5); WHITE BLOOD COUNT 6.6 10^3/ul (4.5-11.0)
[2017-04-30 08:31] LABS: ALB/GLOB RATIO 1.3 (1.1-1.8); ALKALINE PHOSPHATASE 66 U/L (38-126); ALT/SGPT 41 U/L (7-56); AST/SGOT 30 U/L (14-36); BILIRUBIN,TOTAL 0.3 mg/dL (0.2-1.3); BLOOD UREA NITROGEN 3 mg/dL (7-21); CALCIUM 9.8 mg/dL (8.4-10.5); CARBON DIOXIDE 31 mmol/L (21-33); CHLORIDE 103 mmol/L (98-107); GFR AFRICAN-AMERICAN > 60; GLUCOSE,RANDOM 94 mg/dL (70-110); MAGNESIUM 1.6 mg/dL (1.7-2.2); PHOSPHOROUS 2.8 mg/dL (2.5-4.5); POTASSIUM 3.9 mmol/L (3.6-5.0); SODIUM 138 mmol/L (132-148); TOTAL PROTEIN 5.4 g/dL (5.8-8.3)
[2017-04-30] MEDS ORDERED: Magnesium Sulfate 2 GM in Sodium Chloride 0.9% 100 ML IVPB ONE (09:20)
[2017-04-30] MEDS: Metoprolol Succinate 100 mg XL Tab PO SCH (09:33)
--- NOTE | 2017-04-30 11:02 | CP.PCM.PN ---
Subjective - Date & Time of Evaluation Date of Evaluation: 04/30/17 Time of Evaluation: 10:58 - Subjective Subjective: Surgery progress note for Dr. Hernandez Patient seen and examined at bedside. Patient resting comfortably in bedside recliner with no new complaints at this time. Patient is having regular BMs and says she is tolerating her diet. She denies fever, chills, nausea, vomiting, diarrhea, constipation, SOB. Objective - Vital Signs/Intake and Output Vital Signs (last 24 hours): Temp Pulse Resp BP Pulse Ox 98.3 F 78 18 156/69 H 96 04/30/17 00:00 04/30/17 09:36 04/30/17 00:00 04/30/17 09:36 04/30/17 00:00 Intake and Output: 04/30/17 04/30/17 06:59 18:59 Intake Total 960 Balance 960 - Medications Medications: Current Medications Amlodipine Besylate (Norvasc) 5 mg PO DAILY [facility] Last Admin: 04/30/17 09:36 Dose: 5 mg Atorvastatin Calcium (Lipitor) 40 mg PO DAILY [facility] Last Admin: 04/30/17 09:36 Dose: 40 mg Heparin Sodium (Porcine) (Heparin) 5,000 units SC Q12 [facility] PRN Reason: Protocol Last Admin: 04/30/17 09:37 Dose: 5,000 units Hydralazine HCl (Apresoline) 10 mg IVP Q6 PRN PRN Reason: hypertension Losartan Potassium (Cozaar) 50 mg PO DAILY [facility] Last Admin: 04/30/17 09:35 Dose: 50 mg Metoprolol Succinate (Toprol Xl) 100 mg PO DAILY [facility] Last Admin: 04/30/17 09:33 Dose: 100 mg Ondansetron HCl (Zofran Inj) 4 mg IVP Q4H PRN PRN Reason: Nausea/Vomiting Last Admin: 04/28/17 10:47 Dose: 4 mg Pantoprazole Sodium (Protonix Ec Tab) 40 mg PO 0600,1600 [facility] Last Admin: 04/30/17 06:19 Dose: 40 mg - Labs Labs: 04/30/17 08:10 04/30/17 08:10 PT 10.2 Seconds (9.9-11.8) 04/20/17 06:00 INR 0.94 (0.93-1.08) 04/20/17 06:00 APTT 24.5 Seconds (23.7-30.8) 04/20/17 06:00 - Constitutional Appears: Non-toxic, No Acute Distress - Head Exam Head Exam: NORMAL INSPECTION - Eye Exam Eye Exam: EOMI - ENT Exam ENT Exam: Mucous Membranes Moist - Respiratory Exam Respiratory Exam: NORMAL BREATHING PATTERN. absent: Accessory Muscle Use, Wheezes, Respiratory Distress - Cardiovascular Exam Cardiovascular Exam: REGULAR RHYTHM. absent: Bradycardia, Tachycardia - GI/Abdominal Exam GI & Abdominal Exam: Soft. absent: Distended, Tenderness Additional comments: incision clean, dry, intact with dio in place - Extremities Exam Extremities Exam: Normal Inspection - Neurological Exam Neurological Exam: Alert, Awake - Psychiatric Exam Psychiatric exam: Normal Affect, Normal Mood - Skin Skin Exam: Dry, Intact, Normal Color, Warm Assessment and Plan - Assessment and Plan (Free Text) Assessment: 77F s/p exploratory laparotomy with appendectomy, lysis of adhesions, and reduction of internal hernia POD#8 Plan: - patient clear for discharge from a surgical perspective - f/u with Dr. Hernandez in office in 1 week - will discuss with Dr. David Jerome, PGY1
--- NOTE | 2017-04-30 11:07 | CP.PCM.DIS ---
<Alesia Younger - Last Filed: 04/30/17 11:33> Provider - Provider Date of Admission: 04/20/17 10:45 Attending physician: Yoan Hansen MD Primary care physician: Kamlesh Fitch MD Consults: Surgery: David GI: Jose Angel Time Spent in preparation of Discharge (in minutes): 32 Hospital Course - Lab Results Lab Results: Micro Results 04/22/17 14:50 Ascitic Fluid Gram Stain - Final 04/22/17 14:50 Ascitic Fluid Body Fluid Culture - Final No growth. 04/25/17 04:45 Urine Urine Culture - Final No Growth (<1,000 CFU/ML) Most Recent Lab Values WBC 6.6 10^3/ul (4.5-11.0) 04/30/17 08:10 RBC 3.08 10^6/uL (3.5-6.1) L 04/30/17 08:10 Hgb 10.7 g/dL (12.0-16.0) L 04/30/17 08:10 Hct 30.5 % (36.0-48.0) L 04/30/17 08:10 MCV 99.0 fl (80.0-105.0) 04/30/17 08:10 MCH 34.7 pg (25.0-35.0) 04/30/17 08:10 MCHC 35.1 g/dl (31.0-37.0) 04/30/17 08:10 RDW 12.1 % (11.5-14.5) 04/30/17 08:10 Plt Count 325 10^3/uL (120.0-450.0) 04/30/17 08:10 MPV 8.6 fl (7.0-11.0) 04/30/17 08:10 Gran % 67.4 % (50.0-68.0) 04/30/17 08:10 Lymph % (Auto) 25.4 % (22.0-35.0) 04/30/17 08:10 [place] % (Auto) 6.4 % (1.0-6.0) H 04/30/17 08:10 Eos % (Auto) 0.5 % (1.5-5.0) L 04/30/17 08:10 Baso % (Auto) 0.3 % (0.0-3.0) 04/30/17 08:10 Gran # 4.44 (1.4-6.5) 04/30/17 08:10 Lymph # 1.7 (1.2-3.4) 04/30/17 08:10 [place] # 0.4 (0.1-0.6) 04/30/17 08:10 Eos # 0.0 (0.0-0.7) 04/30/17 08:10 Baso # 0.02 K/mm3 (0.0-2.0) 04/30/17 08:10 PT 10.2 Seconds (9.9-11.8) 04/20/17 06:00 INR 0.94 (0.93-1.08) 04/20/17 06:00 APTT 24.5 Seconds (23.7-30.8) 04/20/17 06:00 Sodium 138 mmol/L (132-148) 04/30/17 08:10 Potassium 3.9 mmol/L (3.6-5.0) 04/30/17 08:10 Chloride 103 mmol/L (98-107) 04/30/17 08:10 Carbon Dioxide 31 mmol/L (21-33) 04/30/17 08:10 Anion Gap 8 (10-20) L 04/30/17 08:10 BUN 3 mg/dL (7-21) L 04/30/17 08:10 Creatinine 0.5 mg/dL (0.7-1.2) L 04/30/17 08:10 Est GFR ( Amer) > 60 04/30/17 08:10 Est GFR (Non-Af Amer) > 60 04/30/17 08:10 Random Glucose 94 mg/dL (70-110) 04/30/17 08:10 Hemoglobin A1c 5.5 % (4.2-6.5) 04/20/17 06:00 Calcium 9.8 mg/dL (8.4-10.5) 04/30/17 08:10 Phosphorus 2.8 mg/dL (2.5-4.5) 04/30/17 08:10 Magnesium 1.6 mg/dL (1.7-2.2) L 04/30/17 08:10 Total Bilirubin 0.3 mg/dL (0.2-1.3) 04/30/17 08:10 AST 30 U/L (14-36) 04/30/17 08:10 ALT 41 U/L (7-56) 04/30/17 08:10 Alkaline Phosphatase 66 U/L (38-126) 04/30/17 08:10 Lactate Dehydrogenase 550 U/L (333-699) 04/19/17 17:05 Total Creatine Kinase 41 U/L (35-230) 04/19/17 17:05 Troponin I < 0.01 ng/mL 04/19/17 17:05 Total Protein 5.4 g/dL (5.8-8.3) L 04/30/17 08:10 Albumin 3.0 g/dL (3.0-4.8) 04/30/17 08:10 Globulin 2.4 gm/dL 04/30/17 08:10 Albumin/Globulin Ratio 1.3 (1.1-1.8) 04/30/17 08:10 Lipase 67 U/L (23-300) 04/19/17 17:05 Urine Color Yellow (YELLOW) 04/19/17 17:26 Urine Appearance Clear (CLEAR) 04/19/17 17:26 Urine pH 6.0 (4.7-8.0) 04/19/17 17:26 Ur Specific [place] 1.020 (1.005-1.035) 04/19/17 17:26 Urine Protein Negative mg/dL (<30 mg/dL) 04/19/17 17:26 Urine Glucose (UA) Negative mg/dL (NEGATIVE) 04/19/17 17:26 Urine Ketones Negative mg/dL (NEGATIVE) 04/19/17 17:26 Urine Blood Small (NEGATIVE) H 04/19/17 17:26 Urine Nitrate Negative (NEGATIVE) 04/19/17 17:26 Urine Bilirubin Negative (NEGATIVE) 04/19/17 17:26 Urine Urobilinogen 0.2 E.U./dL (<1 E.U./dL) 04/19/17 17:26 Ur Leukocyte Esterase Small Ines/uL (NEGATIVE) H 04/19/17 17:26 Urine RBC 5 - 10 /hpf (0-2) 04/19/17 17:26 Urine WBC 10 - 15 /hpf (0-6) 04/19/17 17:26 Ur Epithelial Cells Many /hpf (0-5) 04/19/17 17:26 Amorphous Sediment Small 04/19/17 17:26 Urine Bacteria Many (NEG) 04/19/17 17:26 Urine Other Uyeast 04/19/17 17:26 Urine Opiates Screen Negative (NEGATIVE) 04/20/17 00:18 Urine Methadone Screen Negative (NEGATIVE) 04/20/17 00:18 Ur Barbiturates Screen Negative (NEGATIVE) 04/20/17 00:18 Ur Phencyclidine Scrn Negative (NEGATIVE) 04/20/17 00:18 Ur Amphetamines Screen Negative (NEGATIVE) 04/20/17 00:18 U Benzodiazepines Scrn Negative (NEGATIVE) 04/20/17 00:18 U Oth Cocaine Metabols Negative (NEGATIVE) 04/20/17 00:18 U Cannabinoids Screen Positive (NEGATIVE) H 04/20/17 00:18 Alcohol, Quantitative < 10 mg/dL (0-10) 04/19/17 17:05 - Hospital Course Hospital Course: Patient is a 77 year old female with history of HTN, peptic ulcer disease, peripheral vascular disease who was admitted with small bowel obstruction. CT abd/pelvis showed dilated fluid-filled loops of small bowel with abdominal/ pelvic ascites (see full report). Patient was made NPO, NGT was placed. GI and general surgery were on consult. Patient symptoms did not improve with conservative management. Patient was taken for surgery and tolerated procedure well. Patient is now s/p ex-lap, LORRAINE, reduction of internal hernia and appendectomy. Today is POD#8. Patient recovering well. Bowel function returned. Patient is ambulating and tolerating diet. Denies any abdominal pain. Patient had a positive UA on admission, was started on IV Rocephin empirically. Initial urine culture was contaminant, repeat urine culture was negative. For hypertension, patient was on Metoprolol, Norvasc, and Cozaar. Labs and electrolytes were monitored and repleted as needed. Hgb stable. Patient was evaluated by physical therapy. Upon discharge patient will follow up with PMD, Dr Greene and Dr Hernandez for post op check and staple removal. All medications were reconciled. Questions and concerns were addressed. Instructed patient to avoid heavy lifting and she can take tylenol or motrin as needed for pain. Discharge Exam - Head Exam Head Exam: NORMAL INSPECTION - Eye Exam Eye Exam: EOMI, Normal appearance Pupil Exam: NORMAL ACCOMODATION - ENT Exam ENT Exam: Mucous Membranes Moist - Neck Exam Neck exam: Full Rom - Respiratory Exam Respiratory Exam: Clear to PA & Lateral, UNREMARKABLE. absent: Rales, Rhonchi, Wheezes - Cardiovascular Exam Cardiovascular Exam: REGULAR RHYTHM, +S1, +S2 - GI/Abdominal Exam GI & Abdominal Exam: Normal Bowel Sounds, Soft. absent: Guarding, Rebound, Rigid Additional comments: Incision c/d/i with dio - Rectal Exam Rectal Exam: Deferred - Extremities Exam Extremities exam: full ROM, normal inspection - Back Exam Back exam: NORMAL INSPECTION - Neurological Exam Neurological exam: Abnormal Gait (Ambulating with a cane), Alert, Oriented x3 - Psychiatric Exam Psychiatric exam: Normal Affect, Normal Mood - Skin Skin Exam: Dry, Normal Color, Warm Discharge Plan - Discharge Medications Prescriptions: amLODIPine [Norvasc] 5 mg PO DAILY #30 tab Losartan [Cozaar] 50 mg PO DAILY #30 tab Metoprolol Succinate 100 mg PO DAILY #30 tab.er.24h - Follow Up Plan Condition: FAIR Disposition: HOME/ ROUTINE Instructions: Open Appendectomy (DC), Exploratory Laparotomy (DC), Lysis of Abdominal Adhesions (DC), Acute Nausea and Vomiting (DC), Acute Abdominal Pain ( DC), Bowel Obstruction (DC) Additional Instructions: 1. Patient to continue medications as prescribed 2. F/U with General Surgery within 1 week for staple removal 3. F/U with PMD within 1 week 4. No heavy lifting, Tylenol/motrin prn pain 5. Recommending outpatient PT 3-5x/week 6. If experiencing fevers, N/V, abdominal pain, worsening of symptoms return to nearest ER Referrals: Kamlesh Fitch MD [Primary Care Provider] - Carlos Alberto Hernandez MD [Staff Provider] - <Yoan Hansen - Last Filed: 04/30/17 16:11> Provider - Provider Date of Admission: 04/20/17 10:45 Attending physician: Yoan Hansen MD Primary care physician: Kamlesh Fitch MD Hospital Course - Lab Results Lab Results: Micro Results 04/22/17 14:50 Ascitic Fluid Gram Stain - Final 04/22/17 14:50 Ascitic Fluid Body Fluid Culture - Final No growth. 04/25/17 04:45 Urine Urine Culture - Final No Growth (<1,000 CFU/ML) Most Recent Lab Values WBC 6.6 10^3/ul (4.5-11.0) 04/30/17 08:10 RBC 3.08 10^6/uL (3.5-6.1) L 04/30/17 08:10 Hgb 10.7 g/dL (12.0-16.0) L 04/30/17 08:10 Hct 30.5 % (36.0-48.0) L 04/30/17 08:10 MCV 99.0 fl (80.0-105.0) 04/30/17 08:10 MCH 34.7 pg (25.0-35.0) 04/30/17 08:10 MCHC 35.1 g/dl (31.0-37.0) 04/30/17 08:10 RDW 12.1 % (11.5-14.5) 04/30/17 08:10 Plt Count 325 10^3/uL (120.0-450.0) 04/30/17 08:10 MPV 8.6 fl (7.0-11.0) 04/30/17 08:10 Gran % 67.4 % (50.0-68.0) 04/30/17 08:10 Lymph % (Auto) 25.4 % (22.0-35.0) 04/30/17 08:10 Baldwin % (Auto) 6.4 % (1.0-6.0) H 04/30/17 08:10 Eos % (Auto) 0.5 % (1.5-5.0) L 04/30/17 08:10 Baso % (Auto) 0.3 % (0.0-3.0) 04/30/17 08:10 Gran # 4.44 (1.4-6.5) 04/30/17 08:10 Lymph # 1.7 (1.2-3.4) 04/30/17 08:10 Baldwin # 0.4 (0.1-0.6) 04/30/17 08:10 Eos # 0.0 (0.0-0.7) 04/30/17 08:10 Baso # 0.02 K/mm3 (0.0-2.0) 04/30/17 08:10 PT 10.2 Seconds (9.9-11.8) 04/20/17 06:00 INR 0.94 (0.93-1.08) 04/20/17 06:00 APTT 24.5 Seconds (23.7-30.8) 04/20/17 06:00 Sodium 138 mmol/L (132-148) 04/30/17 08:10 Potassium 3.9 mmol/L (3.6-5.0) 04/30/17 08:10 Chloride 103 mmol/L (98-107) 04/30/17 08:10 Carbon Dioxide 31 mmol/L (21-33) 04/30/17 08:10 Anion Gap 8 (10-20) L 04/30/17 08:10 BUN 3 mg/dL (7-21) L 04/30/17 08:10 Creatinine 0.5 mg/dL (0.7-1.2) L 04/30/17 08:10 Est GFR ( Amer) > 60 04/30/17 08:10 Est GFR (Non-Af Amer) > 60 04/30/17 08:10 Random Glucose 94 mg/dL (70-110) 04/30/17 08:10 Hemoglobin A1c 5.5 % (4.2-6.5) 04/20/17 06:00 Calcium 9.8 mg/dL (8.4-10.5) 04/30/17 08:10 Phosphorus 2.8 mg/dL (2.5-4.5) 04/30/17 08:10 Magnesium 1.6 mg/dL (1.7-2.2) L 04/30/17 08:10 Total Bilirubin 0.3 mg/dL (0.2-1.3) 04/30/17 08:10 AST 30 U/L (14-36) 04/30/17 08:10 ALT 41 U/L (7-56) 04/30/17 08:10 Alkaline Phosphatase 66 U/L (38-126) 04/30/17 08:10 Lactate Dehydrogenase 550 U/L (333-699) 04/19/17 17:05 Total Creatine Kinase 41 U/L (35-230) 04/19/17 17:05 Troponin I < 0.01 ng/mL 04/19/17 17:05 Total Protein 5.4 g/dL (5.8-8.3) L 04/30/17 08:10 Albumin 3.0 g/dL (3.0-4.8) 04/30/17 08:10 Globulin 2.4 gm/dL 04/30/17 08:10 Albumin/Globulin Ratio 1.3 (1.1-1.8) 04/30/17 08:10 Lipase 67 U/L (23-300) 04/19/17 17:05 Urine Color Yellow (YELLOW) 04/19/17 17:26 Urine Appearance Clear (CLEAR) 04/19/17 17:26 Urine pH 6.0 (4.7-8.0) 04/19/17 17:26 Ur Specific [place] 1.020 (1.005-1.035) 04/19/17 17:26 Urine Protein Negative mg/dL (<30 mg/dL) 04/19/17 17:26 Urine Glucose (UA) Negative mg/dL (NEGATIVE) 04/19/17 17:26 Urine Ketones Negative mg/dL (NEGATIVE) 04/19/17 17:26 Urine Blood Small (NEGATIVE) H 04/19/17 17:26 Urine Nitrate Negative (NEGATIVE) 04/19/17 17:26 Urine Bilirubin Negative (NEGATIVE) 04/19/17 17:26 Urine Urobilinogen 0.2 E.U./dL (<1 E.U./dL) 04/19/17 17:26 Ur Leukocyte Esterase Small Ines/uL (NEGATIVE) H 04/19/17 17:26 Urine RBC 5 - 10 /hpf (0-2) 04/19/17 17:26 Urine WBC 10 - 15 /hpf (0-6) 04/19/17 17:26 Ur Epithelial Cells Many /hpf (0-5) 04/19/17 17:26 Amorphous Sediment Small 04/19/17 17:26 Urine Bacteria Many (NEG) 04/19/17 17:26 Urine Other Uyeast 04/19/17 17:26 Urine Opiates Screen Negative (NEGATIVE) 04/20/17 00:18 Urine Methadone Screen Negative (NEGATIVE) 04/20/17 00:18 Ur Barbiturates Screen Negative (NEGATIVE) 04/20/17 00:18 Ur Phencyclidine Scrn Negative (NEGATIVE) 04/20/17 00:18 Ur Amphetamines Screen Negative (NEGATIVE) 04/20/17 00:18 U Benzodiazepines Scrn Negative (NEGATIVE) 04/20/17 00:18 U Oth Cocaine Metabols Negative (NEGATIVE) 04/20/17 00:18 U Cannabinoids Screen Positive (NEGATIVE) H 04/20/17 00:18 Alcohol, Quantitative < 10 mg/dL (0-10) 04/19/17 17:05 Attending/Attestation - Attestation I have personally seen and examined this patient.: Yes I have fully participated in the care of the patient.: Yes I have reviewed all pertinent clinical information, including history, physical exam and plan: Yes Notes (Text): 04/30/17 16:10 Attending note; Patient seen and examined with the resident. Patient is a 77 year old female with history of HTN, peptic ulcer disease, peripheral vascular disease who was admitted with small bowel obstruction now s/ p ex-lap, LORRAINE, reduction of internal hernia and appendectomy. Today is POD#8. tolerating regular diet. Denies abdominal pain, nausea or vomiting. had bowel movement today. Patient will follow-up with Dr. Hernandez in one week for dio removal. PT evaluation appreciated. Patient will be discharged home today. Upon discharge patient will follow up with . case discussed with PMD in detail. Diagnosis; Status post exploratory laparoscopy Lysis of adhesions/appendectomy Hypertension
[2017-04-30 12:22] VITALS: RESP 20
[2017-04-30 16:24] VITALS: BP 152/82; PULSE 89; TEMP 98.1; O2SAT 98
== END 2017-04-30 18:34 | DRG 336 ==
LOC: ED 16:22 → ERH 18:25 → 5RSO 20:11 → OBSVTOIN 04-20 10:45
PROVIDERS: ADMIT Internal Medicine; ATTEND Internal Medicine
PROC: 0D9670Z Drainage of Stomach with Drainage Device, Via Natural or Artificial Opening (ICD-10-PCS; 2017-04-20)
PROC: 0DNH0ZZ Release Cecum, Open Approach (ICD-10-PCS; principal; 2017-04-22 13:00)
PROC: 0DTJ0ZZ Resection of Appendix, Open Approach (ICD-10-PCS; 2017-04-22 13:00)
DX: K56.51 Intestinal adhesions [bands], with partial obstruction (principal); K46.0 Unspecified abdominal hernia with obstruction, without gangrene; R18.8 Other ascites; N39.0 Urinary tract infection, site not specified; E87.5 Hyperkalemia; E83.42 Hypomagnesemia; R13.10 Dysphagia, unspecified; I10 Essential (primary) hypertension; I73.9 Peripheral vascular disease, unspecified; E78.5 Hyperlipidemia, unspecified; I25.10 Atherosclerotic heart disease of native coronary artery without angina pectoris; K56.41 Fecal impaction; K27.9 Peptic ulcer, site unspecified, unspecified as acute or chronic, without hemorrhage or perforation; E87.6 Hypokalemia; F12.90 Cannabis use, unspecified, uncomplicated; I25.2 Old myocardial infarction; Z79.82 Long term (current) use of aspirin; Z90.710 Acquired absence of both cervix and uterus; Z87.891 Personal history of nicotine dependence

== ENCOUNTER 2018-03-24 10:34 | Day surgery (SDC) | payer MEDICARE, MEDICAID ==
[2018-03-12 13:52] VITALS: BMI 19.2
[2018-03-24] MEDS ORDERED: Propofol 10 mg/ml Inj (20 ML) ONE ×2 (13:51→14:09)
[2018-03-24] MEDS ORDERED: Lidocaine PF 2% (5 ml) Inj (For Cardiac Arrhy) ONE (13:51)
[2018-03-24] MEDS ORDERED: Sodium Chloride 0.9% 1,000 ML IV SCH (14:30)
[2018-03-24 15:10] VITALS: BP 133/65; PULSE 58; RESP 16; TEMP 97.7; O2SAT 100
== END 2018-03-24 15:55 | disposition home or self-care (01) ==
LOC: ENDO 10:34
PROVIDERS: ATTEND Internal Medicine Gastroenterology
DX: K29.70 Gastritis, unspecified, without bleeding (principal); K44.9 Diaphragmatic hernia without obstruction or gangrene; K22.8 Other specified diseases of esophagus
CPT/HCPCS: 43239; 88305; 88312; 88342; J2704; J7030; J7040

== ENCOUNTER 2018-09-24 10:53 | Outpatient (CLI) | payer MEDICARE, MEDICAID | END 2018-09-24 10:54 | disposition home or self-care (01) | LOC: LAB 10:53 ==

== ENCOUNTER 2018-10-14 13:52 | Outpatient (CLI) | payer MEDICARE, MEDICAID | END 2018-10-14 13:53 | disposition home or self-care (01) | LOC: RAD 13:52 | DX: I73.9 Peripheral vascular disease, unspecified (principal) ==

== ENCOUNTER 2018-12-02 09:38 | Outpatient (CLI) | payer MEDICARE | END 2018-12-02 09:39 | disposition home or self-care (01) | LOC: RAD 09:38 ==